=== PATIENT | female | born 1990 | race Caucasian/White ===

== ENCOUNTER 2018-04-11 21:37 | Observation (INO) ==
[2018-04-12] MEDS ORDERED: Ketorolac Inj 30 MG/ML (IVP) Vial IV.PUSH ONE (01:54)
[2018-04-12 01:55] LABS: Baso # (Auto) 0.1 th/mm3 (0.0-0.2); Baso % (Auto) 0.9 % (0.0-2.0); Eos # (Auto) 0.1 th/mm3 (0.0-0.4); Eos % (Auto) 0.9 % (0.0-4.0); Hematocrit 30.9 % (35.0-46.0); Hemoglobin 10.7 gm/dL (11.6-15.3); Lymph # (Auto) 2.2 th/mm3 (1.0-4.8); Lymph % (Auto) 29.2 % (9.0-44.0); Mean Corpuscular HGB Conc 34.5 % (32.0-36.0); Mean Corpuscular Volume 81.4 fL (80.0-100.0); Mean Platelet Volume 7.1 fL (7.0-11.0); Mono # (Auto) 0.7 th/mm3 (0.0-0.9); Mono % (Auto) 9.7 % (0.0-8.0); Neut # (Auto) 4.4 th/mm3 (1.8-7.7); Neut % (Auto) 59.3 % (16.0-70.0); Platelet Count 302 th/mm3 (150-450); Red Cell Distribution Width 14.7 % (11.6-17.2); White Blood Count 7.4 th/mm3 (4.0-11.0)
[2018-04-12] MEDS ORDERED: Vancomycin Inj 1,000 MG in Sodium Chlor 0.9% Inj 250 ML IV.SIG PRN (02:00)
[2018-04-12] MEDS ORDERED: Vancomycin Inj 1 GM/200 ML PIGGYBACK IV.SIG SCH (02:00)
[2018-04-12 02:12] LABS: Activated Partial Thrombo Time 31.5 sec (24.3-30.1); Prothrombin Time 10.3 sec (9.8-11.6)
[2018-04-12 02:18] LABS: Anion Gap 5 meq/L (5-15); Blood Urea Nitrogen 12 mg/dL (7-18); Calcium 8.4 mg/dL (8.5-10.1); Carbon Dioxide 33.3 meq/L (21.0-32.0); Chloride 105 meq/L (98-107); Glomerular Filtration Rate Greater Than 89 mL/min (>89); Glucose,Random 97 mg/dL (74-106); Potassium 3.6 meq/L (3.5-5.1); Sodium 143 meq/L (136-145)
--- NOTE | 2018-04-12 03:11 | ED ---
HPI General Chief complaint: Extremity Injury, Lower Stated complaint: L Leg Complaint Time Seen by Provider: 04/12/18 01:22 Source: patient Mode of arrival: ambulatory History of Present Illness HPI narrative: Patient is a 28-year-old female that came because of abscess and cellulitis of her left inner thigh. She did not state anything regarding a DVT initially but apparently she did say that to the triage nurse. She was [facility] and left AMA because she was not being treated correctly per her assessment. She stated that she was on 2 antibiotics and she is not sure what they were but she does remember 1 of them was vancomycin. She has history of IV drug use. MD complaint: rash Associated symptoms: denies other symptoms Related Data Home Medications Medication Instructions Recorded Confirmed lamotrigine [Lamictal XR] 400 mg PO DAILY 04/12/18 04/12/18 quetiapine [Seroquel] 400 mg PO BID 04/12/18 04/12/18 trazodone 100 mg PO HS 04/12/18 04/12/18 Allergies Allergy/AdvReac Type Severity Reaction Status Date / Time No Known Allergies Allergy Unverified 04/11/18 22:23 Review of Systems ROS: all other systems reviewed are negative Integumentary/Breasts Comments: Redness cellulitis and areas of induration of left inner thigh. [facility] Medical History Medical History History of hysterectomy (Acute) Anxiety and depression (Acute) Arthritis, rheumatoid (Acute) Asthma (Acute) Hepatitis C (Acute) Social History Social History Substance History: Active Abuse Second Hand Smoke Exposure: Yes Smoking Status: Current every day smoker Tobacco Type: Cigarettes How Often Do You Have a Drink Containing Alcohol: Monthly or less Recent Travel in [facility] within the Last 8 Weeks: No Recent Out of Country Travel within the Last 8 Weeks: No Immunization History Tetanus Immunization: Unsure Course Initial Documented Vital Signs Temperature 98.8 F 04/11/18 22:23 Pulse Rate 102 H 04/11/18 22:23 Respiratory Rate 16 04/11/18 22:23 Blood Pressure 133/79 04/11/18 22:23 Pulse Oximetry 100 04/11/18 22:23 Last Documented Vital Signs Temperature 98.7 F 04/12/18 23:44 Pulse Rate 90 04/12/18 23:44 Respiratory Rate 16 04/12/18 23:44 Blood Pressure 106/62 04/12/18 23:44 Pulse Oximetry 98 08/17/18 23:44 Medical Decision Making MDM Narrative Medical decision making narrative: Patient with cellulitis and multiple indurations on the left inner thigh. She will be admitted for IV antibiotics and further consultation. Blood cultures were obtained and we also requested fax from [facility] for her cultures with the results being equivocal since she had some with yeast growth some without any growth and they were repeated prior to her coming to our facility. She was given Vancomycin was admitted for further evaluation and consultation. Medical Screen Exam Complete: Yes Emergency Medical Condition: Yes Lab Data Lab results reviewed: Yes I reviewed the patient's lab results. Result diagrams: 04/12/18 01:40 04/12/18 01:40 Lab Results 04/12/18 04/12/18 04/12/18 Range/Units 01:40 01:40 01:40 WBC 7.4 (4.0-11.0) th/mm3 RBC 3.80 L (4.00-5.30) mil/mm3 Hgb 10.7 L (11.6-15.3) gm/dL Hct 30.9 L (35.0-46.0) % MCV 81.4 (80.0-100.0) fL MCH 28.0 (27.0-34.0) pg MCHC 34.5 (32.0-36.0) % RDW 14.7 (11.6-17.2) % Plt Count 302 (150-450) th/mm3 MPV 7.1 (7.0-11.0) fL Neut % (Auto) 59.3 (16.0-70.0) % Lymph % (Auto) 29.2 (9.0-44.0) % Bay % (Auto) 9.7 H (0.0-8.0) % Eos % (Auto) 0.9 (0.0-4.0) % Baso % (Auto) 0.9 (0.0-2.0) % Neut # (Auto) 4.4 (1.8-7.7) th/mm3 Lymph # (Auto) 2.2 (1.0-4.8) th/mm3 Bay # (Auto) 0.7 (0.0-0.9) th/mm3 Eos # (Auto) 0.1 (0.0-0.4) th/mm3 Baso # (Auto) 0.1 (0.0-0.2) th/mm3 WBC Differential . Differential Comment Auto diff final ESR (0-20) mm/hr PT 10.3 (9.8-11.6) sec INR 1.0 Ratio APTT 31.5 H (24.3-30.1) sec Sodium 143 (136-145) meq/L Potassium 3.6 (3.5-5.1) meq/L Chloride 105 (98-107) meq/L Carbon Dioxide 33.3 H (21.0-32.0) meq/L Anion Gap 5 (5-15) meq/L BUN 12 (7-18) mg/dL Creatinine 0.64 (0.50-1.00) mg/dL Estimated GFR Greater than 89 (>89) mL/min Random Glucose 97 (74-106) mg/dL Lactic Acid (0.4-2.0) mmol/L Calcium 8.4 L (8.5-10.1) mg/dL 04/12/18 04/12/18 Range/Units 01:40 01:40 WBC (4.0-11.0) th/mm3 RBC (4.00-5.30) mil/mm3 Hgb (11.6-15.3) gm/dL Hct (35.0-46.0) % MCV (80.0-100.0) fL MCH (27.0-34.0) pg MCHC (32.0-36.0) % RDW (11.6-17.2) % Plt Count (150-450) th/mm3 MPV (7.0-11.0) fL Neut % (Auto) (16.0-70.0) % Lymph % (Auto) (9.0-44.0) % Bay % (Auto) (0.0-8.0) % Eos % (Auto) (0.0-4.0) % Baso % (Auto) (0.0-2.0) % Neut # (Auto) (1.8-7.7) th/mm3 Lymph # (Auto) (1.0-4.8) th/mm3 Bay # (Auto) (0.0-0.9) th/mm3 Eos # (Auto) (0.0-0.4) th/mm3 Baso # (Auto) (0.0-0.2) th/mm3 WBC Differential Differential Comment ESR 69 H (0-20) mm/hr PT (9.8-11.6) sec INR Ratio APTT (24.3-30.1) sec Sodium (136-145) meq/L Potassium (3.5-5.1) meq/L Chloride (98-107) meq/L Carbon Dioxide (21.0-32.0) meq/L Anion Gap (5-15) meq/L BUN (7-18) mg/dL Creatinine (0.50-1.00) mg/dL Estimated GFR (>89) mL/min Random Glucose (74-106) mg/dL Lactic Acid 0.6 (0.4-2.0) mmol/L Calcium (8.5-10.1) mg/dL Imaging Data Radiologist's impression: Chest X-Ray 04/12/18 00:00 CONCLUSION: Likely perihilar infiltrate on the right. Follow-up to normalization would be recommended. Discharge Plan Discharge Disposition Patient Disposition: 28 Still Patient Discharge Condition Condition: Good Discharge Details Diagnosis: Cellulitis and abscess of left leg, Drug abuse, IV Physicians Team ED Provider: Jensen Grigsby Primary Care Provider: Primary Care Do Neri Attending Provider: Ramesh Covarrubais Discharge Interventions Interventions: ED Discharge Assessment Last Done: 04/12/18 08:07 Vital Signs Last Done: 04/12/18 01:53 Status ED Status: Left Department Discharge Information Discharge Date/Time: 04/12/18 08:08
[2018-04-12] MEDS ORDERED: Acetaminophen 325 MG Tablet PO PRN (04:45)
[2018-04-12] MEDS ORDERED: Bisacodyl 10 MG Supp RECTAL PRN ×2 (04:45)
[2018-04-12] MEDS ORDERED: Temazepam 15 MG Capsule PO PRN (04:45)
[2018-04-12] MEDS: Sod Chloride 0.9% Inj 1,000 ML IV.CONT SCH ×2 (04:49→15:56)
[2018-04-12] MEDS: Senna/Docusate Sodium 8.6/50 MG Tablet PO SCH ×2 (08:12→20:24)
[2018-04-12] MEDS: Acetaminophen 325 MG Tablet PO PRN (08:12)
[2018-04-12] MEDS ORDERED: Senna/Docusate Sodium 8.6/50 MG Tablet PO SCH (09:00)
--- NOTE | 2018-04-12 09:04 | XR ---
EXAM DATE: 04/12/2018 9:01 AM EDT AGE/SEX: 28 years / Female INDICATIONS: Pain with breathing. CLINICAL DATA: This is the patient's initial encounter. Patient reports that signs and symptoms have been present for 1 day and indicates a pain score of 2/10. MEDICAL/SURGICAL HISTORY: None. None. COMPARISON: No prior exams available for comparison. FINDINGS: There is focal opacity in the right perihilar and right suprahilar region, likely inflammatory infilt rate. Left lung is clear. No effusion is present. Cardiac contours are satisfactory. CONCLUSION: Likely perihilar infiltrate on the right. Follow-up to normalization would be recommended. Electronically signed by: Larry Christopher MD 04/12/2018 9:03 AM EDT
[2018-04-12] MEDS: Piperacil/Tazo 3.375 GM Premix 50 ML IV.SIG SCH ×2 (10:15→18:04)
[2018-04-12] MEDS: Enoxaparin Inj 40 MG/0.4 ML Syringe SQ SCH (11:12)
--- NOTE | 2018-04-12 17:32 | P.HP ---
History of Present Illness Service: Hospitalist Primary Care Physician: No Primary Care Physician Chief Complaint: Infection in leg History of Present Illness: Patient is a 28-year-old female who presented to the emergency room on 04/12/18 with a complaint of infection in her left leg. Past medical history includes asthma, rheumatoid arthritis, depression and hepatitis C (not treated; low count). She was recently a patient at [facility] where she was being treated for the infection. Per her report she was getting vancomycin plus another antibiotic that she does not know the name of. Infection had been improving. She also reports that they told her she had a superficial blood clot in that leg. She left because she was not happy with how they were taking care of her. She also reports that she had a prior infection in February in her right breast that was treated with I&D and Bactrim plus Cipro. That infection has resolved per her report. She is seen lying in bed. She complains of a bad headache. She has also complaining of right-sided back/chest pain. Some pain with inspiration. No cough or sputum production. Denies any history of respiratory problems other than asthma. She does not take anything for her asthma other than occasional use of an albuterol inhaler. Denies any nausea vomiting or diarrhea. No fever or chills. She is noted to have multiple small skin lesions and scars over her legs and arms bilaterally. 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 She has recently quit that job as of February. Review of Systems All other systems reviewed negative except as stated in HPI PMFSH - History History Provided By: Patient - Medical History Medical History: Medical History (Last Updated 04/12/18 @ 17:09 by MARK Herron) History of hysterectomy (Acute) Anxiety and depression Arthritis, rheumatoid Asthma Hepatitis C - Family History Family History: Family History (Last Reviewed 04/12/18 @ 17:09 by MARK Herron) Grandparent Myocardial infarct Grandparent Pulmonary fibrosis Mother Non-Hodgkin lymphoma - Tobacco History Second Hand Smoke Exposure: Yes Tobacco Use In Past 30 Days: Yes Smoking Status: Current every day smoker Tobacco Type: Cigarettes - Alcohol History How Often Do You Have a Drink Containing Alcohol: Monthly or less - Substance Use History Substance History: Active Abuse - Travel History Recent Travel in the [place] Within the Last 8 Weeks: No Recent Travel Out of the Country Within the Last 8 Weeks: No - Immunization History Tetanus Immunization: Unsure Medications and Allergies Active Medications: Active Medications Acetaminophen (Tylenol) 650 mg PO Q4H PRN PRN Reason: PAIN 1-10 OR TEMP > 100.4 F Last Admin: 04/12/18 08:12 Dose: 650 mg Al Hydroxide/Mg Hydroxide (Milk Of Magnesia Liq) 30 ml PO Q12H PRN PRN Reason: Mild Constipation Bisacodyl (Dulcolax Supp) 10 mg RECTAL DAILY PRN PRN Reason: SEVERE CONSITIPATION Enoxaparin Sodium (Lovenox Inj) 40 mg SQ DAILY [facility] Last Admin: 04/12/18 11:12 Dose: Not Given Vancomycin HCl 1,000 mg/ (Sodium Chloride) 250 mls @ 250 mls/hr IV.SIG HAZMAT CDL A DRIVER PRN PRN Reason: SEE LABEL COMMENTS Last Infusion: 04/12/18 07:31 Dose: Infused Sodium Chloride (Ns Inj) 1,000 mls @ 100 mls/hr IV.CONT .Q10H [facility] Last Admin: 04/12/18 15:56 Dose: 100 mls/hr Piperacillin/Tazobactam/Dextrose (Zosyn 3.375 Gm Premix) 50 mls @ 100 mls/hr IV.SIG Q8H [facility] Last Infusion: 04/12/18 11:03 Dose: Infused Ketorolac Tromethamine (Toradol) 10 mg PO Q6H PRN PRN Reason: PAIN SCALE 1 TO 10 Lactulose (Lactulose Liq) 30 ml PO DAILY PRN PRN Reason: SEVERE CONSITIPATION Nicotine (Habitrol 21 Mg Patch.24 Hr) 1 patch T-DERMAL DAILY [facility] Last Admin: 04/12/18 16:32 Dose: Not Given Ondansetron HCl (Zofran Inj) 4 mg IV.PUSH Q6H PRN PRN Reason: NAUSEA OR VOMITING Patch Removal (Remove Old Patch) 1 each T-DERMAL DAILY [facility] Senna/Docusate Sodium (Stephenie-Colace) 1 tab PO BID [facility] Last Admin: 04/12/18 08:12 Dose: Not Given Sennosides (Senokot) 17.2 mg PO Q12H PRN PRN Reason: Moderate Constipation Temazepam (Restoril) 15 mg PO HS PRN PRN Reason: INSOMNIA Allergies Allergy/AdvReac Type Severity Reaction Status Date / Time No Known Allergies Allergy Unverified 04/11/18 22:23 Home Medications Medication Instructions Recorded Confirmed Type lamotrigine [Lamictal XR] 400 mg PO DAILY 04/12/18 04/12/18 History quetiapine [Seroquel] 400 mg PO BID 04/12/18 04/12/18 History trazodone 100 mg PO HS 04/12/18 04/12/18 History Exam Vital signs: Vital Signs 04/11/18 22:23 04/12/18 01:53 04/12/18 02:29 Temperature 98.8 F Pulse Rate 102 H 88 Respiratory Rate 16 16 16 Blood Pressure 133/79 123/76 Pulse Oximetry 100 98 04/12/18 04:54 04/12/18 12:01 04/12/18 16:00 Temperature 98.2 F 97.9 F Pulse Rate 65 78 70 Respiratory Rate 16 20 20 Blood Pressure 96/53 L 140/60 136/62 Pulse Oximetry 98 98 96 Intake & Output 04/11/18 04/12/18 04/12/18 18:59 06:59 18:59 Intake Total 1300 / 1300 Balance 1300 / 1300 Weight 72 kg Intake: IV 1300 / 1300 NS Inj 1,000 ML @ 100 mls/hr IV 1000 / 1000 .CONT .Q10H [facility] Rx#:[id number] Zosyn 3.375 GM Premix 50 ML @ 50 / 50 100 mls/hr IV.SIG Q8H [facility] Rx#: [id number] Vancomycin Inj 1,000 MG In NS 250 / 250 Inj 250 ML @ 250 mls/hr IV.SIG HAZMAT CDL A DRIVER PRN Rx#:[id number] Oral 0 / 0 Narrative: GENERAL: Well-nourished, well-developed adult female in no obvious distress. SKIN: Warm and dry. Multiple small lesions and scars across arms and legs bilaterally. Left leg inner thigh to knee area of erythema and mild swelling. Noted prior outline of borders -current area of infection is much smaller. No drainage. No indication of injury. HEAD: Atraumatic. Normocephalic. CARDIOVASCULAR: Regular rate and rhythm. RESPIRATORY: No accessory muscle use. Clear to auscultation. Breath sounds equal bilaterally. GASTROINTESTINAL: Abdomen soft, non-tender, distended. Positive bowel sounds. MUSCULOSKELETAL: Extremities without clubbing, cyanosis, or edema. Scoliosis. NEUROLOGICAL: Awake and alert. No obvious cranial nerve deficits. Motor grossly within normal limits. Normal speech. PSYCHIATRIC: Appropriate mood and affect; insight and judgment good. Results - Labs CBC & Chem 7: 04/12/18 01:40 04/12/18 01:40 Labs: Laboratory Results - last 24 hr 04/12/18 04/12/18 04/12/18 01:40 01:40 01:40 WBC 7.4 RBC 3.80 L Hgb 10.7 L Hct 30.9 L MCV 81.4 MCH 28.0 MCHC 34.5 RDW 14.7 Plt Count 302 MPV 7.1 Neut % (Auto) 59.3 Lymph % (Auto) 29.2 Posey % (Auto) 9.7 H Eos % (Auto) 0.9 Baso % (Auto) 0.9 Neut # (Auto) 4.4 Lymph # (Auto) 2.2 Posey # (Auto) 0.7 Eos # (Auto) 0.1 Baso # (Auto) 0.1 WBC Differential . Differential Comment Auto diff final ESR PT 10.3 INR 1.0 APTT 31.5 H Sodium 143 Potassium 3.6 Chloride 105 Carbon Dioxide 33.3 H Anion Gap 5 BUN 12 Creatinine 0.64 Estimated GFR Greater than 89 Random Glucose 97 Lactic Acid Calcium 8.4 L 04/12/18 04/12/18 01:40 01:40 WBC RBC Hgb Hct MCV MCH MCHC RDW Plt Count MPV Neut % (Auto) Lymph % (Auto) Posey % (Auto) Eos % (Auto) Baso % (Auto) Neut # (Auto) Lymph # (Auto) Posey # (Auto) Eos # (Auto) Baso # (Auto) WBC Differential Differential Comment ESR 69 H PT INR APTT Sodium Potassium Chloride Carbon Dioxide Anion Gap BUN Creatinine Estimated GFR Random Glucose Lactic Acid 0.6 Calcium - Imaging Impressions Chest X-Ray 04/12/18 00:00 CONCLUSION: Likely perihilar infiltrate on the right. Follow-up to normalization would be recommended. Caprini VTE Risk Assessment Caprini VTE Risk Assessment: No/Low Risk (score <= 1) VTE Pharmacological Exception Reason: Patient refusal VTE Mechanical Exception: LE injury/wound Caprini Risk Assessment Model: Point Value = 1 Point Value = 2 Point Value = 3 Point Value = 5 Age 41-60 Minor surgery BMI > 25 kg/m2 Swollen legs Varicose veins or History of unexplained or recurrent spontaneous Oral contraceptives or hormone replacement Sepsis (< 1 month) Serious lung disease, including pneumonia (< 1 month) Abnormal pulmonary function Acute myocardial infarction Congestive heart failure (< 1 month) History of inflammatory bowel disease Medical patient at bed rest Age 61-74 Arthroscopic surgery Major open surgery (> 45 min) Laparoscopic surgery (> 45 min) Malignancy Confined to bed (> 72 hours) Immobilizing plaster cast Central venous access Age >= 75 History of VTE Family history of VTE Factor V Leiden Prothrombin [id number] Lupus anticoagulant Anticardiolipin antibodies Elevated serum homocysteine Heparin-induced thrombocytopenia Other congenital or acquired thrombophilia Stroke (< 1 month) Elective arthroplasty Hip, pelvis, or leg fracture Acute spinal cord injury (< 1 month) Prophylaxis Regimen: Total Risk Factor Score Risk Level Prophylaxis Regimen 0-1 Low Early ambulation 2 Moderate Order ONE of the following: *Sequential Compression Device (SCD) *Heparin 5000 units SQ BID 3-4 Higher Order ONE of the following medications: *Heparin 5000 units SQ TID *Enoxaparin/Lovenox 40 mg SQ daily (WT < 150 kg, CrCl > 30 mL/min) *Enoxaparin/Lovenox 30 mg SQ daily (WT < 150 kg, CrCl > 10-29 mL/min) *Enoxaparin/Lovenox 30 mg SQ BID (WT < 150 kg, CrCl > 30 mL/min) AND/OR *Sequential Compression Device (SCD) 5 or more Highest Order ONE of the following medications: *Heparin 5000 units SQ TID (Preferred with Epidurals) *Enoxaparin/Lovenox 40 mg SQ daily (WT < 150 kg, CrCl > 30 mL/min) *Enoxaparin/Lovenox 30 mg SQ daily (WT < 150 kg, CrCl > 10-29 mL/min) *Enoxaparin/Lovenox 30 mg SQ BID (WT < 150 kg, CrCl > 30 mL/min) AND *Sequential Compression Device (SCD) Assessment and Plan - Plan Patient is a 28-year-old female who presented to the emergency room on 04/12/18 with a complaint of infection in her left leg. Past medical history includes asthma, rheumatoid arthritis, depression and hepatitis C (not treated; low count). Cellulitis-left leg -Vanco started in ED; added Zosyn -Labs grossly normal -Cultures pending; pt reports history of MRSA DVT-left leg -Reported by patient -records request from [facility] made -No associated leg pain or swelling noted; no prior history of DVT -Patient is refusing Lovenox/anticoagulant Pnx vs inflammation; Rt back/chest pain; asthma -Chest x-ray 04/12 indicated right perihilar infiltrate. -PRN Duonebs -pain could be exacerbated by underlying scoliosis; Toradol for pain control. Avoid narcotics. Anxiety/depression -Patient reports Seroquel, trazodone and Lamictal at home - continue Discussed with: Patient and nurse
[2018-04-12] MEDS ORDERED: Ketorolac 10 MG Tablet PO PRN (18:00)
[2018-04-12] MEDS: lamoTRIgine 100 MG Tablet PO SCH (20:23)
[2018-04-12] MEDS: traZODone 100 MG Tablet PO SCH (20:23)
[2018-04-13] MEDS ORDERED: Ketorolac Inj 30 MG/ML (IVP) Vial IV.PUSH ONE (00:30)
[2018-04-13] MEDS: Piperacil/Tazo 3.375 GM Premix 50 ML IV.SIG SCH ×3 (00:57→17:25)
[2018-04-13] MEDS: Sod Chloride 0.9% Inj 1,000 ML IV.CONT SCH ×2 (02:15→11:51)
[2018-04-13] MEDS ORDERED: LAMOTRIGINE 400 MG PO SCH (09:00)
[2018-04-13] MEDS: Senna/Docusate Sodium 8.6/50 MG Tablet PO SCH ×2 (09:52→21:00)
[2018-04-13] MEDS: Enoxaparin Inj 40 MG/0.4 ML Syringe SQ SCH (09:52)
[2018-04-13] MEDS: lamoTRIgine 100 MG Tablet PO SCH ×2 (09:53→20:59)
--- NOTE | 2018-04-13 15:55 | P.PN ---
Subjective Interval history: Patient is seen lying in bed. Reports that her leg feels much better and she is not having any pain in it anymore. She does wonder if she needs an echo due to the fact that she has a history of IV drug use -she was told in another facility that she might endocarditis from this. She does not have any fever. No cough. Blood cultures to date are negative. Told her at this time that there was no indication for evaluation for endocarditis. Nurse reports that patient has been refusing lab work and blood thinners as well as some other medications. Educated patient on the importance of compliance with the medical plan in order to prevent complications such as pulmonary embolism. Physical Exam Vital signs: Vital Signs 04/12/18 16:00 04/12/18 19:15 04/12/18 20:20 Temperature 97.9 F 98.5 F Pulse Rate 70 82 Respiratory Rate 20 18 16 Blood Pressure 136/62 133/76 Pulse Oximetry 96 100 04/12/18 23:44 04/13/18 03:56 04/13/18 08:27 Temperature 98.7 F 97.8 F 98.2 F Pulse Rate 90 69 68 Respiratory Rate 16 16 18 Blood Pressure 106/62 96/58 L 100/40 L Pulse Oximetry 98 100 98 04/13/18 12:38 Temperature 96.8 F L Pulse Rate 78 Respiratory Rate 18 Blood Pressure 110/60 Pulse Oximetry 98 Intake & Output 04/12/18 04/13/18 04/13/18 18:59 06:59 18:59 Intake Total 1350 / 1350 1050 / 1050 50 / 50 Balance 1350 / 1350 1050 / 1050 50 / 50 Intake: IV 1350 / 1350 1050 / 1050 50 / 50 NS Inj 1,000 ML @ 100 mls/hr IV 1000 / 1000 1000 / 1000 .CONT .Q10H [facility] Rx#:[id number] Zosyn 3.375 GM Premix 50 ML @ 100 / 100 50 / 50 50 / 50 100 mls/hr IV.SIG Q8H [facility] Rx#: [id number] Vancomycin Inj 1,000 MG In NS 250 / 250 Inj 250 ML @ 250 mls/hr IV.SIG [employer]ELOPMENT MANAGER PRN Rx#:[id number] Oral 0 / 0 Narrative: GENERAL: Well-nourished, well-developed adult female in no obvious distress. SKIN: Warm and dry. Multiple small lesions and scars across arms and legs bilaterally. Left leg inner thigh to knee area of erythema and mild swelling. Noted prior outline of borders -current area of infection is much smaller. No drainage. No indication of injury. HEAD: Atraumatic. Normocephalic. CARDIOVASCULAR: Regular rate and rhythm. RESPIRATORY: No accessory muscle use. Clear to auscultation. Breath sounds equal bilaterally. GASTROINTESTINAL: Abdomen soft, non-tender, distended. Positive bowel sounds. MUSCULOSKELETAL: Extremities without clubbing, cyanosis, or edema. Scoliosis. NEUROLOGICAL: Awake and alert. No obvious cranial nerve deficits. Motor grossly within normal limits. Normal speech. PSYCHIATRIC: Appropriate mood and affect; insight and judgment good. Results - Labs CBC & Chem 7: 04/12/18 01:40 04/12/18 01:40 Microbiology 04/12/18 01:45 Blood - Peripheral Aerobic Blood Culture - Preliminary No growth in 1 day 04/12/18 01:45 Blood - Peripheral Anaerobic Blood Culture - Preliminary No growth in 1 day 04/12/18 01:40 Blood - Peripheral Aerobic Blood Culture - Preliminary No growth in 1 day 04/12/18 01:40 Blood - Peripheral Anaerobic Blood Culture - Preliminary No growth in 1 day Assessment and Plan - Plan Patient is a 28-year-old female who presented to the emergency room on 04/12/18 with a complaint of infection in her left leg. Past medical history includes asthma, rheumatoid arthritis, depression and hepatitis C (not treated; low count). Cellulitis-left leg -Vanco started in ED; added Zosyn. Per patient she received IV vancomycin at [facility] for 4 days prior to being admitted at [place]. -Labs grossly normal -Cultures pending; pt reports history of MRSA; 04/13 no growth in 1 day DVT-left leg -Reported by patient -records request from [facility] made -No associated leg pain or swelling noted; no prior history of DVT Noncompliance with medical plan -Patient is refusing Lovenox/anticoagulant -Education provided Pnx vs inflammation; Rt back/chest pain; asthma -Chest x-ray 04/12 indicated right perihilar infiltrate. -PRN Duonebs -pain could be exacerbated by underlying scoliosis; Toradol for pain control. Avoid narcotics. Anxiety/depression -Patient reports Seroquel, trazodone and Lamictal at home - continue Discussed with: Patient and nurse
[2018-04-13] MEDS: Ketorolac Inj 30 MG/ML (IVP) Vial IV.PUSH PRN (17:25)
[2018-04-13 18:25] LABS: Baso # (Auto) 0.1 th/mm3 (0.0-0.2); Baso % (Auto) 0.9 % (0.0-2.0); Eos # (Auto) 0.2 th/mm3 (0.0-0.4); Eos % (Auto) 2.7 % (0.0-4.0); Hematocrit 31.3 % (35.0-46.0); Hemoglobin 10.4 gm/dL (11.6-15.3); Lymph # (Auto) 2.1 th/mm3 (1.0-4.8); Lymph % (Auto) 33.2 % (9.0-44.0); Mean Corpuscular HGB Conc 33.2 % (32.0-36.0); Mean Corpuscular Hemoglobin 27.6 pg (27.0-34.0); Mean Corpuscular Volume 83.1 fL (80.0-100.0); Mean Platelet Volume 8.1 fL (7.0-11.0); Mono # (Auto) 0.6 th/mm3 (0.0-0.9); Mono % (Auto) 9.5 % (0.0-8.0); Neut # (Auto) 3.4 th/mm3 (1.8-7.7); Neut % (Auto) 53.7 % (16.0-70.0); Platelet Count 298 th/mm3 (150-450); Red Blood Count 3.77 mil/mm3 (4.00-5.30); Red Cell Distribution Width 14.4 % (11.6-17.2); White Blood Count 6.3 th/mm3 (4.0-11.0)
[2018-04-13 18:49] LABS: Alanine Aminotransferase 37 U/L (10-53); Albumin 2.4 g/dL (3.4-5.0); Anion Gap 6 meq/L (5-15); Aspartate Aminotransferase 32 U/L (15-37); Blood Urea Nitrogen 11 mg/dL (7-18); Calcium 8.5 mg/dL (8.5-10.1); Carbon Dioxide 31.5 meq/L (21.0-32.0); Chloride 104 meq/L (98-107); Glomerular Filtration Rate Greater Than 89 mL/min (>89); Glucose,Random 73 mg/dL (74-106); Sodium 141 meq/L (136-145)
[2018-04-13 18:51] LABS: Alkaline Phosphatase 87 U/L (45-117); Total Protein 7.2 g/dL (6.4-8.2)
[2018-04-13] MEDS: traZODone 100 MG Tablet PO SCH (21:00)
[2018-04-14] MEDS: Piperacil/Tazo 3.375 GM Premix 50 ML IV.SIG SCH ×3 (02:21→16:13)
[2018-04-14] MEDS: lamoTRIgine 100 MG Tablet PO SCH ×2 (11:13→20:32)
[2018-04-14] MEDS: Enoxaparin Inj 40 MG/0.4 ML Syringe SQ SCH (11:14)
[2018-04-14] MEDS: Senna/Docusate Sodium 8.6/50 MG Tablet PO SCH ×2 (11:14→21:01)
[2018-04-14] MEDS: Ketorolac Inj 30 MG/ML (IVP) Vial IV.PUSH PRN ×2 (11:15→20:28)
--- NOTE | 2018-04-14 15:48 | P.PN ---
Subjective Interval history: Patient is seen lying quietly in bed. She denies any fever or chills. No nausea vomiting or diarrhea. No new leg pain or swelling. Physical Exam Vital signs: Vital Signs 04/13/18 17:55 04/13/18 19:23 04/13/18 23:16 Temperature 98.2 F 98.7 F 99.2 F Pulse Rate 68 83 92 H Respiratory Rate 20 16 16 Blood Pressure 130/80 115/69 106/53 L Pulse Oximetry 96 100 97 04/14/18 03:46 04/14/18 08:00 04/14/18 12:00 Temperature 99 F 98.5 F 99.0 F Pulse Rate 85 78 78 Respiratory Rate 16 16 16 Blood Pressure 107/57 L 110/73 121/71 Pulse Oximetry 100 98 98 Intake & Output 04/13/18 04/14/18 04/14/18 18:59 06:59 18:59 Intake Total 100 / 100 50 / 50 50 / 50 Balance 100 / 100 50 / 50 50 / 50 Intake: IV 100 / 100 50 / 50 50 / 50 Zosyn 3.375 GM Premix 50 ML @ 100 / 100 50 / 50 50 / 50 100 mls/hr IV.SIG Q8H [facility] Rx#: [id number] Narrative: GENERAL: Well-nourished, well-developed adult female in no obvious distress. SKIN: Warm and dry. Multiple small lesions and scars across arms and legs bilaterally. Left leg inner thigh to knee area of erythema and mild swelling has almost completely resolved. No drainage. No indication of injury. HEAD: Atraumatic. Normocephalic. CARDIOVASCULAR: Regular rate and rhythm. RESPIRATORY: No accessory muscle use. Clear to auscultation. Breath sounds equal bilaterally. GASTROINTESTINAL: Abdomen soft, non-tender, distended. Positive bowel sounds. MUSCULOSKELETAL: Extremities without clubbing, cyanosis, or edema. Scoliosis. NEUROLOGICAL: Awake and alert. No obvious cranial nerve deficits. Motor grossly within normal limits. Normal speech. PSYCHIATRIC: Appropriate mood and affect; insight and judgment good. Results - Labs CBC & Chem 7: 04/13/18 17:12 04/13/18 17:12 Laboratory Results - last 24 hr 04/13/18 04/13/18 17:12 17:12 WBC 6.3 RBC 3.77 L Hgb 10.4 L Hct 31.3 L MCV 83.1 MCH 27.6 MCHC 33.2 RDW 14.4 Plt Count 298 MPV 8.1 Neut % (Auto) 53.7 Lymph % (Auto) 33.2 [place] % (Auto) 9.5 H Eos % (Auto) 2.7 Baso % (Auto) 0.9 Neut # (Auto) 3.4 Lymph # (Auto) 2.1 [place] # (Auto) 0.6 Eos # (Auto) 0.2 Baso # (Auto) 0.1 WBC Differential . Differential Comment Auto diff final Sodium 141 Potassium 4.0 Chloride 104 Carbon Dioxide 31.5 Anion Gap 6 BUN 11 Creatinine 0.70 Estimated GFR Greater than 89 Random Glucose 73 L Calcium 8.5 Total Bilirubin 0.1 L AST 32 ALT 37 Alkaline Phosphatase 87 Total Protein 7.2 Albumin 2.4 L Microbiology 04/12/18 01:45 Blood - Peripheral Aerobic Blood Culture - Preliminary No growth in 2 days 04/12/18 01:45 Blood - Peripheral Anaerobic Blood Culture - Preliminary No growth in 2 days 04/12/18 01:40 Blood - Peripheral Aerobic Blood Culture - Preliminary No growth in 2 days 04/12/18 01:40 Blood - Peripheral Anaerobic Blood Culture - Preliminary No growth in 2 days Assessment and Plan - Plan Patient is a 28-year-old female who presented to the emergency room on 04/12/18 with a complaint of infection in her left leg. Past medical history includes asthma, rheumatoid arthritis, depression and hepatitis C (not treated; low count). Cellulitis-left leg -Vanco started in ED; added Zosyn. Per patient she received IV vancomycin at [facility] for 4 days prior to being admitted at [place]. -Labs grossly normal -Cultures pending; pt reports history of MRSA; 04/14 no growth in 2 day DVT-left leg -Reported by patient -records request from [facility] NSB made -No associated leg pain or swelling noted; no prior history of DVT Noncompliance with medical plan -Patient is refusing Lovenox/anticoagulant -Education provided Pnx vs inflammation; Rt back/chest pain; asthma -Chest x-ray 04/12 indicated right perihilar infiltrate. -PRN Duonebs -pain could be exacerbated by underlying scoliosis; Toradol for pain control. Avoid narcotics. Anxiety/depression -Patient reports Seroquel, trazodone and Lamictal at home - continue Discussed with: Patient and nurse Discharge planning: Will likely discharge home tomorrow on Bactrim and Augmentin if cultures remain negative
[2018-04-14] MEDS: Acetaminophen 325 MG Tablet PO PRN (16:15)
--- NOTE | 2018-04-14 17:44 | US ---
EXAM DATE: 04/14/2018 5:41 PM EDT AGE/SEX: 28 years / Female INDICATIONS: Left leg pain. CLINICAL DATA: This is the patient's initial encounter. Patient reports that signs and symptoms have been present for 2 days and indicates a pain score of 3/10. MEDICAL/SURGICAL HISTORY: Asthma. Hepatitis C. Rheumatoid arthritis. Hysterectomy. COMPARISON: No prior exams available for comparison. TECHNIQUE: Venous ultrasound of both lower extremities was performed from the inguinal ligament to t he proximal calf. Real-time, color Doppler and spectral tracing, compression and augmentation techni ques were used. FINDINGS: Normal compression of the deep venous system from the inguinal region to the proximal calf . No echogenic clot is seen. Normal response of the venous system to augmentation and respiration. A sonographically normal-appearing lymph node is seen in the left groin measuring 2.3 x 1.5 x 0.4 cm. CONCLUSION: 1. The study is negative for lower extremity deep venous thrombosis. Electronically signed by: Porter Schmidt MD 04/14/2018 5:43 PM EDT
[2018-04-14] MEDS: traZODone 100 MG Tablet PO SCH (20:29)
[2018-04-15] MEDS: Piperacil/Tazo 3.375 GM Premix 50 ML IV.SIG SCH ×2 (01:17→09:32)
[2018-04-15 04:57] VITALS: PULSE 72; RESP 16
--- NOTE | 2018-04-15 07:42 | P.PN ---
Subjective Interval history: Patient is seen lying quietly in bed. Denies any chest pain or shortness of breath. No nausea vomiting or diarrhea. She tells me she is ready to go home. Physical Exam Vital signs: Vital Signs 04/14/18 08:00 04/14/18 12:00 04/14/18 16:00 Temperature 98.5 F 99.0 F 98.7 F Pulse Rate 78 78 83 Respiratory Rate 16 16 16 Blood Pressure 110/73 121/71 126/71 Pulse Oximetry 98 98 100 04/14/18 20:00 04/14/18 23:56 04/15/18 00:37 Temperature 98.8 F 97.8 F Pulse Rate 84 75 Respiratory Rate 16 16 17 Blood Pressure 115/66 105/64 Pulse Oximetry 100 100 04/15/18 04:00 Temperature 98 F Pulse Rate 72 Respiratory Rate 16 Blood Pressure 106/59 L Pulse Oximetry 99 Intake & Output 04/14/18 04/15/18 04/15/18 18:59 06:59 18:59 Intake Total 100 / 100 290 / 290 Balance 100 / 100 290 / 290 Intake: IV 100 / 100 50 / 50 Zosyn 3.375 GM Premix 50 ML @ 100 / 100 50 / 50 100 mls/hr IV.SIG Q8H [facility] Rx#: [id number] Oral 240 / 240 Other: # Voids 4 Narrative: GENERAL: Well-nourished, well-developed adult female in no obvious distress. SKIN: Warm and dry. Multiple small lesions and scars across arms and legs bilaterally. Left leg inner thigh to knee area of erythema and mild swelling has resolved. No drainage. No indication of injury. HEAD: Atraumatic. Normocephalic. CARDIOVASCULAR: Regular rate and rhythm. RESPIRATORY: No accessory muscle use. Clear to auscultation. Breath sounds equal bilaterally. GASTROINTESTINAL: Abdomen soft, non-tender, distended. Positive bowel sounds. MUSCULOSKELETAL: Extremities without clubbing, cyanosis, or edema. Scoliosis. NEUROLOGICAL: Awake and alert. No obvious cranial nerve deficits. Motor grossly within normal limits. Normal speech. PSYCHIATRIC: Appropriate mood and affect; insight and judgment good. Results - Labs CBC & Chem 7: 04/13/18 17:12 04/13/18 17:12 Microbiology 04/12/18 01:45 Blood - Peripheral Aerobic Blood Culture - Preliminary No growth in 2 days 04/12/18 01:45 Blood - Peripheral Anaerobic Blood Culture - Preliminary No growth in 2 days 04/12/18 01:40 Blood - Peripheral Aerobic Blood Culture - Preliminary No growth in 2 days 04/12/18 01:40 Blood - Peripheral Anaerobic Blood Culture - Preliminary No growth in 2 days - Imaging Impressions Venous Doppler Study 04/14/18 00:00 CONCLUSION: 1. The study is negative for lower extremity deep venous thrombosis. Assessment and Plan - Plan Patient is a 28-year-old female who presented to the emergency room on 04/12/18 with a complaint of infection in her left leg. Past medical history includes asthma, rheumatoid arthritis, depression and hepatitis C (not treated; low count). Cellulitis-left leg -Vanco started in ED; added Zosyn. Per patient she received IV vancomycin at [facility] for 4 days prior to being admitted at [place]. Will discharge home with Augmentin and Bactrim. -Labs grossly normal -Cultures pending; pt reports history of MRSA; 04/14 no growth in 2 day DVT-left leg -Reported by patient -records request from [facility] NSB made. Unable to obtain records. Repeat ultrasound 04/15 showed no DVT. -No associated leg pain or swelling noted; no prior history of DVT Noncompliance with medical plan -Patient is refusing Lovenox/anticoagulant -Education provided Pnx vs inflammation; Rt back/chest pain; asthma -Chest x-ray 04/12 indicated right perihilar infiltrate. -PRN Duonebs -pain could be exacerbated by underlying scoliosis; Toradol for pain control. Avoid narcotics. Anxiety/depression -Patient reports Seroquel, trazodone and Lamictal at home - continue Discussed with: Patient and nurse Discharge planning: Discharge home today
--- NOTE | 2018-04-15 07:46 | P.DS ---
Date of admission: 04/12/18 04:44 Primary care physician: No Primary Care Physician Attending physician on discharge: Ramesh Covarrubias Anticipated date of discharge: 04/15/18 Brief History from admission: Patient is a 28-year-old female who presented to the emergency room on 04/12/18 with a complaint of infection in her left leg. Past medical history includes asthma, rheumatoid arthritis, depression and hepatitis C (not treated; low count). She was recently a patient at [facility] where she was being treated for the infection. Per her report she was getting vancomycin plus another antibiotic that she does not know the name of. Infection had been improving. She also reports that they told her she had a superficial blood clot in that leg. She left because she was not happy with how they were taking care of her. She also reports that she had a prior infection in February in her right breast that was treated with I&D and Bactrim plus Cipro. That infection has resolved per her report. She is seen lying in bed. She complains of a bad headache. She has also complaining of right-sided back/chest pain. Some pain with inspiration. No cough or sputum production. Denies any history of respiratory problems other than asthma. She does not take anything for her asthma other than occasional use of an albuterol inhaler. Denies any nausea vomiting or diarrhea. No fever or chills. She is noted to have multiple small skin lesions and scars over her legs and arms bilaterally. 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 She has recently quit that job as of February. DS: Diagnosis - Discharge Diagnosis (1) Cellulitis and abscess of left leg Status: Acute DS: Medications - Discharge Medications Prescriptions: amoxicillin-pot clavulanate 1 tab PO Q12HR #14 tab sulfamethoxazole-trimethoprim 1 tab PO Q12HR #14 tab DS: Summary Hospital Course: Patient is a 28-year-old female who presented to the emergency room on 04/12/18 with a complaint of infection in her left leg. Past medical history includes asthma, rheumatoid arthritis, depression and hepatitis C (not treated; low count). Pt reports history of MRSA in left breast abscess treated earlier this year. Diagnosis of Cellulitis-left leg. Treated with both IV Vanco and Zosyn. Per patient she received IV vancomycin at [facility] for 4 days prior to being admitted at [place]. Discharge home with Augmentin and Bactrim for additional coverage based on history. Labs grossly normal during stay. Cultures no growth for 72 hours. Patient also had a complaint of DVT-left leg which she said was initially diagnosed in [facility]. They told her it was superficial. Records request from [facility] NSB made. Unable to obtain records. Repeat ultrasound 04/15 showed no DVT. No associated leg pain or swelling noted; no prior history of DVT. Patient was noted to be noncompliant with medical plan during her stay. Consistently refused Lovenox despite education. - Time Spent with Patient Total time spent providing and/or coordinating discharge services: Less than 30 minutes - Quality: VTE Deep Vein Thrombosis/Pulmonary Embolism Present on Admission: No Exam Vital signs: Vital Signs 04/14/18 08:00 04/14/18 12:00 04/14/18 16:00 Temperature 98.5 F 99.0 F 98.7 F Pulse Rate 78 78 83 Respiratory Rate 16 16 16 Blood Pressure 110/73 121/71 126/71 Pulse Oximetry 98 98 100 04/14/18 20:00 04/14/18 23:56 04/15/18 00:37 Temperature 98.8 F 97.8 F Pulse Rate 84 75 Respiratory Rate 16 16 17 Blood Pressure 115/66 105/64 Pulse Oximetry 100 100 04/15/18 04:00 Temperature 98 F Pulse Rate 72 Respiratory Rate 16 Blood Pressure 106/59 L Pulse Oximetry 99 Intake & Output 04/14/18 04/15/18 04/15/18 18:59 06:59 18:59 Intake Total 100 / 100 290 / 290 Balance 100 / 100 290 / 290 Intake: IV 100 / 100 50 / 50 Zosyn 3.375 GM Premix 50 ML @ 100 / 100 50 / 50 100 mls/hr IV.SIG Q8H [facility] Rx#: [id number] Oral 240 / 240 Other: # Voids 4 Narrative: GENERAL: Well-nourished, well-developed adult female in no obvious distress. SKIN: Warm and dry. Multiple small lesions and scars across arms and legs bilaterally. Left leg inner thigh to knee area of erythema and mild swelling has resolved. No drainage. No indication of injury. HEAD: Atraumatic. Normocephalic. CARDIOVASCULAR: Regular rate and rhythm. RESPIRATORY: No accessory muscle use. Clear to auscultation. Breath sounds equal bilaterally. GASTROINTESTINAL: Abdomen soft, non-tender, distended. Positive bowel sounds. MUSCULOSKELETAL: Extremities without clubbing, cyanosis, or edema. Scoliosis. NEUROLOGICAL: Awake and alert. No obvious cranial nerve deficits. Motor grossly within normal limits. Normal speech. PSYCHIATRIC: Appropriate mood and affect; insight and judgment good. Results Procedures completed during hospitalization: none Labs on day of discharge: Preliminary micro results at discharge 04/12/18 01:45 Aerobic Blood Culture - Preliminary Blood - Peripheral No growth in 2 days Anaerobic Blood Culture - Preliminary No growth in 2 days 04/12/18 01:40 Aerobic Blood Culture - Preliminary Blood - Peripheral No growth in 2 days Anaerobic Blood Culture - Preliminary No growth in 2 days - Impressions ITS Impressions Chest X-Ray 04/12/18 00:00 CONCLUSION: Likely perihilar infiltrate on the right. Follow-up to normalization would be recommended. Venous Doppler Study 04/14/18 00:00 CONCLUSION: 1. The study is negative for lower extremity deep venous thrombosis. Discharge Plan - Discharge Disposition Patient Disposition: Discharge Home - Discharge Condition Condition: Good - Discharge Order Discharge Orders: Discharge Order (Routine); Ordered 04/15/18 Ordered By: Flori Almanzar - Physicians Team Primary Care Provider: Primary Care [place],Do Attending Provider: Ramesh Covarrubias
[2018-04-15 08:45] VITALS: BP 120/75; TEMP 97.6; O2SAT 100
[2018-04-15] MEDS ORDERED: Amoxicillin/Clavulanate 875/125 MG Tablet PO SCH (09:00)
[2018-04-15] MEDS: lamoTRIgine 100 MG Tablet PO SCH (10:02)
[2018-04-15] MEDS: Enoxaparin Inj 40 MG/0.4 ML Syringe SQ SCH (10:02)
[2018-04-15] MEDS: Senna/Docusate Sodium 8.6/50 MG Tablet PO SCH (10:25)
== END 2018-04-15 10:59 | disposition home or self-care (01) ==
LOC: NEPC 21:37 → NEPGCP 21:37 → NEDA 21:37 → NEPGCP 04-12 07:24
PROVIDERS: ADMIT Hospitalist; ATTEND Hospitalist

== ENCOUNTER 2018-06-18 09:34 | Inpatient (IN) ==
[2018-06-18] MEDS ORDERED: Acetaminophen 325 MG Tablet PO ONE (11:20)
[2018-06-18] MEDS ORDERED: Ketorolac Inj 30 MG/ML (IVP) Vial IV.PUSH ONE (11:20)
[2018-06-18] MEDS ORDERED: Sod Chloride 0.9% Inj 1,000 ML IV.SIG SCH ×2 (11:30→13:15)
--- NOTE | 2018-06-18 12:08 | XR ---
EXAM DATE: 06/18/2018 11:20 AM EDT AGE/SEX: 28 years / Female INDICATIONS: Fever and left leg pain. CLINICAL DATA: This is the patient's initial encounter. Patient reports that signs and symptoms have been present for 1 day and indicates a pain score of 5/10. MEDICAL/SURGICAL HISTORY: . Asthma. Hepatitis C. Rheumatoid arthritis. Hysterectomy. COMPARISON: [facility] [place], CHEST 1V SINGLE AP, 04/12/2018. . FINDINGS: Focal rounded infiltrate or mass in the left midlung. Resolution of right perihilar parenchymal proce ss. No evidence of effusion. Cardiac contours are stable and satisfactory. CONCLUSION: Left lung presumed infiltrate. Follow-up to resolution recommended Electronically signed by: Larry Christopher MD 06/18/2018 12:07 PM EDT
[2018-06-18 12:29] LABS: Baso # (Auto) 0.1 th/mm3 (0.0-0.2); Baso % (Auto) 0.4 % (0.0-2.0); Eos # (Auto) 0.1 th/mm3 (0.0-0.4); Eos % (Auto) 0.4 % (0.0-4.0); Hematocrit 34.1 % (35.0-46.0); Hemoglobin 11.3 gm/dL (11.6-15.3); Lymph # (Auto) 2.4 th/mm3 (1.0-4.8); Lymph % (Auto) 11.2 % (9.0-44.0); Mean Corpuscular HGB Conc 33.2 % (32.0-36.0); Mean Corpuscular Hemoglobin 27.5 pg (27.0-34.0); Mean Corpuscular Volume 82.8 fL (80.0-100.0); Mean Platelet Volume 7.2 fL (7.0-11.0); Mono # (Auto) 1.8 th/mm3 (0.0-0.9); Mono % (Auto) 8.3 % (0.0-8.0); Neut % (Auto) 79.7 % (16.0-70.0); Platelet Count 332 th/mm3 (150-450); Red Blood Count 4.12 mil/mm3 (4.00-5.30); Red Cell Distribution Width 15.4 % (11.6-17.2); White Blood Count 21.4 th/mm3 (4.0-11.0)
--- NOTE | 2018-06-18 12:33 | ED ---
HPI General Chief complaint: Extremity Problem,Nontraumatic Stated complaint: Poss Blood Clot Time Seen by Provider: 06/18/18 11:14 Source: patient Mode of arrival: ambulatory Limitations: no limitations History of Present Illness HPI Narrative: 28-year-old female with a history of IV drug use presents to the emergency department evaluation of left lower extremity pain that has worsened over the last couple of days. Patient states Sunday she was watching TV when she started having pain in the left thigh. She says she thought she hit her thigh however, the pain is worsened and decided to come in today for evaluation. She states that she has felt feverish and had chills. Her pain in the leg is worse with movement and palpation described as aching. Patient states she takes Subutex but he used IV Dilaudid prior to come to the emergency department today to relieve some of her pain. She states that she has injected into the left leg previously and has multiple injection points. She says that she was here in the emergency department, admitted and discharged Bactrim and Cipro but patient did not take this medication because she could not obtain the medication free of charge. MD Complaint: Reports extremity pain Onset (ago): day(s) Pain Consistency: constant Location: Reports left Quality: Reports aching Radiation: Reports none Relieving factors: nothing Exacerbating factors: weight bearing, walking and palpation Associated symptoms: Reports fever and myalgias; Denies chest pain, shortness of breath and rash Related Data Home Medications Medication Instructions Recorded Confirmed lamotrigine [Lamictal XR] 400 mg PO DAILY 04/12/18 06/18/18 quetiapine [Seroquel] 400 mg PO BID 04/12/18 06/18/18 trazodone 100 mg PO HS 04/12/18 06/18/18 Allergies Allergy/AdvReac Type Severity Reaction Status Date / Time telithromycin [From Ketek] Allergy Hives Verified 06/18/18 09:52 Review of Systems ROS: all other systems reviewed are negative [facility] Medical History Medical History History of hysterectomy (Acute) Anxiety and depression (Acute) Arthritis, rheumatoid (Acute) Asthma (Acute) Hepatitis C (Acute) Social History Social History Substance History: Active Abuse Second Hand Smoke Exposure: Yes Smoking Status: Current every day smoker Tobacco Type: Cigarettes How Often Do You Have a Drink Containing Alcohol: Monthly or less Recent Travel in [facility] within the Last 8 Weeks: No Recent Out of Country Travel within the Last 8 Weeks: No Substance Abuse Detail Opiates: Substance Use Status: Active Route Used Substance Abuse: Intravenously Substance Frequency: daily Immunization History Tetanus Immunization: >5 Years Exam Narrative Exam Narrative: GENERAL: Well-developed, well-nourished in mild distress, anxious and sad appearing SKIN: Focused skin assessment warm/dry. Multiple superficial ulcerations to the upper and lower extremities. Left lower extremity-tenderness to palpation of the thigh, focused in the left groin with questionable enlargement of a lymph node. Lower anterior mid thigh with apparent lymphangitis. No edema or erythema to leg. HEAD: Atraumatic. Normocephalic. EYES: Pupils equal and round. No scleral icterus. No injection or drainage. ENT: No nasal bleeding or discharge. Mucous membranes pink and moist. NECK: Trachea midline. No JVD. CARDIOVASCULAR: Regular rate and rhythm. No murmur appreciated. RESPIRATORY: No accessory muscle use. Breath sounds equal bilaterally. Diffuse rhonchi present GASTROINTESTINAL: Abdomen soft, non-tender, nondistended. Hepatic and splenic margins not palpable. No CVA tenderness MUSCULOSKELETAL: No obvious deformities. No clubbing. No cyanosis. No edema. NEUROLOGICAL: Awake and alert. No obvious cranial nerve deficits. Motor grossly within normal limits. Normal speech. PSYCHIATRIC: Appropriate mood and affect; insight and judgment normal. Course Initial Documented Vital Signs Temperature 100.2 F H 06/18/18 09:49 Pulse Rate 114 H 06/18/18 09:49 Respiratory Rate 15 06/18/18 09:49 Blood Pressure 149/79 H 06/18/18 09:49 Pulse Oximetry 98 06/18/18 09:49 Last Documented Vital Signs Temperature 99.3 F 06/18/18 13:26 Pulse Rate 107 H 06/18/18 10:07 Respiratory Rate 17 06/18/18 10:07 Blood Pressure 137/77 06/18/18 10:07 Pulse Oximetry 100 06/18/18 10:07 Medical Decision Making MDM Narrative Medical decision making narrative: 28-year-old female presents to the emergency department for evaluation of left lower extremity pain that is been worsening since Sunday. Patient denies trauma to the area but thought she may bumped it because of the pain. She says the pain is worsened she decided to come in today for evaluation. She says she took IV Dilaudid prior to come to the emergency department today to relieve some of her pain. Patient stated that she has a history of a DVT however, there is no evidence of this and [place] record. Patient was admitted and administered antibiotics for an apparent infection in the left leg. DVT was ruled out at this time. Vital signs: Heart rate 107, temperature 100.7, blood pressure 137/77, 100% on room air. Physical exam findings are unconvincing of a DVT but rather thrombophlebitis. Rhonchi present diffusely in the lung manzano. She denies shortness of breath or chest pain at this time. Chest x-ray shows left lung presumed infiltrate. EKG sinus tachycardia without STEMI changes. No previous EKG for comparison. Labs are notable for white blood cell 21.4, neutrophil percentage 79.7, sodium 134, potassium 4.0, chloride 100, lactic acid 1.2. 2 L normal saline initiated IV. Toradol and Tylenol administered for pain and developing fever. I spoke my attending about this patient who agreed this patient should be admitted with IV abx. Vancomycin initiated. I spoke with the patient about the admission and plan for treatment. She asked if me if she would be able to fly to [place] to see her children but I could not assure her of this. I asked her to discuss with the admission physician and advised against leaving [place] as this could result in . She agreed to stay in the hospital for evaluation and discuss with the admitting physician. I spoke with Dr. Sierra who agreed to the admission. Medical Screen Exam Complete: Yes Emergency Medical Condition: Yes Differential Diagnosis Differential Diagnosis: Sepsis, thrombophlebitis, bacteremia Lab Data Result diagrams: 06/18/18 12:04 06/18/18 12:04 Lab Results 06/18/18 06/18/18 06/18/18 Range/Units 12:04 12:04 12:04 WBC 21.4 H (4.0-11.0) th/mm3 RBC 4.12 (4.00-5.30) mil/mm3 Hgb 11.3 L (11.6-15.3) gm/dL Hct 34.1 L (35.0-46.0) % MCV 82.8 (80.0-100.0) fL MCH 27.5 (27.0-34.0) pg MCHC 33.2 (32.0-36.0) % RDW 15.4 (11.6-17.2) % Plt Count 332 (150-450) th/mm3 MPV 7.2 (7.0-11.0) fL Neut % (Auto) 79.7 H (16.0-70.0) % Lymph % (Auto) 11.2 (9.0-44.0) % Bailey % (Auto) 8.3 H (0.0-8.0) % Eos % (Auto) 0.4 (0.0-4.0) % Baso % (Auto) 0.4 (0.0-2.0) % Neut # (Auto) 17.0 H (1.8-7.7) th/mm3 Lymph # (Auto) 2.4 (1.0-4.8) th/mm3 Bailey # (Auto) 1.8 H (0.0-0.9) th/mm3 Eos # (Auto) 0.1 (0.0-0.4) th/mm3 Baso # (Auto) 0.1 (0.0-0.2) th/mm3 WBC Differential . Differential Comment Auto diff final PT 11.6 (9.8-11.6) sec INR 1.1 Ratio APTT 38.9 H (24.3-30.1) sec Sodium 134 L (136-145) meq/L Potassium 4.0 (3.5-5.1) meq/L Chloride 100 (98-107) meq/L Carbon Dioxide 26.6 (21.0-32.0) meq/L Anion Gap 7 (5-15) meq/L BUN 9 (7-18) mg/dL Creatinine 0.66 (0.50-1.00) mg/dL Estimated GFR Greater than 89 (>89) mL/min Random Glucose 106 (74-106) mg/dL Lactic Acid (0.4-2.0) mmol/L Calcium 8.7 (8.5-10.1) mg/dL Magnesium 1.8 (1.5-2.5) mg/dL Total Bilirubin 0.3 (0.2-1.0) mg/dL AST 16 (15-37) U/L ALT 35 (10-53) U/L Alkaline Phosphatase 99 (45-117) U/L Total Protein 8.5 H (6.4-8.2) g/dL Albumin 2.7 L (3.4-5.0) g/dL 06/18/18 Range/Units 12:04 WBC (4.0-11.0) th/mm3 RBC (4.00-5.30) mil/mm3 Hgb (11.6-15.3) gm/dL Hct (35.0-46.0) % MCV (80.0-100.0) fL MCH (27.0-34.0) pg MCHC (32.0-36.0) % RDW (11.6-17.2) % Plt Count (150-450) th/mm3 MPV (7.0-11.0) fL Neut % (Auto) (16.0-70.0) % Lymph % (Auto) (9.0-44.0) % Bailey % (Auto) (0.0-8.0) % Eos % (Auto) (0.0-4.0) % Baso % (Auto) (0.0-2.0) % Neut # (Auto) (1.8-7.7) th/mm3 Lymph # (Auto) (1.0-4.8) th/mm3 Bailey # (Auto) (0.0-0.9) th/mm3 Eos # (Auto) (0.0-0.4) th/mm3 Baso # (Auto) (0.0-0.2) th/mm3 WBC Differential Differential Comment PT (9.8-11.6) sec INR Ratio APTT (24.3-30.1) sec Sodium (136-145) meq/L Potassium (3.5-5.1) meq/L Chloride (98-107) meq/L Carbon Dioxide (21.0-32.0) meq/L Anion Gap (5-15) meq/L BUN (7-18) mg/dL Creatinine (0.50-1.00) mg/dL Estimated GFR (>89) mL/min Random Glucose (74-106) mg/dL Lactic Acid 1.2 (0.4-2.0) mmol/L Calcium (8.5-10.1) mg/dL Magnesium (1.5-2.5) mg/dL Total Bilirubin (0.2-1.0) mg/dL AST (15-37) U/L ALT (10-53) U/L Alkaline Phosphatase (45-117) U/L Total Protein (6.4-8.2) g/dL Albumin (3.4-5.0) g/dL Imaging Data Radiologist's impression: Chest X-Ray 06/18/18 11:20 CONCLUSION: Left lung presumed infiltrate. Follow-up to resolution recommended Discharge Plan Discharge Disposition Patient Disposition: 28 Still Patient Discharge Condition Condition: Stable Discharge Details Diagnosis: Drug abuse, IV, Sepsis Physicians Team ED Provider: Prem Hanson ED Midlevel Provider: Carmen Ledezma Primary Care Provider: Primary Care Do Neri Attending Provider: Emperatriz Sierra Status ED Status: Admitted Patient
[2018-06-18 12:43] LABS: Alanine Aminotransferase 35 U/L (10-53); Albumin 2.7 g/dL (3.4-5.0); Anion Gap 7 meq/L (5-15); Aspartate Aminotransferase 16 U/L (15-37); Blood Urea Nitrogen 9 mg/dL (7-18); Calcium 8.7 mg/dL (8.5-10.1); Carbon Dioxide 26.6 meq/L (21.0-32.0); Chloride 100 meq/L (98-107); Glomerular Filtration Rate Greater Than 89 mL/min (>89); Glucose,Random 106 mg/dL (74-106); Magnesium 1.8 mg/dL (1.5-2.5); Sodium 134 meq/L (136-145)
[2018-06-18 12:46] LABS: Activated Partial Thrombo Time 38.9 sec (24.3-30.1); Alkaline Phosphatase 99 U/L (45-117); INR 1.1 Ratio; Prothrombin Time 11.6 sec (9.8-11.6); Total Protein 8.5 g/dL (6.4-8.2)
[2018-06-18] MEDS ORDERED: Vancomycin Inj 1,250 MG in Sodium Chlor 0.9% Inj 250 ML IV.SIG ONE (13:11)
[2018-06-18] MEDS ORDERED: Bisacodyl 10 MG Supp RECTAL PRN (13:51)
[2018-06-18] MEDS ORDERED: Naloxone Inj 0.4 MG/ML Vial IV.PUSH PRN ×2 (13:53→16:12)
[2018-06-18] MEDS ORDERED: Enoxaparin Inj 40 MG/0.4 ML Syringe SQ SCH (14:00)
[2018-06-18] MEDS ORDERED: Vancomycin Consult Pharmacy 1 EACH OTHER SCH (14:00)
[2018-06-18 15:24] LABS: Bacteria,Urine Rare /hpf; Bilirubin,Urine Negative (Negative); Clarity,Urine Hazy (Clear); Color,Urine Yellow (Yellw/Straw); Glucose,Urine (UA) Negative (Negative); Leukocyte Esterase,Urine Negative (Negative); Mucus,Urine Few /lpf (Occasional); Nitrite,Urine Negative (Negative); Squamous Epithelial Cell,Urine 20 /hpf (0-5)
[2018-06-18] MEDS ORDERED: Ketorolac Inj 30 MG/ML (IVP) Vial IV.PUSH PRN (16:12)
--- NOTE | 2018-06-18 16:34 | P.HPIM ---
History of Present Illness Service: [facility] Primary Care Physician: No Primary Care Physician Chief Complaint: Mild left leg hurts. History of Present Illness: 28-year-old white female with a history of polysubstance abuse on Subutex for chronic back pain presents to the emergency room due to 2-day history of intermittent chills of fever and increased left upper leg pain. She states that she injected IV Dilaudid earlier today and states that this is the first time she is use IV Dilaudid. She also admits to using meth and marijuana. She also reports a 1 day history of acute onset of bilateral chest pain worse when she takes a deep breath. She denies any shortness of breath nor any coughing. She was admitted here back in March for left lower leg cellulitis and superficial femoral phlebitis. She is refusing Lovenox injections for DVT prophylaxis at this time. She denies any nausea or vomiting. She denies any abdominal pain nor any constipation or diarrhea. She denies any symptoms of dysuria or frequency or urgency. - Diagnosis (1) Drug abuse, IV (2) Sepsis Inpatient Certification: I certify that the inpatient services were ordered in accordance with Medicare regulations governing the order. This includes certification that hospital inpatient services are reasonable and necessary and in the case of services not specified as inpatient-only under 42 CFR 419.22(n), that they are appropriately provided as inpatient services in accordance to with the 2-midnight benchmark under 43 CFR 412.3(e) Estimated Total Length of Stay (Days): 3 Plans for Post Hospital Care: Home Review of Systems All other systems reviewed negative except as stated in [facility] - History History Provided By: Patient - Medical History Medical History: Medical History (Last Reviewed 06/18/18 @ 16:25 by Emperatriz Sierra MD) History of hysterectomy (Acute) Anxiety and depression Arthritis, rheumatoid Asthma Hepatitis C - Surgical History Surgical History: Surgical History (Last Updated 06/18/18 @ 16:26 by Emperatriz Sierra MD) History of hysterectomy (Acute) - Family History Family History: Family History (Last Reviewed 06/18/18 @ 16:26 by Emperatriz Sierra MD) Grandparent Myocardial infarct Grandparent Pulmonary fibrosis Mother Non-Hodgkin lymphoma - Social History I have reviewed the patient's Social History: Yes - Tobacco History Second Hand Smoke Exposure: Yes Tobacco Use In Past 30 Days: Yes Smoking Status: Current every day smoker Tobacco Type: Cigarettes - Alcohol History How Often Do You Have a Drink Containing Alcohol: Monthly or less - Substance Use History Substance History: Active Abuse - Substance Use Type Opiates Type: METH Status: Active Route Used: Inhalation Frequency: daily Marijuana Status: Active Route Used: Inhalation Reason for Use: Calm Down - Travel History Recent Travel in the [place] Within the Last 8 Weeks: No Recent Travel Out of the Country Within the Last 8 Weeks: No - Immunization History Tetanus Immunization: Unsure Hx Influenza Vaccine This Season: No Medications and Allergies Active Medications: Active Medications Acetaminophen (Tylenol) 650 mg PO Q6HR PRN PRN Reason: PAIN SCALE 1 TO 2 Al Hydroxide/Mg Hydroxide (Milk Of Magnesia Liq) 30 ml PO Q12H PRN PRN Reason: Mild Constipation Bisacodyl (Dulcolax Supp) 10 mg RECTAL DAILY PRN PRN Reason: SEVERE CONSITIPATION Enoxaparin Sodium (Lovenox Inj) 40 mg SQ Q24H CHASIDY Sodium Chloride (Ns Inj) 1,000 mls @ 0 mls/hr IV.SIG BOLUS CHASIDY Last Infusion: 06/18/18 13:25 Dose: Infused Sodium Chloride (Ns Inj) 1,000 mls @ 0 mls/hr IV.SIG BOLUS CHASIDY Last Infusion: 06/18/18 16:16 Dose: Infused Pharmacy Profile Note (Vancomycin Consult Pharmacy) 0 mls @ 0 mls/hr OTHER UNSCH CHASIDY Vancomycin HCl 1,000 mg/ (Sodium Chloride) 250 mls @ 250 mls/hr IV.SIG Q12H CHASIDY Piperacillin/Tazobactam/Dextrose (Zosyn 3.375 Gm Premix) 50 mls @ 100 mls/hr IV.SIG Q6H CHASIDY Ketorolac Tromethamine (Toradol Inj) 30 mg IV.PUSH Q6H PRN PRN Reason: PAIN 6-10;IF UNABLE TO TAKE PO Stop: 06/23/18 16:11 Ketorolac Tromethamine (Toradol Inj) 15 mg IV.PUSH Q6H PRN PRN Reason: PAIN 3-5; IF UABLE TO TAKE PO Stop: 06/23/18 16:11 Lactulose (Lactulose Liq) 30 ml PO DAILY PRN PRN Reason: SEVERE CONSITIPATION Methadone HCl (Dolophine) 10 mg PO Q12HR CHASIDY Naloxone HCl (Narcan Inj) 0.4 mg IV.PUSH UNSCH PRN PRN Reason: SEE LABEL COMMENTS Naloxone HCl (Narcan Inj) 0.4 mg IV.PUSH UNSCH PRN PRN Reason: SEE LABEL COMMENTS Ondansetron HCl (Zofran Inj) 4 mg IV.PUSH Q6H PRN PRN Reason: NAUSEA OR VOMITING Senna/Docusate Sodium (Stephenie-Colace) 1 tab PO BID [facility] Sennosides (Senokot) 17.2 mg PO Q12H PRN PRN Reason: Moderate Constipation Allergies Allergy/AdvReac Type Severity Reaction Status Date / Time telithromycin [From Ketek] Allergy Hives Verified 06/18/18 09:52 Home Medications Medication Instructions Recorded Confirmed Type lamotrigine [Lamictal XR] 400 mg PO DAILY 04/12/18 06/18/18 History quetiapine [Seroquel] 400 mg PO BID 04/12/18 06/18/18 History trazodone 100 mg PO HS 04/12/18 06/18/18 History Exam Vital signs: Vital Signs 06/18/18 09:49 06/18/18 10:07 06/18/18 13:26 Temperature 100.2 F H 99.3 F Pulse Rate 114 H 107 H Respiratory Rate 15 17 Blood Pressure 149/79 H 137/77 Pulse Oximetry 98 100 06/18/18 15:37 Temperature Pulse Rate 76 Respiratory Rate 17 Blood Pressure 105/64 Pulse Oximetry 98 Intake & Output 06/17/18 06/18/18 06/18/18 18:59 06:59 18:59 Intake Total 2262.5 / 2262.5 Balance 2262.5 / 2262.5 Weight 56.699 kg Intake: IV 2262.5 / 2262.5 NS Inj 1,000 ML @ Wide Open IV. 1999 SIG BOLUS CHASIDY Rx#:[id number] Vancomycin Inj 1,250 MG In NS 262.5 / 262.5 Inj 250 ML @ 250 mls/hr IV.SIG ONCE ONE Rx#:[id number] Other: Date of Last Bowel Movement 06/16/18 Narrative: GENERAL: Well-nourished well-developed white female in no acute distress SKIN: Warm and dry. Multiple track michel bilateral upper extremities. Bilateral lower extremity with crust-like lesions left upper, inner thigh revealed a area of redness and induration with pain and warmth on touch. Patient with also superficial thrombophlebitis changes in the left upper thigh HEAD: Atraumatic. Normocephalic. EYES: Pupils equal and round. No scleral icterus. No injection or drainage. ENT: No nasal bleeding or discharge. Mucous membranes pink and moist. NECK: Trachea midline. No JVD. CARDIOVASCULAR: Tachycardiac rate and regular rhythm. RESPIRATORY: No accessory muscle use. Clear to auscultation. Breath sounds equal bilaterally. GASTROINTESTINAL: Abdomen soft, non-tender, nondistended. Hepatic and splenic margins not palpable. Normoactive bowel sounds MUSCULOSKELETAL: Extremities without clubbing, cyanosis, or edema. No obvious deformities. NEUROLOGICAL: Awake and alert. No obvious cranial nerve deficits. Motor grossly within normal limits. Five out of 5 muscle strength in the arms and legs. Normal speech. PSYCHIATRIC: Appropriate mood and affect; Results - Labs CBC & Chem 7: 06/18/18 12:04 06/18/18 12:04 Labs: Short CBC 06/18/18 Range/Units 12:04 WBC 21.4 H (4.0-11.0) th/mm3 Hgb 11.3 L (11.6-15.3) gm/dL Hct 34.1 L (35.0-46.0) % Plt Count 332 (150-450) th/mm3 BMP 06/18/18 12:04 Sodium 134 L Potassium 4.0 Chloride 100 Carbon Dioxide 26.6 BUN 9 Creatinine 0.66 Calcium 8.7 Liver Function 06/18/18 Range/Units 12:04 Total Bilirubin 0.3 (0.2-1.0) mg/dL AST 16 (15-37) U/L ALT 35 (10-53) U/L Alkaline Phosphatase 99 (45-117) U/L Albumin 2.7 L (3.4-5.0) g/dL Urine 06/18/18 Range/Units 15:03 Urine Color Yellow (Yellw/Straw) Urine Clarity Hazy H (Clear) Urine pH 6.0 (5.0-8.5) Ur Specific [place] 1.020 (1.002-1.035) Urine Protein Negative (Neg-Trace) mg/dL Urine Glucose (UA) Negative (Negative) mg/dL - Imaging Impressions Chest X-Ray 06/18/18 11:20 CONCLUSION: Left lung presumed infiltrate. Follow-up to resolution recommended Caprini VTE Risk Assessment Caprini VTE Risk Assessment: Moderate/High Risk (score >= 2) Caprini Risk Assessment Model: Point Value = 1 Point Value = 2 Point Value = 3 Point Value = 5 Age 41-60 Minor surgery BMI > 25 kg/m2 Swollen legs Varicose veins or History of unexplained or recurrent spontaneous Oral contraceptives or hormone replacement Sepsis (< 1 month) Serious lung disease, including pneumonia (< 1 month) Abnormal pulmonary function Acute myocardial infarction Congestive heart failure (< 1 month) History of inflammatory bowel disease Medical patient at bed rest Age 61-74 Arthroscopic surgery Major open surgery (> 45 min) Laparoscopic surgery (> 45 min) Malignancy Confined to bed (> 72 hours) Immobilizing plaster cast Central venous access Age >= 75 History of VTE Family history of VTE Factor V Leiden Prothrombin [id number] Lupus anticoagulant Anticardiolipin antibodies Elevated serum homocysteine Heparin-induced thrombocytopenia Other congenital or acquired thrombophilia Stroke (< 1 month) Elective arthroplasty Hip, pelvis, or leg fracture Acute spinal cord injury (< 1 month) Prophylaxis Regimen: Total Risk Factor Score Risk Level Prophylaxis Regimen 0-1 Low Early ambulation 2 Moderate Order ONE of the following: *Sequential Compression Device (SCD) *Heparin 5000 units SQ BID 3-4 Higher Order ONE of the following medications: *Heparin 5000 units SQ TID *Enoxaparin/Lovenox 40 mg SQ daily (WT < 150 kg, CrCl > 30 mL/min) *Enoxaparin/Lovenox 30 mg SQ daily (WT < 150 kg, CrCl > 10-29 mL/min) *Enoxaparin/Lovenox 30 mg SQ BID (WT < 150 kg, CrCl > 30 mL/min) AND/OR *Sequential Compression Device (SCD) 5 or more Highest Order ONE of the following medications: *Heparin 5000 units SQ TID (Preferred with Epidurals) *Enoxaparin/Lovenox 40 mg SQ daily (WT < 150 kg, CrCl > 30 mL/min) *Enoxaparin/Lovenox 30 mg SQ daily (WT < 150 kg, CrCl > 10-29 mL/min) *Enoxaparin/Lovenox 30 mg SQ BID (WT < 150 kg, CrCl > 30 mL/min) AND *Sequential Compression Device (SCD) Assessment and Plan - Assessment (1) Drug abuse, IV Code(s): F19.10 - Other psychoactive substance abuse, uncomplicated Status: Acute (2) Sepsis Code(s): A41.9 - Sepsis, unspecified organism Status: Acute - Plan 28-year-old white female with a history of anxiety depression, asthma, active IV polysubstance abuse with recent IV Dilaudid use just prior to coming to the emergency room with 1. Sepsis present on admission with leukocytosis and tachycardiasource likely due to left leg cellulitis, suspect bacteremia due to active polysubstance abuse Patient started on broad-spectrum IV antibiotics with vancomycin and Zosyn. Will obtain ID consult. Follow-up with blood cultures. Check for 2D echo to rule out endocarditis. 2. Chest pain- Rule out underlying septic emboli, chest x-ray revealed infiltrate, obtain a CTA pulmonary. 3. Left lower leg pain likely due to cellulitis versus superficial femoral phlebitiswill obtain Doppler ultrasound to rule out DVT. Continue pain control and IV antibiotics. 4. Active IV polysubstance abusecessation counseling provided. 5. Chronic pain syndrome will initiate methadone; Toradol IV for breakthrough pain. 6. DVT prophylaxispatient refusing Lovenox, will initiate Xarelto. H&P: Quality - VTE Deep Vein Thrombosis/Pulmonary Embolism Present on Admission: Yes (2) Sepsis Qualifiers: Sepsis type: sepsis due to unspecified organism Qualified Code(s): A41.9 - Sepsis, unspecified organism
[2018-06-18] MEDS: Piperacil/Tazo 3.375 GM Premix 50 ML IV.SIG SCH (17:24)
[2018-06-18] MEDS: Ketorolac Inj 30 MG/ML (IVP) Vial IV.PUSH PRN (17:31)
--- NOTE | 2018-06-18 18:41 | P.CONID ---
History of Present Illness Service: ID Consult date: 06/18/18 Requesting Physician: Emperatriz Sierra Reason for Consult: sepsis IVDU Primary Care Provider: No Primary Care Physician Chief Complaint: Mild left leg hurts. History of Present Illness: 28 F IVDU dvelopped pain in L thigh where she was shooting IV drugs before Pain was going on for couple days then got better and today became much worse to the point of unbearable She also developped fevers and chills and with above complaints she presented to ER Her WBC is 20K pain is severe and she cant move her leg 2/2 pain Hemodynamically she is stable Review of Systems All other systems reviewed negative except as stated in HPI PMFSH - History History Provided By: Patient - Medical History Medical History: Medical History (Last Reviewed 06/18/18 @ 21:16 by Pippa Grande MD) Anxiety and depression Arthritis, rheumatoid Asthma Hepatitis C - Surgical History Surgical History: Surgical History (Last Reviewed 06/18/18 @ 21:16 by Pippa Grande MD) History of hysterectomy (Acute) - Family History Family History: Family History (Last Reviewed 06/18/18 @ 21:16 by Pippa Grande MD) Grandparent Myocardial infarct Grandparent Pulmonary fibrosis Mother Non-Hodgkin lymphoma - Social History I have reviewed the patient's Social History: Yes - Tobacco History Second Hand Smoke Exposure: Yes Tobacco Use In Past 30 Days: Yes Smoking Status: Current every day smoker Tobacco Type: Cigarettes - Alcohol History How Often Do You Have a Drink Containing Alcohol: Monthly or less - Substance Use History Substance History: Active Abuse - Substance Use Type Opiates Type: METH Status: Active Route Used: Inhalation Frequency: daily Marijuana Status: Active Route Used: Inhalation Reason for Use: Calm Down - Travel History Recent Travel in the [place] Within the Last 8 Weeks: No Recent Travel Out of the Country Within the Last 8 Weeks: No - Immunization History Tetanus Immunization: Unsure Hx Influenza Vaccine This Season: No Medications and Allergies Active Medications: Active Medications Acetaminophen (Tylenol) 650 mg PO Q6HR PRN PRN Reason: PAIN SCALE 1 TO 2 Al Hydroxide/Mg Hydroxide (Milk Of Magnesia Liq) 30 ml PO Q12H PRN PRN Reason: Mild Constipation Bisacodyl (Dulcolax Supp) 10 mg RECTAL DAILY PRN PRN Reason: SEVERE CONSITIPATION Sodium Chloride (Ns Inj) 1,000 mls @ 0 mls/hr IV.SIG BOLUS [facility] Last Infusion: 06/18/18 13:25 Dose: Infused Sodium Chloride (Ns Inj) 1,000 mls @ 0 mls/hr IV.SIG BOLUS CHASIDY Last Infusion: 06/18/18 16:16 Dose: Infused Pharmacy Profile Note (Vancomycin Consult Pharmacy) 0 mls @ 0 mls/hr OTHER UNSCH [facility] Piperacillin/Tazobactam/Dextrose (Zosyn 3.375 Gm Premix) 50 mls @ 100 mls/hr IV.SIG Q6H [facility] Last Infusion: 06/18/18 17:52 Dose: Infused Vancomycin HCl 1,150 mg/ (Sodium Chloride) 261.5 mls @ 250 mls/hr IV.SIG Q12H [facility] Ketorolac Tromethamine (Toradol Inj) 30 mg IV.PUSH Q6H PRN PRN Reason: PAIN 6-10;IF UNABLE TO TAKE PO Stop: 06/23/18 16:11 Last Admin: 06/18/18 17:31 Dose: 30 mg Ketorolac Tromethamine (Toradol Inj) 15 mg IV.PUSH Q6H PRN PRN Reason: PAIN 3-5; IF UABLE TO TAKE PO Stop: 06/23/18 16:11 Lactulose (Lactulose Liq) 30 ml PO DAILY PRN PRN Reason: SEVERE CONSITIPATION Methadone HCl (Dolophine) 10 mg PO Q12HR [facility] Miscellaneous Information ([facility] Ordered Lab Info) 0 each OTHER ONCE ONE Stop: 06/20/18 14:46 Naloxone HCl (Narcan Inj) 0.4 mg IV.PUSH UNSCH PRN PRN Reason: SEE LABEL COMMENTS Naloxone HCl (Narcan Inj) 0.4 mg IV.PUSH UNSCH PRN PRN Reason: SEE LABEL COMMENTS Ondansetron HCl (Zofran Inj) 4 mg IV.PUSH Q6H PRN PRN Reason: NAUSEA OR VOMITING Rivaroxaban (Xarelto) 10 mg PO DAILY [facility] Senna/Docusate Sodium (Stephenie-Colace) 1 tab PO BID [facility] Sennosides (Senokot) 17.2 mg PO Q12H PRN PRN Reason: Moderate Constipation Allergies Allergy/AdvReac Type Severity Reaction Status Date / Time telithromycin [From Ketek] Allergy Hives Verified 06/18/18 09:52 Home Medications Medication Instructions Recorded Confirmed Type lamotrigine [Lamictal XR] 400 mg PO DAILY 04/12/18 06/18/18 History quetiapine [Seroquel] 400 mg PO BID 04/12/18 06/18/18 History trazodone 100 mg PO HS 04/12/18 06/18/18 History Exam Vital signs: Vital Signs 06/18/18 09:49 06/18/18 10:07 06/18/18 13:26 Temperature 100.2 F H 99.3 F Pulse Rate 114 H 107 H Respiratory Rate 15 17 Blood Pressure 149/79 H 137/77 Pulse Oximetry 98 100 06/18/18 15:37 06/18/18 16:00 06/18/18 18:24 Temperature 99.6 F 100.8 F H Pulse Rate 76 105 H Respiratory Rate 17 20 Blood Pressure 105/64 114/65 Pulse Oximetry 98 100 Intake & Output 06/17/18 06/18/18 06/18/18 18:59 06:59 18:59 Intake Total 2552.5 / 2552.5 Output Total Balance 2551.5 / 2551.5 Weight 56.699 kg Intake: IV 2312.5 / 2312.5 Zosyn 3.375 GM Premix 50 ML @ 50 / 50 100 mls/hr IV.SIG Q6H [facility] Rx#: [id number] NS Inj 1,000 ML @ Wide Open IV. 1999 / 1999 SIG BOLUS [facility] Rx#:[id number] Vancomycin Inj 1,250 MG In NS 262.5 / 262.5 Inj 250 ML @ 250 mls/hr IV.SIG ONCE ONE Rx#:[id number] Oral 240 / 240 Output: Urine Other: Date of Last Bowel Movement 06/16/18 - Constitutional mild distress (pain) - Routine HEENT Exam Head: Present: normocephalic, atraumatic Eye: Present: EOMI, PERRL ENT: Present: mucous membranes moist, oropharynx clear - Routine Neck Exam Present: supple. Absent: JVD, lymphadenopathy - Routine Respiratory Exam Present: CTA bilaterally. Absent: accessory muscle use, respiratory distress, rhonchi - Routine Cardiovascular Exam Present: RRR, S1, S2. Absent: murmur, gallop, rubs - Routine Abdominal Exam Present: soft, normoactive bowel sounds. Absent: tenderness, distended, organomegaly, mass - Routine Extremities Exam Absent: cyanosis, clubbing Comments: STATUS LOCALIS: ill defined sizable edema of the L thigh Pian, tenderness out of proportion of skin findings no skin changes extremely decreased ROM 2/2 pain no mottling - Routine Skin Exam Present: dry, warm, lesions (multiple crusted lesions in various stages of healing). Absent: jaundice - Routine Neurological Exam Present: alert, oriented X3, CN II-XII intact, normal speech. Absent: sensory deficit, motor deficit - Routine Psychiatric Exam Present: cooperative, anxious Results - Labs CBC & Chem 7: 06/18/18 12:04 06/18/18 12:04 Labs: Laboratory Results - last 24 hr 06/18/18 06/18/18 06/18/18 12:04 12:04 12:04 WBC 21.4 H RBC 4.12 Hgb 11.3 L Hct 34.1 L MCV 82.8 MCH 27.5 MCHC 33.2 RDW 15.4 Plt Count 332 MPV 7.2 Neut % (Auto) 79.7 H Lymph % (Auto) 11.2 Hudspeth % (Auto) 8.3 H Eos % (Auto) 0.4 Baso % (Auto) 0.4 Neut # (Auto) 17.0 H Lymph # (Auto) 2.4 Hudspeth # (Auto) 1.8 H Eos # (Auto) 0.1 Baso # (Auto) 0.1 WBC Differential . Differential Comment Auto diff final PT 11.6 INR 1.1 APTT 38.9 H Sodium 134 L Potassium 4.0 Chloride 100 Carbon Dioxide 26.6 Anion Gap 7 BUN 9 Creatinine 0.66 Estimated GFR Greater than 89 Random Glucose 106 Lactic Acid Calcium 8.7 Magnesium 1.8 Total Bilirubin 0.3 AST 16 ALT 35 Alkaline Phosphatase 99 Total Protein 8.5 H Albumin 2.7 L Urine Color Urine Clarity Urine pH Ur Specific [place] Urine Protein Urine Glucose (UA) Urine Ketones Urine Occult Blood Urine Nitrate Urine Bilirubin Urine Urobilinogen Ur Leukocyte Esterase Urine RBC Urine WBC Ur Squamous Epith Cells Urine Bacteria Urine Mucus Micro UA Comment Ur Microscopic Review Urine Culture Comments 06/18/18 06/18/18 12:04 15:03 WBC RBC Hgb Hct MCV MCH MCHC RDW Plt Count MPV Neut % (Auto) Lymph % (Auto) Hudspeth % (Auto) Eos % (Auto) Baso % (Auto) Neut # (Auto) Lymph # (Auto) Hudspeth # (Auto) Eos # (Auto) Baso # (Auto) WBC Differential Differential Comment PT INR APTT Sodium Potassium Chloride Carbon Dioxide Anion Gap BUN Creatinine Estimated GFR Random Glucose Lactic Acid 1.2 Calcium Magnesium Total Bilirubin AST ALT Alkaline Phosphatase Total Protein Albumin Urine Color Yellow Urine Clarity Hazy H Urine pH 6.0 Ur Specific [place] 1.020 Urine Protein Negative Urine Glucose (UA) Negative Urine Ketones Negative Urine Occult Blood Negative Urine Nitrate Negative Urine Bilirubin Negative Urine Urobilinogen Less than 2 Ur Leukocyte Esterase Negative Urine RBC 1 Urine WBC 2 Ur Squamous Epith Cells 20 Urine Bacteria Rare H Urine Mucus Few H Micro UA Comment Culture not ind Ur Microscopic Review Not Reportable Urine Culture Comments Culture not ind - Imaging Impressions Chest X-Ray 06/18/18 11:20 CONCLUSION: Left lung presumed infiltrate. Follow-up to resolution recommended Chest CTA 06/18/18 00:00 CONCLUSION: 1. No pulmonary emboli. 2. Left lower lobe infiltrate with small area of nodularity involving the right upper lobe and small pneumatocele involving the right lower lobe which contains an air-fluid level. Overall these findings suggest infectious etiology. I would suggest a follow-up CT scan to document complete resolution. Femur MRI 06/18/18 00:00 CONCLUSION: Cellulitis/myositis in the upper medial left thigh as above. No findings of an abscess at this time. Chest X-Ray 06/18/18 11:20 CONCLUSION: Left lung presumed infiltrate. Follow-up to resolution recommended Assessment and Plan - Plan Sepsis Source: LLE. Estensive myositis, cellulitis ? undelying nec fasc I ordered urgent MRI and it just recently resulted Findings were rosanna Valencia; she has extensive edema extending to nuerovascular bundle surrounding fem artery and vein - STAT ortho consult was placed concerning nec fasc: rosanna Mcknight over the phone - cont IV abx Erik Chaudhry
--- NOTE | 2018-06-18 18:42 | P.PNADD ---
Addendum to Inpatient Note Additional information: Pt seen @ 1830 full note to follow MR w/wo bijal echeverria
--- NOTE | 2018-06-18 19:37 | ECG ---
Date Performed: 06/18/2018 Time Performed: 12:18:43 PTAGE: 28 years EKG: SINUS TACHYCARDIA WITH SHORT ME INTERVAL POSSIBLE RIGHT VENTRICULAR CONDUCTION DELAY ABNORM AL RHYTHM ECG NO PREVIOUS TRACING DOCTOR: Benigno Carreon Interpretating Date/Time 06/18/2018 19:36:00
[2018-06-18] MEDS ORDERED: Gadobutrol PF 7.5 MMOL/7.5 ML Vial (for RAD) IV.SIG ONE (19:52)
--- NOTE | 2018-06-18 20:28 | CT ---
EXAM DATE: 06/18/2018 7:27 PM EDT AGE/SEX: 28 years / Female INDICATIONS: Chest pain. CLINICAL DATA: This is the patient's initial encounter. Patient reports that signs and symptoms have been present for 1 day and indicates a pain score of 5/10. MEDICAL/SURGICAL HISTORY: Asthma. Hepatitis C. Rheumatoid arthritis. Hysterectomy. RADIATION DOSE: 5.56 CTDI (mGy) COMPARISON: No prior exams available for comparison. TECHNIQUE: Volumetric scanning was performed using a multi-row detector CT scanner during bolus infu salina of 75 ml Omnipaque 350 (iohexol) nonionic water-soluble contrast as a single exam dose. The timi a was post processed with a variety of visualization algorithms including full volume maximum intensi ty projection and sliding thin slab reformation. Using automated exposure control and adjustment of t he mA and/or kV according to patient size, radiation dose was kept as low as reasonably achievable to obtain optimal diagnostic quality images. DICOM format image data is available electronically for r eview and comparison. FINDINGS: Pulmonary Arteries: No filling defects are seen in the pulmonary arteries out to the subsegmental ve ssels. The left and right pulmonary arteries are normal in diameter. Lung: There is a 5.3 cm in diameter area of consolidation involving the left lower lobe. Air broncho grams are noted. A small pneumatocele is seen within the right lower lobe posteriorly. This contains a small air-fluid level. There is mild irregularity involving the wall but no discrete soft tissue no dule. A 5 mm nodular density is seen within the right upper lobe posteriorly. No bronchiectasis. Stephenie bronchial thickening noted particularly involving the left lower lobe.. Effusion: None. Mediastinum: No evidence of mediastinal or hilar adenopathy. Other: The axilla is unremarkable. CONCLUSION: 1. No pulmonary emboli. 2. Left lower lobe infiltrate with small area of nodularity involving the right upper lobe and small pneumatocele involving the right lower lobe which contains an air-fluid level. Overall these finding s suggest infectious etiology. I would suggest a follow-up CT scan to document complete resolution. Electronically signed by: Porter Milton MD 06/18/2018 8:27 PM EDT
--- NOTE | 2018-06-18 20:52 | MR ---
EXAM DATE: 06/18/2018 7:03 PM EDT AGE/SEX: 28 years / Female INDICATIONS: Pain in the medial mid-upper region of thigh IVDU. CLINICAL DATA: This is the patient's initial encounter. Patient reports that signs and symptoms have been present for 3 days and indicates a pain score of 9/10. MEDICAL/SURGICAL HISTORY: Carcinoma, cervical. Rheumatoid arthritis. Prior blood clot, Asthma. Hysterectomy. COMPARISON: No prior exams available for comparison. TECHNIQUE: Multiplanar, multisequence MRI examination was performed without and with 6 ml Gadavist ( gadobutrol) contrast as single exam dose. FINDINGS: Edema is identified in the subcutaneous tissues of the left upper medial thigh extending into the edgar rovascular bundle, surrounding the femoral artery and vein. The edema continues into the septum betwe en the muscle bellies of the thigh. Edema also identified in the sartorius muscle and portions of the adductor muscles. Findings are characteristic of a extensive cellulitis/myositis. There are no findi ngs of abscess formation at this time.. CONCLUSION: Cellulitis/myositis in the upper medial left thigh as above. No findings of an abscess at this time. Electronically signed by: Grzegorz Valencia MD 06/18/2018 8:51 PM EDT
--- NOTE | 2018-06-18 21:38 | ECHRPT ---
Indication: SEPSIS POSS ENDOCARDITIS CONCLUSIONS Normal left ventricular size and wall thickness. The left ventricular systolic function is normal wi th an estimated ejection fraction in the range of 60-65%. No definite regional wall motion abnormalities. There is trace tricuspid valve regurgitation. The aortic valve is not well visualized. BP: / HR: Rhythm: Sinus MEASUREMENTS (Male / Female) Normal Values Technical Quality:Technically difficult study 2D ECHO LV Diastolic Diameter PLAX 4.4 cm 4.2 - 5.9 / 3.9 - 5.3 cm LV Systolic Diameter PLAX 3.2 cm IVS Diastolic Thickness 0.8 cm 0.6 - 1.0 / 0.6 - 0.9 cm LVPW Diastolic Thickness 0.9 cm 0.6 - 1.0 / 0.6 - 0.9 cm LV Relative Wall Thickness 0.4 RV Internal Dim ED PLAX 1.6 cm LA Systolic Diameter LX 2.5 cm 3.0 - 4.0 / 2.7 - 3.8 cm M-MODE AV Cusp Separation MM 1.7 cm DOPPLER AV Peak Velocity 160.0 cm/s AV Peak Gradient 10.2 mmHg LVOT Peak Velocity 108.0 cm/s LVOT Peak Gradient 4.7 mmHg Mitral E Point Velocity 88.8 cm/s Mitral A Point Velocity 61.7 cm/s Mitral E to A Ratio 1.4 LV E' Lateral Velocity 14.3 cm/s Mitral E to LV E' Lateral Ratio 6.2 LV E' Septal Velocity 12.4 cm/s Mitral E to LV E' Septal Ratio 7.2 TR Peak Velocity 294.0 cm/s TR Peak Gradient 34.6 mmHg Right Atrial Pressure 10.0 mmHg Pulmonary Artery Systolic Pressu 44.6 mmHg Right Ventricular Systolic Press 44.6 mmHg FINDINGS LEFT VENTRICLE Normal left ventricular size and wall thickness. The left ventricular systolic function is normal wi th an estimated ejection fraction in the range of 60-65%. No definite regional wall motion abnormalities. RIGHT VENTRICLE Normal right ventricular size and systolic function. LEFT ATRIUM The left atrial size is normal. RIGHT ATRIUM The right atrial size is normal. ATRIAL SEPTUM Normal atrial septal thickness without atrial level shunting by limited color doppler interrogation. AORTA The aortic root and proximal ascending aorta are not well visualized. MITRAL VALVE Structurally normal mitral valve. No mitral valve stenosis or regurgitation. AORTIC VALVE The aortic valve is not well visualized. TRICUSPID VALVE There is trace tricuspid valve regurgitation. PULMONARY VALVE The pulmonary valve is not well visualized. VESSELS The inferior vena cava is normal in size. PERICARDIUM No pericardial effusion. Lamont Mcfarlane MD (Electronically Signed) Final Date:18 June 2018 21:37
[2018-06-18] MEDS ORDERED: Chlorhexidine Gluconate 2% 1 Pack (2 Cloths) TOPICAL ONE (21:47)
[2018-06-18] MEDS ORDERED: Sodium Chlor 0.9% Inj 500 ML IV.SIG SCH (22:00)
[2018-06-18] MEDS ORDERED: Lidocaine PF 1% Inj 5 ML Syringe OTHER ONE ×2 (22:09)
[2018-06-18] MEDS ORDERED: Phenylephrine/NS 1000 MCG/10ML Syringe IV.PUSH ONE ×2 (22:09)
[2018-06-18] MEDS ORDERED: Succinylcholine Inj 100 MG/5 ML Syringe IV.PUSH ONE ×2 (22:09)
[2018-06-18] MEDS ORDERED: SUFentanil Inj 250 MCG/5 ML Ampul ONE (22:46)
--- NOTE | 2018-06-18 22:47 | MB ---
cc: Bryan Mcknight MD DATE: 06/18/2018 REASON FOR CONSULTATION: Necrotizing fasciitis, left thigh and lower extremity. HISTORY OF PRESENT ILLNESS: A 28-year-old female with history of chronic recurrent IV drug abuse, who developed left thigh swelling for the last several days. She states she has been shooting IV drugs including heroin and also shooting her Suboxone. She states the pain has gotten severe and is constant. She developed fevers and chills. She did present to the emergency room at [place] with a white blood cell count of 20,000. She was hemodynamically stable. She was admitted to the medical service. Infectious disease was initially consulted and she did have an MRI performed. I was consulted and contacted personally by Dr. Grande from infectious disease at approximately 9:00 tonight to inform me of this patient's status and notify me of the consult personally. After discussion, I did come to the hospital emergently. I have contacted the operating room for emergent limb and life threatening surgical intervention for necrotizing fasciitis and from her IV drug abuse and severe infection. PAST MEDICAL HISTORY: Positive hepatitis C, asthma, rheumatoid arthritis, anxiety, depression, IV drug abuse. She has a history of a hysterectomy. FAMILY HISTORY: Reviewed, noncontributory. SOCIAL HISTORY: She does smoke, uses IV drugs including methamphetamines, heroin, suboxone, marijuana. REVIEW OF SYSTEMS: She has had fevers, chills, malaise, left thigh pain. All other review of systems negative for 10 systems. HOME MEDICATIONS: Include Seroquel, Lamictal and Trazodone. ALLERGIES: Erythromycin. PHYSICAL EXAMINATION: VITAL SIGNS: Temperature at admission at 100.2, pulse of 114, blood pressure 149/79, pulse of 114, respiration rate is 15, blood pressure is 149/79, saturating 98% on room air. HEENT: Normocephalic, atraumatic. Pupils round. Extraocular muscles intact. NECK: Supple. LUNGS: Clear. HEART: Regular rate and rhythm. ABDOMEN: Soft, nontender. EXTREMITIES: Left thigh swelling, tenderness to palpation. There is some evidence of fluctuance along the superior portion left thigh. She has multiple needle michel and tracks. Compartments are soft. She can flex her ankle and toes distally. White blood cell count of 21.4, hemoglobin 11, hematocrit 34, platelet 332. Creatinine 0.66, glucose 106, potassium 4.0. Chest x-ray shows a left lung infiltrate. CTA of the chest shows no pulmonary embolism. MRI of the femur shows myositis and cellulitis consistent with necrotizing fasciitis. No findings of abscess. IMPRESSION: A 28-year-old female with IV drug abuse, necrotizing fasciitis, severe cellulitis and myositis infection of the left upper thigh. PLAN: I have come into the operating room and have seen the patient emergently. I discussed the findings with the patient and it is my recommendation the patient undergo emergent irrigation, debridement surgery after each application of wound VAC. This is a limb and life-threatening infection. The patient understands the above. She has given consent and does wish to proceed with surgery as outlined above. We are taking the patient to the operating room emergently for emergency surgery to try to save her leg and her life from the severe infection. MD ANNALISE Yu/rodríguez , 10:15 PM , 10:25 PM
[2018-06-18] MEDS ORDERED: fentaNYL Citrate Inj 100 MCG/2 ML Ampul ONE (22:53)
--- NOTE | 2018-06-19 00:02 | MP ---
cc: Bryan Mcknight MD DATE OF OPERATION: 06/18/2018 PREOPERATIVE DIAGNOSIS: Necrotizing fasciitis infection of left thigh. POSTOPERATIVE DIAGNOSIS: Necrotizing fasciitis infection of left thigh. PROCEDURE: Incision, drainage, irrigation and debridement of necrotizing fasciitis infection, left thigh, 25 cm to include excisional debridement of skin, subcutaneous tissue, muscle, tendon fascia and exploration of the neurovascular bundle. SURGEON: Bryan Mcknight MD CYLINDER BLOCK HOLE RELINER: LITZY Flaherty. ANESTHESIA: General. ESTIMATED BLOOD LOSS: 100 mL. COMPLICATIONS: None. JUSTIFICATION: The patient is a 28-year-old female with IV drug abuse. She has been shooting heroin and Suboxone and has developed a severe infection of the left thigh with presentation upon admission to the emergency room with tachycardia and sepsis. MRI confirmed the above-named findings. Orthopedic surgery was consulted and I came in to see the patient emergently in the middle of the night, taking the patient to the operating room emergently for an incision, drainage, irrigation and debridement of this limb and life-threatening infection. PROCEDURE IN DETAIL: Written consent was obtained. The patient was identified by name, taken to the operating room and placed supine on the operating room table. General anesthesia was administered to the patient. She has received IV antibiotic therapy from the emergency room and within the hospital. She had the left lower extremity prepped and draped using isopropyl alcohol followed by a 2-stage Betadine prep solution. After a timeout was performed, a longitudinal incision was made over the anterior aspect of the left thigh, approximately 25 cm in length. There was evidence of a small abscess pocket superficially, which was incised, debrided and cultured. A deep debridement was performed to include exploration of the fascia. There was some evidence of necrotic muscle, which was debrided as well as fascia. The infection appeared to follow the neurovascular bundle, to include the femoral artery, femoral vein and femoral nerve. I did consult the vascular surgeon chemical economist to come in and assist me as potentially needed. Once a complete excisional debridement was performed, I performed an irrigation with 9 liters of sterile saline pulse with antibiotic-impregnated solution. The vascular surgeon did come and evaluate the patient in the operating room, but at this stage, my portion of the procedure was done with no intraoperative vascular complications noted. At this point, the incision was closed with 3-0 nylon suture. Sterile dressing was applied. The patient tolerated the procedure well with no intraoperative complications noted. MD ANNALISE Yu/chang , 11:14 PM , 11:20 PM
[2018-06-19] MEDS: Piperacil/Tazo 3.375 GM Premix 50 ML IV.SIG SCH ×5 (00:47→23:47)
[2018-06-19] MEDS: Ketorolac Inj 30 MG/ML (IVP) Vial IV.PUSH PRN ×4 (00:53→20:06)
[2018-06-19] MEDS: Methadone 10 MG Tablet PO SCH ×3 (01:50→23:14)
[2018-06-19] MEDS: Senna/Docusate Sodium 8.6/50 MG Tablet PO SCH ×3 (01:53→23:14)
[2018-06-19] MEDS ORDERED: Vancomycin Inj 1,000 MG in Sodium Chlor 0.9% Inj 250 ML IV.SIG SCH (02:00)
[2018-06-19] MEDS ORDERED: Vancomycin Inj 1,150 MG in Sodium Chlor 0.9% Inj 250 ML IV.SIG SCH (03:00)
[2018-06-19] MEDS: Clindamycin 900 mg/NS Premix 900 MG/50 ML PIGGYBACK IV.SIG SCH ×3 (06:42→23:46)
[2018-06-19] MEDS: Rivaroxaban 10 MG Tablet PO SCH (08:00)
--- NOTE | 2018-06-19 09:38 | P.PN ---
Subjective Interval history: Follow up for sepsis left thigh necrotizing fascitis/cellulitis/myositis, active IVDU. The patient is seen sitting upright in bed. She reports diffuse pain throughout her left thigh with radiation down the entire leg. Afebrile overnight. Denies any chest pain or shortness of breath. Denies any other medical complaints at this time. Physical Exam Vital signs: Vital Signs 06/18/18 09:49 06/18/18 10:07 06/18/18 13:26 Temperature 100.2 F H 99.3 F Pulse Rate 114 H 107 H Respiratory Rate 15 17 Blood Pressure 149/79 H 137/77 Pulse Oximetry 98 100 06/18/18 15:37 06/18/18 16:00 06/18/18 18:24 Temperature 99.6 F 100.8 F H Pulse Rate 76 105 H Respiratory Rate 17 20 Blood Pressure 105/64 114/65 Pulse Oximetry 98 100 06/18/18 20:00 06/18/18 21:00 06/18/18 23:25 Temperature 98.2 F 97.7 F Pulse Rate 109 H 132 H Respiratory Rate 19 15 Blood Pressure 104/55 L 108/71 Pulse Oximetry 99 98 100 06/18/18 23:30 06/18/18 23:35 06/18/18 23:45 Temperature 98.2 F Pulse Rate 101 H 132 H 99 H Respiratory Rate 15 15 15 Blood Pressure 115/70 138/71 Pulse Oximetry 100 100 06/18/18 23:55 06/19/18 04:00 06/19/18 04:15 Temperature 98.1 F Pulse Rate 85 90 Respiratory Rate 15 20 Blood Pressure 98/54 L Pulse Oximetry 98 06/19/18 07:00 06/19/18 08:00 06/19/18 09:00 Temperature 97.7 F Pulse Rate 86 96 H Respiratory Rate 12 20 Blood Pressure 92/55 L Pulse Oximetry 98 Intake & Output 06/18/18 06/19/18 06/19/18 18:59 06:59 18:59 Intake Total 2552.5 / 2552.5 1100 / 1100 311.5 / 311.5 Output Total Balance 2551.5 / 2551.5 1075 / 1075 311.5 / 311.5 Weight 56.699 kg 56.6 kg Intake: IV 2312.5 / 2312.5 500 / 500 311.5 / 311.5 Cleocin 900 mg/NS Premix 900 mg 50 / 50 In 50 ml @ 100 mls/hr IV.SIG Q8H [facility] Rx#:[id number] LR 1000 mL Inj 1,000 ML @ 125 400 / 400 mls/hr IV.SIG .Q8H [facility] Rx#: [id number] Zosyn 3.375 GM Premix 50 ML @ 50 / 50 100 / 100 100 mls/hr IV.SIG Q6H [facility] Rx#: [id number] NS Inj 1,000 ML @ Wide Open IV. 1999 SIG BOLUS [facility] Rx#:[id number] Vancomycin Inj 1,150 MG In NS 262.5 / 262.5 261.5 / 261.5 Inj 250 ML @ 250 mls/hr IV.SIG Q12H [facility] Rx#:[id number] Oral 240 / 240 Anesthesia Amount 600 / 600 Output: Urine Estimated Blood Loss 25 / 25 Other: # Voids 2 Date of Last Bowel Movement 06/16/18 06/17/18 Narrative: GENERAL: Well-nourished, well-developed young female patient in [facility]. SKIN: Warm and dry. No rash. HEENT: Normocephalic. Atraumatic. Pupils equal and round. Mucous membranes pink and moist. CARDIOVASCULAR: Regular rate and rhythm. No murmur appreciated. RESPIRATORY: No accessory muscle use. Clear to auscultation. Breath sounds equal bilaterally. GASTROINTESTINAL: Abdomen soft, non-tender, nondistended. Normoactive bowel sounds x4. MUSCULOSKELETAL: No obvious deformities. Extremities without clubbing, cyanosis , or edema. Left proximal anterior thigh with large surgical wound with sutures , minimal bloody drainage on dressing, feels warm, with minimal surrounding erythema. NEUROLOGICAL: Awake and alert. No obvious cranial nerve deficits. Motor grossly within normal limits. Moving all extremities spontaneously. Normal speech. PSYCHIATRIC: Appropriate mood and affect; insight and judgment normal. Results - Labs CBC & Chem 7: 06/19/18 10:10 06/19/18 10:10 Laboratory Results - last 24 hr 06/18/18 06/18/18 06/18/18 12:04 12:04 12:04 WBC 21.4 H RBC 4.12 Hgb 11.3 L Hct 34.1 L MCV 82.8 MCH 27.5 MCHC 33.2 RDW 15.4 Plt Count 332 MPV 7.2 Neut % (Auto) 79.7 H Lymph % (Auto) 11.2 [place] % (Auto) 8.3 H Eos % (Auto) 0.4 Baso % (Auto) 0.4 Neut # (Auto) 17.0 H Lymph # (Auto) 2.4 [place] # (Auto) 1.8 H Eos # (Auto) 0.1 Baso # (Auto) 0.1 WBC Differential . Differential Comment Auto diff final PT 11.6 INR 1.1 APTT 38.9 H Sodium 134 L Potassium 4.0 Chloride 100 Carbon Dioxide 26.6 Anion Gap 7 BUN 9 Creatinine 0.66 Estimated GFR Greater than 89 Random Glucose 106 Lactic Acid Calcium 8.7 Magnesium 1.8 Total Bilirubin 0.3 AST 16 ALT 35 Alkaline Phosphatase 99 Total Protein 8.5 H Albumin 2.7 L Urine Color Urine Clarity Urine pH Ur Specific [place] Urine Protein Urine Glucose (UA) Urine Ketones Urine Occult Blood Urine Nitrate Urine Bilirubin Urine Urobilinogen Ur Leukocyte Esterase Urine RBC Urine WBC Ur Squamous Epith Cells Urine Bacteria Urine Mucus Micro UA Comment Ur Microscopic Review Urine Culture Comments 06/18/18 06/18/18 12:04 15:03 WBC RBC Hgb Hct MCV MCH MCHC RDW Plt Count MPV Neut % (Auto) Lymph % (Auto) [place] % (Auto) Eos % (Auto) Baso % (Auto) Neut # (Auto) Lymph # (Auto) [place] # (Auto) Eos # (Auto) Baso # (Auto) WBC Differential Differential Comment PT INR APTT Sodium Potassium Chloride Carbon Dioxide Anion Gap BUN Creatinine Estimated GFR Random Glucose Lactic Acid 1.2 Calcium Magnesium Total Bilirubin AST ALT Alkaline Phosphatase Total Protein Albumin Urine Color Yellow Urine Clarity Hazy H Urine pH 6.0 Ur Specific [place] 1.020 Urine Protein Negative Urine Glucose (UA) Negative Urine Ketones Negative Urine Occult Blood Negative Urine Nitrate Negative Urine Bilirubin Negative Urine Urobilinogen Less than 2 Ur Leukocyte Esterase Negative Urine RBC 1 Urine WBC 2 Ur Squamous Epith Cells 20 Urine Bacteria Rare H Urine Mucus Few H Micro UA Comment Culture not ind Ur Microscopic Review Not Reportable Urine Culture Comments Culture not ind Microbiology 06/18/18 11:50 Blood - Peripheral Anaerobic Blood Culture - Preliminary gram positive cocci 06/18/18 12:00 Blood - Peripheral Anaerobic Blood Culture - Preliminary gram positive cocci - Imaging Impressions Chest CTA 06/18/18 00:00 CONCLUSION: 1. No pulmonary emboli. 2. Left lower lobe infiltrate with small area of nodularity involving the right upper lobe and small pneumatocele involving the right lower lobe which contains an air-fluid level. Overall these findings suggest infectious etiology. I would suggest a follow-up CT scan to document complete resolution. Femur MRI 06/18/18 00:00 CONCLUSION: Cellulitis/myositis in the upper medial left thigh as above. No findings of an abscess at this time. Chest X-Ray 06/18/18 11:20 CONCLUSION: Left lung presumed infiltrate. Follow-up to resolution recommended - Procedures 06/18/18by Dr. Mcknight: Incision, drainage, irrigation and debridement of necrotizing fasciitis infection, left thigh, 25 cm to include excisional debridement of skin, subcutaneous tissue, muscle, tendon fascia and exploration of the neurovascular bundle. Assessment and Plan - Assessment (1) Drug abuse, IV Code(s): F19.10 - Other psychoactive substance abuse, uncomplicated Status: Acute (2) Sepsis Code(s): A41.9 - Sepsis, unspecified organism Status: Acute - Plan 28-year-old white female with a history of anxiety, depression, asthma, active IV polysubstance abuse with recent IV Dilaudid/Suboxone use just prior to coming to the emergency room with: Sepsis with L Thigh necrotizing fascitis/cellulitis/myositis with Bacteremia: acute. Meets sepsis criteria with +leukocytosis 21K, tachycardia HR 132, fever Tmax 100.8, source left leg infection, also suspect bacteremia due to active IV drug use -Continue on broad-spectrum IV antibiotics with vancomycin and Zosyn. -L Femur MRI reviewed, shows extensive Cellulitis/myositis in the upper medial left thigh -Blood cultures collected, preliminary with group A strep and gram positive cocci -Checked 2d Echo, unremarkable for any vegetations or endocarditis -Consulted ID, appreciate recommendations -Orthopedics consulted, performed I&D of necrotizing fascitis L thigh, 25cm excisional debridement of skin/subcutaneous tissue/muscle/fascia -Pain control with IV toradol Chest pain: atypical -Rule out underlying septic emboli -chest x-ray revealed infiltrate -CTA pulmonary showed No PE; LLL infiltrate with small area of nodularity involving the RUL and small pneumatocele involving the RLL which contains an air -fluid level. Overall these findings suggest infectious etiology -ID on board as above -Continue broad spectrum antibiotics Active IV polysubstance abuse -cessation counseling provided. -case management to provide resources for [facility] and drug rehab upon discharge -monitor for withdrawal Chronic pain syndrome -methadone 10mg bid has been initiated by admitting physician -Toradol IV for breakthrough pain. DVT prophylaxispatient refusing Lovenox, initiated Xarelto. (2) Sepsis Qualifiers: Sepsis type: sepsis due to unspecified organism Qualified Code(s): A41.9 - Sepsis, unspecified organism
[2018-06-19 10:53] LABS: Baso % (Auto) 0.1 % (0.0-2.0); Hematocrit 31.4 % (35.0-46.0); Hemoglobin 10.3 gm/dL (11.6-15.3); Lymph # (Auto) 1.7 th/mm3 (1.0-4.8); Lymph % (Auto) 9.6 % (9.0-44.0); Mean Corpuscular HGB Conc 32.8 % (32.0-36.0); Mean Corpuscular Hemoglobin 27.2 pg (27.0-34.0); Mean Corpuscular Volume 82.8 fL (80.0-100.0); Mean Platelet Volume 7.9 fL (7.0-11.0); Mono # (Auto) 0.9 th/mm3 (0.0-0.9); Mono % (Auto) 5.3 % (0.0-8.0); Neut # (Auto) 14.7 th/mm3 (1.8-7.7); Platelet Count 286 th/mm3 (150-450); Red Blood Count 3.79 mil/mm3 (4.00-5.30); Red Cell Distribution Width 15.6 % (11.6-17.2); White Blood Count 17.3 th/mm3 (4.0-11.0)
[2018-06-19 11:29] LABS: Anion Gap 6 meq/L (5-15); Blood Urea Nitrogen 7 mg/dL (7-18); Calcium 8.5 mg/dL (8.5-10.1); Carbon Dioxide 29.1 meq/L (21.0-32.0); Chloride 105 meq/L (98-107); Glomerular Filtration Rate Greater Than 89 mL/min (>89); Glucose,Random 163 mg/dL (74-106); Sodium 140 meq/L (136-145)
--- NOTE | 2018-06-19 13:00 | P.PNOP ---
Subjective Interval history: L hip sore/painful. Physical Exam Vital signs: Vital Signs 06/18/18 13:26 06/18/18 15:37 06/18/18 16:00 Temperature 99.3 F 99.6 F Pulse Rate 76 105 H Respiratory Rate 17 20 Blood Pressure 105/64 114/65 Pulse Oximetry 98 100 06/18/18 18:24 06/18/18 20:00 06/18/18 21:00 Temperature 100.8 F H 98.2 F Pulse Rate 109 H Respiratory Rate 19 Blood Pressure 104/55 L Pulse Oximetry 99 98 06/18/18 23:25 06/18/18 23:30 06/18/18 23:35 Temperature 97.7 F Pulse Rate 132 H 101 H 132 H Respiratory Rate 15 15 15 Blood Pressure 108/71 115/70 Pulse Oximetry 100 100 06/18/18 23:45 06/18/18 23:55 06/19/18 04:00 Temperature 98.2 F 98.1 F Pulse Rate 99 H 85 Respiratory Rate 15 15 20 Blood Pressure 138/71 98/54 L Pulse Oximetry 100 98 06/19/18 04:15 06/19/18 07:00 06/19/18 08:00 Temperature 97.7 F Pulse Rate 90 86 Respiratory Rate 12 20 Blood Pressure 92/55 L Pulse Oximetry 98 06/19/18 09:00 06/19/18 11:07 06/19/18 12:00 Temperature 98.2 F Pulse Rate 96 H 87 Respiratory Rate 12 20 Blood Pressure 93/54 L Pulse Oximetry 98 06/19/18 12:41 Temperature Pulse Rate 92 H Respiratory Rate Blood Pressure Pulse Oximetry Intake & Output 06/18/18 06/19/18 06/19/18 18:59 06:59 18:59 Intake Total 2552.5 / 2552.5 1100 / 1100 361.5 / 361.5 Output Total Balance 2551.5 / 2551.5 1075 / 1075 361.5 / 361.5 Weight 56.699 kg 56.6 kg Intake: IV 2312.5 / 2312.5 500 / 500 361.5 / 361.5 Cleocin 900 mg/NS Premix 900 mg 50 / 50 In 50 ml @ 100 mls/hr IV.SIG Q8H [facility] Rx#:[id number] LR 1000 mL Inj 1,000 ML @ 125 400 / 400 mls/hr IV.SIG .Q8H [facility] Rx#: [id number] Zosyn 3.375 GM Premix 50 ML @ 50 / 50 100 / 100 50 / 50 100 mls/hr IV.SIG Q6H [facility] Rx#: [id number] NS Inj 1,000 ML @ Wide Open IV. 1999 SIG BOLUS [facility] Rx#:[id number] Vancomycin Inj 1,150 MG In NS 262.5 / 262.5 261.5 / 261.5 Inj 250 ML @ 250 mls/hr IV.SIG Q12H [facility] Rx#:[id number] Oral 240 / 240 Anesthesia Amount 600 / 600 Output: Urine Estimated Blood Loss Other: # Voids 2 Date of Last Bowel Movement 06/16/18 06/17/18 Narrative: L hip incision with mild bloody drainage. soft neg homans nvi Results - Labs CBC & Chem 7: 06/19/18 10:10 06/19/18 10:10 Laboratory Results - last 24 hr 06/18/18 06/19/18 06/19/18 15:03 10:10 10:10 WBC 17.3 H RBC 3.79 L Hgb 10.3 L Hct 31.4 L MCV 82.8 MCH 27.2 MCHC 32.8 RDW 15.6 Plt Count 286 MPV 7.9 Neut % (Auto) 85.0 H Lymph % (Auto) 9.6 [place] % (Auto) 5.3 Eos % (Auto) 0.0 Baso % (Auto) 0.1 Neut # (Auto) 14.7 H Lymph # (Auto) 1.7 [place] # (Auto) 0.9 Eos # (Auto) 0.0 Baso # (Auto) 0.0 WBC Differential . Differential Comment Auto diff final Sodium 140 Potassium 4.0 Chloride 105 Carbon Dioxide 29.1 Anion Gap 6 BUN 7 Creatinine 0.70 Estimated GFR Greater than 89 Random Glucose 163 H Calcium 8.5 Urine Color Yellow Urine Clarity Hazy H Urine pH 6.0 Ur Specific [place] 1.020 Urine Protein Negative Urine Glucose (UA) Negative Urine Ketones Negative Urine Occult Blood Negative Urine Nitrate Negative Urine Bilirubin Negative Urine Urobilinogen Less than 2 Ur Leukocyte Esterase Negative Urine RBC 1 Urine WBC 2 Ur Squamous Epith Cells 20 Urine Bacteria Rare H Urine Mucus Few H Micro UA Comment Culture not ind Ur Microscopic Review Not Reportable Urine Culture Comments Culture not ind Microbiology 06/18/18 11:50 Blood - Peripheral Aerobic Blood Culture - Preliminary No growth in 1 day 06/18/18 11:50 Blood - Peripheral Anaerobic Blood Culture - Preliminary Group A beta Strep 06/18/18 12:00 Blood - Peripheral Aerobic Blood Culture - Preliminary No growth in 1 day 06/18/18 12:00 Blood - Peripheral Anaerobic Blood Culture - Preliminary gram positive cocci 06/18/18 22:45 Wound - Thigh Fungal Smear - Final No fungal elements seen 06/18/18 22:43 Wound - Thigh Fungal Smear - Final Rare budding yeast 06/18/18 22:45 Wound - Thigh Gram Stain - Final 06/18/18 22:43 Wound - Thigh Gram Stain - Final - Imaging Impressions Chest CTA 06/18/18 00:00 CONCLUSION: 1. No pulmonary emboli. 2. Left lower lobe infiltrate with small area of nodularity involving the right upper lobe and small pneumatocele involving the right lower lobe which contains an air-fluid level. Overall these findings suggest infectious etiology. I would suggest a follow-up CT scan to document complete resolution. Femur MRI 06/18/18 00:00 CONCLUSION: Cellulitis/myositis in the upper medial left thigh as above. No findings of an abscess at this time. Assessment and Plan - Ortho Post Op Day # 1 - Assessment and Plan s/p L hip/thigh I&D wbat daily dressing changes IV abx per ID follow cultures
[2018-06-19] MEDS: Vancomycin Inj 1,250 MG in Sodium Chlor 0.9% Inj 250 ML IV.SIG SCH (14:59)
--- NOTE | 2018-06-19 19:57 | P.PNADD ---
Addendum to Inpatient Note Additional information: pt seen around 1900 full note to follow
--- NOTE | 2018-06-19 22:34 | P.PNID ---
Subjective Remarks: Yday MR showed myosytis, infammatory involvment of neurovascular bundle , nec fasc was suspected and pt went for emergent debridement muscle necrosis note in [place] She has 2/2 blod clx + for GAS today pain improved markedly vss stable, abebrile Antibiotics: zosyn vanco clindamycin Allergies/Adverse Reactions: Allergies telithromycin [From Ketek] Allergy (Verified 06/18/18 09:52) Hives Objective Vital Signs 06/18/18 23:25 06/18/18 23:30 06/18/18 23:35 Temperature 97.7 F Pulse Rate 132 H 101 H 132 H Respiratory Rate 15 15 15 Blood Pressure 108/71 115/70 Pulse Oximetry 100 100 06/18/18 23:45 06/18/18 23:55 06/19/18 04:00 Temperature 98.2 F 98.1 F Pulse Rate 99 H 85 Respiratory Rate 15 15 20 Blood Pressure 138/71 98/54 L Pulse Oximetry 100 98 06/19/18 04:15 06/19/18 07:00 06/19/18 08:00 Temperature 97.7 F Pulse Rate 90 86 Respiratory Rate 12 20 Blood Pressure 92/55 L Pulse Oximetry 98 06/19/18 09:00 06/19/18 11:07 06/19/18 12:00 Temperature 98.2 F Pulse Rate 96 H 87 Respiratory Rate 12 20 Blood Pressure 93/54 L Pulse Oximetry 98 06/19/18 12:41 06/19/18 15:17 06/19/18 15:33 Temperature 97.6 F Pulse Rate 92 H 90 Respiratory Rate 12 20 Blood Pressure 100/60 Pulse Oximetry 98 06/19/18 17:04 06/19/18 20:00 Temperature 98.5 F Pulse Rate 90 Respiratory Rate 12 20 Blood Pressure 105/56 L Pulse Oximetry 97 Intake & Output 06/19/18 06/19/18 06/20/18 06:59 18:59 06:59 Intake Total 1100 / 1100 964.0 / 964.0 Output Total Balance 1075 / 1075 964.0 / 964.0 Weight 56.6 kg Intake: IV 500 / 500 724.0 / 724.0 Cleocin 900 mg/NS Premix 900 mg 100 / 100 In 50 ml @ 100 mls/hr IV.SIG Q8H [facility] Rx#:[id number] LR 1000 mL Inj 1,000 ML @ 125 400 / 400 mls/hr IV.SIG .Q8H [facility] Rx#: [id number] Zosyn 3.375 GM Premix 50 ML @ 100 / 100 100 / 100 100 mls/hr IV.SIG Q6H [facility] Rx#: [id number] Vancomycin Inj 1,250 MG In NS 524.0 / 524.0 Inj 250 ML @ 250 mls/hr IV.SIG Q12H [facility] Rx#:[id number] Oral 240 / 240 Anesthesia Amount 600 / 600 Output: Estimated Blood Loss Other: # Voids 2 Date of Last Bowel Movement 06/17/18 06/18/18 11:50 Blood - Peripheral Aerobic Blood Culture - Preliminary gram positive cocci 06/18/18 11:50 Blood - Peripheral Anaerobic Blood Culture - Preliminary Group A beta Strep 06/18/18 12:00 Blood - Peripheral Aerobic Blood Culture - Preliminary No growth in 1 day 06/18/18 12:00 Blood - Peripheral Anaerobic Blood Culture - Preliminary gram positive cocci 06/18/18 22:45 Wound - Thigh Fungal Smear - Final No fungal elements seen 06/18/18 22:45 Wound - Thigh Fungal Culture - Pending 06/18/18 22:43 Wound - Thigh Fungal Smear - Final Rare budding yeast 06/18/18 22:43 Wound - Thigh Fungal Culture - Pending 06/18/18 22:45 Wound - Thigh Gram Stain - Final 06/18/18 22:45 Wound - Thigh Wound Culture - Pending 06/18/18 22:43 Wound - Thigh Gram Stain - Final 06/18/18 22:43 Wound - Thigh Wound Culture - Pending 06/18/18 22:45 Wound - Thigh Acid Fast Bacilli Smear - Pending 06/18/18 22:45 Wound - Thigh Mycobacterial Culture - Pending 06/18/18 22:43 Wound - Thigh Acid Fast Bacilli Smear - Pending 06/18/18 22:43 Wound - Thigh Mycobacterial Culture - Pending Lab - Hematology Results 06/18/18 06/19/18 12:04 10:10 WBC 21.4 H 17.3 H RBC 4.12 3.79 L Hgb 11.3 L 10.3 L Hct 34.1 L 31.4 L MCV 82.8 82.8 MCH 27.5 27.2 MCHC 33.2 32.8 RDW 15.4 15.6 Plt Count 332 286 MPV 7.2 7.9 Neut % (Auto) 79.7 H 85.0 H Lymph % (Auto) 11.2 9.6 [place] % (Auto) 8.3 H 5.3 Eos % (Auto) 0.4 0.0 Baso % (Auto) 0.4 0.1 Neut # (Auto) 17.0 H 14.7 H Lymph # (Auto) 2.4 1.7 [place] # (Auto) 1.8 H 0.9 Eos # (Auto) 0.1 0.0 Baso # (Auto) 0.1 0.0 WBC Differential . . Differential Comment Auto diff final Auto diff final Lab - Chemistry Results 06/18/18 06/18/18 06/19/18 12:04 12:04 10:10 Sodium 134 L 140 Potassium 4.0 4.0 Chloride 100 105 Carbon Dioxide 26.6 29.1 Anion Gap 7 6 BUN 9 7 Creatinine 0.66 0.70 Estimated GFR Greater than 89 Greater than 89 Random Glucose 106 163 H Lactic Acid 1.2 Calcium 8.7 8.5 Magnesium 1.8 Total Bilirubin 0.3 AST 16 ALT 35 Alkaline Phosphatase 99 Total Protein 8.5 H Albumin 2.7 L Imaging: ITS Impressions Chest CTA 06/18/18 00:00 CONCLUSION: 1. No pulmonary emboli. 2. Left lower lobe infiltrate with small area of nodularity involving the right upper lobe and small pneumatocele involving the right lower lobe which contains an air-fluid level. Overall these findings suggest infectious etiology. I would suggest a follow-up CT scan to document complete resolution. Femur MRI 06/18/18 00:00 CONCLUSION: Cellulitis/myositis in the upper medial left thigh as above. No findings of an abscess at this time. Chest X-Ray 06/18/18 11:20 CONCLUSION: Left lung presumed infiltrate. Follow-up to resolution recommended Physical Exam: GENERAL: NAD SKIN: Warm and dry. Multiple crusted lesions HEAD: Atraumatic. Normocephalic. EYES: Pupils equal and round. No scleral icterus. No injection or drainage. ENT: No nasal bleeding or discharge. Mucous membranes pink and moist. NECK: Trachea midline. No JVD. CARDIOVASCULAR: Regular rate and rhythm. RESPIRATORY: No accessory muscle use. Clear to auscultation. Breath sounds equal bilaterally. GASTROINTESTINAL: Abdomen soft, non-tender, nondistended. Hepatic and splenic margins not palpable. MUSCULOSKELETAL: Extremities without clubbing, cyanosis, or edema. L thigh much softer, less edematous dressin gin lace over anterior thifh NEUROLOGICAL: Awake and alert. Non focal PSYCHIATRIC: Appropriate mood and affect; insight and judgment normal. Assessment and Plan - Plan Sepsis, GAS form L thigh nec fasc sp emergent debridement LLE. Estensive myositis, cellulitis nec fasc L thigh TV ndocarditis suspected, 2D echo nl Pulmonary lesion susp for septic emboli cont current abx ortho ff for the need for further debridement fu P blood clx untill final
[2018-06-20] MEDS: Methadone 10 MG Tablet PO SCH ×3 (00:15→21:12)
[2018-06-20] MEDS: Vancomycin Inj 1,250 MG in Sodium Chlor 0.9% Inj 250 ML IV.SIG SCH ×2 (03:06→17:28)
[2018-06-20] MEDS: Piperacil/Tazo 3.375 GM Premix 50 ML IV.SIG SCH ×3 (05:27→18:43)
[2018-06-20] MEDS: Clindamycin 900 mg/NS Premix 900 MG/50 ML PIGGYBACK IV.SIG SCH ×2 (06:08→16:12)
--- NOTE | 2018-06-20 08:13 | P.PNOP ---
Subjective Interval history: soreness thigh Physical Exam Vital signs: Vital Signs 06/19/18 09:00 06/19/18 11:07 06/19/18 12:00 Temperature 98.2 F Pulse Rate 96 H 87 Respiratory Rate 12 20 Blood Pressure 93/54 L Pulse Oximetry 98 06/19/18 12:41 06/19/18 15:17 06/19/18 15:33 Temperature 97.6 F Pulse Rate 92 H 90 Respiratory Rate 12 20 Blood Pressure 100/60 Pulse Oximetry 98 06/19/18 17:04 06/19/18 20:00 06/20/18 00:00 Temperature 98.5 F 98.3 F Pulse Rate 90 75 Respiratory Rate 12 20 18 Blood Pressure 105/56 L 107/55 L Pulse Oximetry 97 96 06/20/18 04:00 Temperature 97.9 F Pulse Rate 77 Respiratory Rate 20 Blood Pressure 104/58 L Pulse Oximetry 98 Intake & Output 06/19/18 06/20/18 06/20/18 18:59 06:59 18:59 Intake Total 964.0 / 964.0 462.5 / 462.5 Balance 964.0 / 964.0 462.5 / 462.5 Intake: IV 724.0 / 724.0 462.5 / 462.5 Cleocin 900 mg/NS Premix 900 mg 100 / 100 100 / 100 In 50 ml @ 100 mls/hr IV.SIG Q8H [facility] Rx#:[id number] Zosyn 3.375 GM Premix 50 ML @ 100 / 100 100 / 100 100 mls/hr IV.SIG Q6H [facility] Rx#: [id number] Vancomycin Inj 1,250 MG In NS 524.0 / 524.0 262.5 / 262.5 Inj 250 ML @ 250 mls/hr IV.SIG Q12H [facility] Rx#:[id number] Oral 240 / 240 Other: # Voids 2 Date of Last Bowel Movement 06/17/18 Narrative: in bed, nad dressing changed incision no erythema, no drainage, soft neg homans nvi Results - Labs CBC & Chem 7: 06/19/18 10:10 06/19/18 10:10 Laboratory Results - last 24 hr 06/19/18 06/19/18 10:10 10:10 WBC 17.3 H RBC 3.79 L Hgb 10.3 L Hct 31.4 L MCV 82.8 MCH 27.2 MCHC 32.8 RDW 15.6 Plt Count 286 MPV 7.9 Neut % (Auto) 85.0 H Lymph % (Auto) 9.6 [place] % (Auto) 5.3 Eos % (Auto) 0.0 Baso % (Auto) 0.1 Neut # (Auto) 14.7 H Lymph # (Auto) 1.7 [place] # (Auto) 0.9 Eos # (Auto) 0.0 Baso # (Auto) 0.0 WBC Differential . Differential Comment Auto diff final Sodium 140 Potassium 4.0 Chloride 105 Carbon Dioxide 29.1 Anion Gap 6 BUN 7 Creatinine 0.70 Estimated GFR Greater than 89 Random Glucose 163 H Calcium 8.5 Microbiology 06/18/18 11:50 Blood - Peripheral Aerobic Blood Culture - Preliminary gram positive cocci 06/18/18 11:50 Blood - Peripheral Anaerobic Blood Culture - Preliminary Group A beta Strep 06/18/18 12:00 Blood - Peripheral Aerobic Blood Culture - Preliminary No growth in 1 day 06/18/18 12:00 Blood - Peripheral Anaerobic Blood Culture - Preliminary gram positive cocci 06/18/18 22:45 Wound - Thigh Fungal Smear - Final No fungal elements seen 06/18/18 22:43 Wound - Thigh Fungal Smear - Final Rare budding yeast 06/18/18 22:45 Wound - Thigh Gram Stain - Final 06/18/18 22:43 Wound - Thigh Gram Stain - Final - Procedures 06/18/18by Dr. Mcknight: Incision, drainage, irrigation and debridement of necrotizing fasciitis infection, left thigh, 25 cm to include excisional debridement of skin, subcutaneous tissue, muscle, tendon fascia and exploration of the neurovascular bundle. Assessment and Plan - Ortho Post Op Day # 2 - Assessment and Plan s/p L hip/thigh I&D wbat daily dressing changes - I changed today no erythema, no drainage from incision IV abx per ID follow cultures
[2018-06-20] MEDS: Senna/Docusate Sodium 8.6/50 MG Tablet PO SCH ×2 (08:57→21:12)
[2018-06-20] MEDS: Rivaroxaban 10 MG Tablet PO SCH (08:57)
[2018-06-20] MEDS: Ketorolac Inj 30 MG/ML (IVP) Vial IV.PUSH PRN ×3 (09:01→21:16)
--- NOTE | 2018-06-20 09:53 | P.PN ---
Subjective Interval history: Follow up for sepsis left thigh necrotizing fascitis/cellulitis/myositis, active IVDU. The patient is seen sleeping in her room, easily awakens. She reports continued constant throbbing left leg pain, unchanged compared to yesterday. Denies fevers/chills but does report sweats. She reports an occasional nonproductive cough, denies any chest pain or shortness of breath. Denies any abdominal pain, nausea/vomiting, or diarrhea. She is tolerating oral intake. Denies any other medical complaints at this time. Physical Exam Vital signs: Vital Signs 06/19/18 11:07 06/19/18 12:00 06/19/18 12:41 Temperature 98.2 F Pulse Rate 87 92 H Respiratory Rate 12 20 Blood Pressure 93/54 L Pulse Oximetry 98 06/19/18 15:17 06/19/18 15:33 06/19/18 17:04 Temperature 97.6 F Pulse Rate 90 Respiratory Rate 12 20 12 Blood Pressure 100/60 Pulse Oximetry 98 06/19/18 20:00 06/20/18 00:00 06/20/18 04:00 Temperature 98.5 F 98.3 F 97.9 F Pulse Rate 90 75 77 Respiratory Rate 20 18 20 Blood Pressure 105/56 L 107/55 L 104/58 L Pulse Oximetry 97 96 98 06/20/18 08:00 Temperature 98.1 F Pulse Rate 97 H Respiratory Rate 20 Blood Pressure 107/63 Pulse Oximetry 98 Intake & Output 06/19/18 06/20/18 06/20/18 18:59 06:59 18:59 Intake Total 964.0 / 964.0 462.5 / 462.5 Balance 964.0 / 964.0 462.5 / 462.5 Intake: IV 724.0 / 724.0 462.5 / 462.5 Cleocin 900 mg/NS Premix 900 mg 100 / 100 100 / 100 In 50 ml @ 100 mls/hr IV.SIG Q8H [facility] Rx#:[id number] Zosyn 3.375 GM Premix 50 ML @ 100 / 100 100 / 100 100 mls/hr IV.SIG Q6H [facility] Rx#: [id number] Vancomycin Inj 1,250 MG In NS 524.0 / 524.0 262.5 / 262.5 Inj 250 ML @ 250 mls/hr IV.SIG Q12H [facility] Rx#:[id number] Oral 240 / 240 Other: # Voids 2 Date of Last Bowel Movement 06/17/18 Narrative: GENERAL: Well-nourished, well-developed pleasant young female patient in [facility]. SKIN: Warm and dry. HEENT: Normocephalic. Atraumatic. Mucous membranes pink and moist. CARDIOVASCULAR: Regular rate and rhythm. No murmur appreciated. RESPIRATORY: No accessory muscle use. Clear to auscultation. Breath sounds equal bilaterally. GASTROINTESTINAL: Abdomen soft, non-tender, nondistended. Normoactive bowel sounds x4. MUSCULOSKELETAL: No obvious deformities. Left proximal anterior thigh with large vertical surgical wound with sutures, new dressing CDI, no drainage, feels warm with no significant surrounding erythema. NEUROLOGICAL: Awake and alert. No obvious cranial nerve deficits. Motor grossly within normal limits. Moving all extremities spontaneously. Normal speech. PSYCHIATRIC: Appropriate mood and affect; insight and judgment normal. Results - Labs CBC & Chem 7: 06/19/18 10:10 06/19/18 10:10 Laboratory Results - last 24 hr 06/19/18 06/19/18 10:10 10:10 WBC 17.3 H RBC 3.79 L Hgb 10.3 L Hct 31.4 L MCV 82.8 MCH 27.2 MCHC 32.8 RDW 15.6 Plt Count 286 MPV 7.9 Neut % (Auto) 85.0 H Lymph % (Auto) 9.6 [place] % (Auto) 5.3 Eos % (Auto) 0.0 Baso % (Auto) 0.1 Neut # (Auto) 14.7 H Lymph # (Auto) 1.7 [place] # (Auto) 0.9 Eos # (Auto) 0.0 Baso # (Auto) 0.0 WBC Differential . Differential Comment Auto diff final Sodium 140 Potassium 4.0 Chloride 105 Carbon Dioxide 29.1 Anion Gap 6 BUN 7 Creatinine 0.70 Estimated GFR Greater than 89 Random Glucose 163 H Calcium 8.5 Microbiology 06/18/18 11:50 Blood - Peripheral Aerobic Blood Culture - Preliminary gram positive cocci 06/18/18 11:50 Blood - Peripheral Anaerobic Blood Culture - Preliminary Group A beta Strep 06/18/18 12:00 Blood - Peripheral Aerobic Blood Culture - Preliminary No growth in 1 day 06/18/18 12:00 Blood - Peripheral Anaerobic Blood Culture - Preliminary gram positive cocci 06/18/18 22:45 Wound - Thigh Fungal Smear - Final No fungal elements seen 06/18/18 22:43 Wound - Thigh Fungal Smear - Final Rare budding yeast 06/18/18 22:45 Wound - Thigh Gram Stain - Final 06/18/18 22:43 Wound - Thigh Gram Stain - Final - Imaging Chest CTA 06/18/18 00:00 CONCLUSION: 1. No pulmonary emboli. 2. Left lower lobe infiltrate with small area of nodularity involving the right upper lobe and small pneumatocele involving the right lower lobe which contains an air-fluid level. Overall these findings suggest infectious etiology. I would suggest a follow-up CT scan to document complete resolution. Femur MRI 06/18/18 00:00 CONCLUSION: Cellulitis/myositis in the upper medial left thigh as above. No findings of an abscess at this time. Chest X-Ray 06/18/18 11:20 CONCLUSION: Left lung presumed infiltrate. Follow-up to resolution recommended - Procedures 06/18/18by Dr. Mcknight: Incision, drainage, irrigation and debridement of necrotizing fasciitis infection, left thigh, 25 cm to include excisional debridement of skin, subcutaneous tissue, muscle, tendon fascia and exploration of the neurovascular bundle. Assessment and Plan - Assessment (1) Drug abuse, IV Code(s): F19.10 - Other psychoactive substance abuse, uncomplicated Status: Acute (2) Sepsis Code(s): A41.9 - Sepsis, unspecified organism Status: Acute - Plan 28-year-old white female with a history of anxiety, depression, asthma, active IV polysubstance abuse with recent IV Dilaudid/Suboxone use just prior to coming to the emergency room with: Sepsis with L Thigh necrotizing fascitis/cellulitis/myositis with Bacteremia: acute. Meets sepsis criteria with +leukocytosis 21K, tachycardia HR 132, fever Tmax 100.8, source left leg infection, also suspect bacteremia due to active IV drug use -Continue on broad-spectrum IV antibiotics with vancomycin and Zosyn. -L Femur MRI reviewed, shows extensive Cellulitis/myositis in the upper medial left thigh -Blood cultures collected, preliminary with group A strep and gram positive cocci -2d Echo unremarkable for any vegetations or endocarditis -Consulted ID, appreciate recommendations -Orthopedics consulted, performed I&D of necrotizing fascitis L thigh, 25cm excisional debridement of skin/subcutaneous tissue/muscle/fascia -Wound cultures collect in OR pending -Pain control with IV toradol Suspected septic pulmonary emboli/infiltrate: CTA pulmonary showed No PE; LLL infiltrate with small area of nodularity involving the RUL and small pneumatocele involving the RLL which contains an air-fluid level. Overall these findings suggest infectious etiology -chest x-ray revealed infiltrate -ID on board as above -Continue broad spectrum antibiotics -patient is stable on room air -Robitussin prn cough Active IV polysubstance abuse -cessation counseling provided. -case management to provide resources for [facility] and drug rehab upon discharge -monitor for withdrawal Chronic pain syndrome -methadone 10mg bid has been initiated by admitting physician -Toradol IV for breakthrough pain. DVT prophylaxispatient refusing Lovenox, initiated Xarelto. Discharge Planning: Discharge pending further clinical improvement and clearance from ID and ortho. (2) Sepsis Qualifiers: Sepsis type: sepsis due to unspecified organism Qualified Code(s): A41.9 - Sepsis, unspecified organism
[2018-06-20] MEDS ORDERED: guaiFENesin/Dextromethorphan 200 MG/20 MG 10 ML UDC PO PRN (12:00)
[2018-06-20] MEDS ORDERED: Pharmacy Ordered Lab Info OTHER ONE (14:45)
[2018-06-20] MEDS: Acetaminophen 325 MG Tablet PO PRN (18:42)
--- NOTE | 2018-06-20 19:56 | P.PNID ---
Subjective Remarks: pt co on pain, numbness and swelling LLE + low grade fever BP stable growing GNB, GAS from wound MRSA, GAS in bl clx Antibiotics: zosyn vanco clindamycin Allergies/Adverse Reactions: Allergies telithromycin [From Ketek] Allergy (Verified 06/18/18 09:52) Hives Objective Vital Signs 06/19/18 20:00 06/20/18 00:00 06/20/18 04:00 Temperature 98.5 F 98.3 F 97.9 F Pulse Rate 90 75 77 Respiratory Rate 20 18 20 Blood Pressure 105/56 L 107/55 L 104/58 L Pulse Oximetry 97 96 98 06/20/18 08:00 06/20/18 08:13 06/20/18 12:00 Temperature 98.1 F 97.7 F Pulse Rate 97 H 80 95 H Respiratory Rate 16 20 Blood Pressure 107/63 99/57 L Pulse Oximetry 98 97 06/20/18 16:00 06/20/18 19:13 Temperature 99.4 F Pulse Rate 87 Respiratory Rate 16 16 Blood Pressure 111/63 Pulse Oximetry 98 Intake & Output 06/20/18 06/20/18 06/21/18 06:59 18:59 06:59 Intake Total 462.5 / 462.5 50 / 50 312.5 / 312.5 Balance 462.5 / 462.5 50 / 50 312.5 / 312.5 Intake: IV 462.5 / 462.5 50 / 50 312.5 / 312.5 Cleocin 900 mg/NS Premix 900 mg 100 / 100 50 / 50 In 50 ml @ 100 mls/hr IV.SIG Q8H [facility] Rx#:[id number] Zosyn 3.375 GM Premix 50 ML @ 100 / 100 50 / 50 100 mls/hr IV.SIG Q6H [facility] Rx#: [id number] Vancomycin Inj 1,250 MG In NS 262.5 / 262.5 0 / 0 262.5 / 262.5 Inj 250 ML @ 250 mls/hr IV.SIG Q12H [facility] Rx#:[id number] Other: # Voids 2 Date of Last Bowel Movement 06/17/18 06/18/18 22:43 Wound - Thigh Gram Stain - Final 06/18/18 22:43 Wound - Thigh Wound Culture - Preliminary gram negative rods 06/18/18 22:45 Wound - Thigh Gram Stain - Final 06/18/18 22:45 Wound - Thigh Wound Culture - Preliminary Group A beta Strep 06/18/18 22:43 Wound - Thigh Fungal Smear - Final Rare budding yeast 06/18/18 22:43 Wound - Thigh Fungal Culture - Pending 06/18/18 22:43 Wound - Thigh Acid Fast Bacilli Smear - Final No acid fast bacilli seen 06/18/18 22:43 Wound - Thigh Mycobacterial Culture - Pending 06/18/18 22:45 Wound - Thigh Acid Fast Bacilli Smear - Final No acid fast bacilli seen 06/18/18 22:45 Wound - Thigh Mycobacterial Culture - Pending 06/18/18 11:50 Blood - Peripheral Aerobic Blood Culture - Final S. aureus MRSA 06/18/18 11:50 Blood - Peripheral Anaerobic Blood Culture - Preliminary Group A beta Strep S. aureus MRSA 06/18/18 12:00 Blood - Peripheral Aerobic Blood Culture - Preliminary No growth in 2 days 06/18/18 12:00 Blood - Peripheral Anaerobic Blood Culture - Preliminary S. aureus MRSA 06/18/18 22:45 Wound - Thigh Fungal Smear - Final No fungal elements seen 06/18/18 22:45 Wound - Thigh Fungal Culture - Pending Lab - Hematology Results 06/19/18 10:10 WBC 17.3 H RBC 3.79 L Hgb 10.3 L Hct 31.4 L MCV 82.8 MCH 27.2 MCHC 32.8 RDW 15.6 Plt Count 286 MPV 7.9 Neut % (Auto) 85.0 H Lymph % (Auto) 9.6 [place] % (Auto) 5.3 Eos % (Auto) 0.0 Baso % (Auto) 0.1 Neut # (Auto) 14.7 H Lymph # (Auto) 1.7 [place] # (Auto) 0.9 Eos # (Auto) 0.0 Baso # (Auto) 0.0 WBC Differential . Differential Comment Auto diff final Lab - Chemistry Results 06/19/18 10:10 Sodium 140 Potassium 4.0 Chloride 105 Carbon Dioxide 29.1 Anion Gap 6 BUN 7 Creatinine 0.70 Estimated GFR Greater than 89 Random Glucose 163 H Calcium 8.5 Imaging: ITS Impressions Chest CTA 06/18/18 00:00 CONCLUSION: 1. No pulmonary emboli. 2. Left lower lobe infiltrate with small area of nodularity involving the right upper lobe and small pneumatocele involving the right lower lobe which contains an air-fluid level. Overall these findings suggest infectious etiology. I would suggest a follow-up CT scan to document complete resolution. Femur MRI 06/18/18 00:00 CONCLUSION: Cellulitis/myositis in the upper medial left thigh as above. No findings of an abscess at this time. Chest X-Ray 06/18/18 11:20 CONCLUSION: Left lung presumed infiltrate. Follow-up to resolution recommended Physical Exam: GENERAL: NAD SKIN: Warm and dry. Multiple crusted lesions HEAD: Atraumatic. Normocephalic. EYES: Pupils equal and round. No scleral icterus. No injection or drainage. ENT: No nasal bleeding or discharge. Mucous membranes pink and moist. NECK: Trachea midline. No JVD. CARDIOVASCULAR: Regular rate and rhythm. RESPIRATORY: No accessory muscle use. Clear to auscultation. Breath sounds equal bilaterally. GASTROINTESTINAL: Abdomen soft, non-tender, nondistended. Hepatic and splenic margins not palpable. MUSCULOSKELETAL: Extremities without clubbing, cyanosis, or edema. L thigh much softer, + edematous incision dry, clean + area of mild erythema + decreased light touch sensation to LLE NEUROLOGICAL: Awake and alert. Non focal PSYCHIATRIC: anxious Assessment and Plan - Plan Sepsis, GAS form L thigh nec fasc mixed Gram neg/gram positive infx sp emergent debridement still quite swollen LLE. Estensive myositis, cellulitis nec fasc L thigh TV endocarditis suspected, 2D echo nl Pulmonary lesion susp for septic emboli cont current abx will repeat MR
[2018-06-20] MEDS ORDERED: Gadobutrol PF 7.5 MMOL/7.5 ML Vial (for RAD) IV.SIG ONE (21:01)
--- NOTE | 2018-06-20 21:19 | MR ---
EXAM DATE: 06/20/2018 9:00 PM EDT AGE/SEX: 28 years / Female INDICATIONS: Medial region of left thigh, post I&D procedure yesterday. CLINICAL DATA: This is the patient's initial encounter. Patient reports that signs and symptoms have been present for 2 days and indicates a pain score of 4/10. MEDICAL/SURGICAL HISTORY: Carcinoma, cervical. Rheumatoid arthritis. Prior blood clot. Hyster ectomy. I&D on left thigh. COMPARISON: [facility] [place], THIGH LEFT W & W/O CONTRAST, 06/18/2018. . TECHNIQUE: Multiplanar, multisequence MRI examination was performed without and with 6 ml Gadavist ( gadobutrol) contrast as single exam dose. FINDINGS: Comparison is made to a preoperative examination on June 18. There is some nonloculated fluid in t he subcutaneous tissues of the anterior thigh at the site of the incision characteristic of recent op erative change. Overall there is an increase in subcutaneous edema predominantly in the anterior and medial left thig h compared with June 18. There is also slight increase in edema within the thigh musculature noted especially at the medial aspect of the quadriceps musculature and extending slightly more posteriorl y into the adductor musculature. However there is no loculated fluid within the musculature to sugges t abscess. There is no significant marrow signal abnormality to suggest osteomyelitis. Trace joint fluid at the hip joint similar to prior examination. CONCLUSION: 1. Interval incision in the anterior thigh soft tissues with some nonloculated fluid near the site o f incision. 2. Overall increase in subcutaneous edema in the thigh especially anteriorly and medially with a sli ght increase in muscular edema involving the medial quadriceps musculature and adductor musculature. However no evidence for abscess within the deep thigh and no evidence for osteomyelitis. 3. Postcontrast images reveal some mild enhancement in the areas of cellulitis and myositis and some minimal enhancement around nonloculated fluid at the site of the incision. Electronically signed by: Umberto Walker MD 06/20/2018 9:17 PM EDT
[2018-06-21] MEDS: Clindamycin 900 mg/NS Premix 900 MG/50 ML PIGGYBACK IV.SIG SCH ×4 (00:04→23:48)
[2018-06-21] MEDS: Piperacil/Tazo 3.375 GM Premix 50 ML IV.SIG SCH ×3 (00:46→11:10)
[2018-06-21] MEDS: Vancomycin Inj 1,250 MG in Sodium Chlor 0.9% Inj 250 ML IV.SIG SCH ×3 (01:27→19:54)
[2018-06-21] MEDS: Ketorolac Inj 30 MG/ML (IVP) Vial IV.PUSH PRN ×4 (03:12→20:50)
--- NOTE | 2018-06-21 07:40 | P.PNOP ---
Subjective Interval history: continued pain thigh. Physical Exam Vital signs: Vital Signs 06/20/18 08:00 06/20/18 08:13 06/20/18 12:00 Temperature 98.1 F 97.7 F Pulse Rate 97 H 80 95 H Respiratory Rate 16 20 Blood Pressure 107/63 99/57 L Pulse Oximetry 98 97 06/20/18 16:00 06/20/18 19:13 06/20/18 20:00 Temperature 99.4 F 98.3 F Pulse Rate 87 93 H Respiratory Rate 16 16 20 Blood Pressure 111/63 109/60 Pulse Oximetry 98 98 06/21/18 00:00 06/21/18 04:00 Temperature 98.7 F 98.2 F Pulse Rate 95 H 87 Respiratory Rate 20 20 Blood Pressure 112/66 94/54 L Pulse Oximetry 100 96 Intake & Output 06/20/18 06/21/18 06/21/18 18:59 06:59 18:59 Intake Total 50 / 50 1225.0 / 1225.0 50 / 50 Balance 50 / 50 1225.0 / 1225.0 50 / 50 Intake: IV 50 / 50 775.0 / 775.0 50 / 50 Cleocin 900 mg/NS Premix 900 mg 100 / 100 50 / 50 In 50 ml @ 100 mls/hr IV.SIG Q8H [facility] Rx#:[id number] Zosyn 3.375 GM Premix 50 ML @ 50 / 50 150 / 150 100 mls/hr IV.SIG Q6H [facility] Rx#: [id number] Vancomycin Inj 1,250 MG In NS 0 / 0 525.0 / 525.0 Inj 250 ML @ 250 mls/hr IV.SIG Q8H [facility] Rx#:[id number] Oral 450 / 450 Other: Date of Last Bowel Movement 06/17/18 06/17/18 Narrative: in bed, nad incision - no erythema, scant bloody drainage thigh is soft neg homans nvi Results - Labs CBC & Chem 7: 06/19/18 10:10 06/19/18 10:10 Laboratory Results - last 24 hr 06/20/18 16:34 Vancomycin Trough 6.4 Microbiology 06/18/18 22:43 Wound - Thigh Gram Stain - Final 06/18/18 22:43 Wound - Thigh Wound Culture - Preliminary gram negative rods 06/18/18 22:45 Wound - Thigh Gram Stain - Final 06/18/18 22:45 Wound - Thigh Wound Culture - Preliminary Group A beta Strep 06/18/18 22:43 Wound - Thigh Fungal Smear - Final Rare budding yeast 06/18/18 22:43 Wound - Thigh Acid Fast Bacilli Smear - Final No acid fast bacilli seen 06/18/18 22:45 Wound - Thigh Acid Fast Bacilli Smear - Final No acid fast bacilli seen 06/18/18 11:50 Blood - Peripheral Aerobic Blood Culture - Final S. aureus MRSA 06/18/18 11:50 Blood - Peripheral Anaerobic Blood Culture - Preliminary Group A beta Strep S. aureus MRSA 06/18/18 12:00 Blood - Peripheral Aerobic Blood Culture - Preliminary No growth in 2 days 06/18/18 12:00 Blood - Peripheral Anaerobic Blood Culture - Preliminary S. aureus MRSA - Imaging Impressions Femur MRI 06/20/18 00:00 CONCLUSION: 1. Interval incision in the anterior thigh soft tissues with some nonloculated fluid near the site of incision. 2. Overall increase in subcutaneous edema in the thigh especially anteriorly and medially with a slight increase in muscular edema involving the medial quadriceps musculature and adductor musculature. However no evidence for abscess within the deep thigh and no evidence for osteomyelitis. 3. Postcontrast images reveal some mild enhancement in the areas of cellulitis and myositis and some minimal enhancement around nonloculated fluid at the site of the incision. - Procedures 06/18/18by Dr. Mcknight: Incision, drainage, irrigation and debridement of necrotizing fasciitis infection, left thigh, 25 cm to include excisional debridement of skin, subcutaneous tissue, muscle, tendon fascia and exploration of the neurovascular bundle. Assessment and Plan - Ortho Post Op Day # 3 - Assessment and Plan s/p L hip/thigh I&D POD#3 wbat daily dressing changes no erythema, scant bloody drainage from incision IV abx per ID follow cultures patient sent for repeat MRI by ID - awaiting results
[2018-06-21] MEDS: Senna/Docusate Sodium 8.6/50 MG Tablet PO SCH ×2 (09:32→20:51)
[2018-06-21] MEDS: Rivaroxaban 10 MG Tablet PO SCH (09:32)
[2018-06-21] MEDS: Methadone 10 MG Tablet PO SCH ×2 (09:32→20:51)
--- NOTE | 2018-06-21 11:21 | P.PN ---
Subjective Interval history: Follow-up sepsis/left thigh fasciitis/history of IVDU June 21, 2018-patient seen and examined, afebrile no acute event overnight. Stated she has not talked to anyone about her current admission Physical Exam Vital signs: Vital Signs 06/20/18 12:00 06/20/18 16:00 06/20/18 19:13 Temperature 97.7 F 99.4 F Pulse Rate 95 H 87 Respiratory Rate 20 16 16 Blood Pressure 99/57 L 111/63 Pulse Oximetry 97 98 06/20/18 20:00 06/21/18 00:00 06/21/18 04:00 Temperature 98.3 F 98.7 F 98.2 F Pulse Rate 93 H 95 H 87 Respiratory Rate 20 20 20 Blood Pressure 109/60 112/66 94/54 L Pulse Oximetry 98 100 96 06/21/18 08:00 Temperature 98.5 F Pulse Rate 78 Respiratory Rate 16 Blood Pressure 92/59 L Pulse Oximetry 96 Intake & Output 06/20/18 06/21/18 06/21/18 18:59 06:59 18:59 Intake Total 50 / 50 1225.0 / 1225.0 312.5 / 312.5 Balance 50 / 50 1225.0 / 1225.0 312.5 / 312.5 Intake: IV 50 / 50 775.0 / 775.0 312.5 / 312.5 Cleocin 900 mg/NS Premix 900 mg 100 / 100 50 / 50 In 50 ml @ 100 mls/hr IV.SIG Q8H [facility] Rx#:[id number] Zosyn 3.375 GM Premix 50 ML @ 50 / 50 150 / 150 100 mls/hr IV.SIG Q6H [facility] Rx#: [id number] Vancomycin Inj 1,250 MG In NS 0 / 0 525.0 / 525.0 262.5 / 262.5 Inj 250 ML @ 250 mls/hr IV.SIG Q8H [facility] Rx#:[id number] Oral 450 / 450 Other: Date of Last Bowel Movement 06/17/18 06/17/18 Narrative: GENERAL: NAD SKIN: Warm and dry. HEAD: Atraumatic. Normocephalic. EYES: Pupils equal and round. No scleral icterus. No injection or drainage. ENT: No nasal bleeding or discharge. Mucous membranes pink and moist. NECK: Trachea midline. No JVD. CARDIOVASCULAR: Regular rate and rhythm. RESPIRATORY: No accessory muscle use. Clear to auscultation. Breath sounds equal bilaterally. GASTROINTESTINAL: Abdomen soft, non-tender, nondistended. Hepatic and splenic margins not palpable. MUSCULOSKELETAL: Extremities without clubbing, cyanosis, or edema. No obvious deformities. NEUROLOGICAL: Awake and alert. No obvious cranial nerve deficits. Motor grossly within normal limits. Five out of 5 muscle strength in the arms and legs. Normal speech. PSYCHIATRIC: Appropriate mood and affect; insight and judgment normal. Results - Labs CBC & Chem 7: 06/19/18 10:10 06/19/18 10:10 Laboratory Results - last 24 hr 06/20/18 16:34 Vancomycin Trough 6.4 Microbiology 06/18/18 12:00 Blood - Peripheral Aerobic Blood Culture - Preliminary No growth in 3 days 06/18/18 12:00 Blood - Peripheral Anaerobic Blood Culture - Final S. aureus MRSA 06/18/18 22:45 Wound - Thigh Gram Stain - Final 06/18/18 22:45 Wound - Thigh Wound Culture - Final Group A beta Strep 06/18/18 22:43 Wound - Thigh Gram Stain - Final 06/18/18 22:43 Wound - Thigh Wound Culture - Preliminary Klebsiella pneumoniae Group A beta Strep S. aureus MRSA 06/18/18 22:43 Wound - Thigh Fungal Smear - Final Rare budding yeast 06/18/18 22:43 Wound - Thigh Acid Fast Bacilli Smear - Final No acid fast bacilli seen 06/18/18 11:50 Blood - Peripheral Aerobic Blood Culture - Final S. aureus MRSA 06/18/18 11:50 Blood - Peripheral Anaerobic Blood Culture - Final Group A beta Strep S. aureus MRSA 06/18/18 22:45 Wound - Thigh Acid Fast Bacilli Smear - Final No acid fast bacilli seen - Imaging Impressions Femur MRI 06/20/18 00:00 CONCLUSION: 1. Interval incision in the anterior thigh soft tissues with some nonloculated fluid near the site of incision. 2. Overall increase in subcutaneous edema in the thigh especially anteriorly and medially with a slight increase in muscular edema involving the medial quadriceps musculature and adductor musculature. However no evidence for abscess within the deep thigh and no evidence for osteomyelitis. 3. Postcontrast images reveal some mild enhancement in the areas of cellulitis and myositis and some minimal enhancement around nonloculated fluid at the site of the incision. - Procedures 06/18/18by Dr. Mcknight: Incision, drainage, irrigation and debridement of necrotizing fasciitis infection, left thigh, 25 cm to include excisional debridement of skin, subcutaneous tissue, muscle, tendon fascia and exploration of the neurovascular bundle. Assessment and Plan - Assessment (1) Drug abuse, IV Code(s): F19.10 - Other psychoactive substance abuse, uncomplicated Status: Acute (2) Sepsis Code(s): A41.9 - Sepsis, unspecified organism Status: Acute - Plan 28 years old female with: Sepsis with L Thigh necrotizing fascitis/cellulitis/myositis with Bacteremia: acute. -Continue on broad-spectrum IV antibiotics with vancomycin and Zosyn. -L Femur MRI reviewed, shows extensive Cellulitis/myositis in the upper medial left thigh -Blood cultures collected, preliminary with group A strep and gram positive cocci -2d Echo unremarkable for any vegetations or endocarditis -Consulted ID, appreciate recommendations -Orthopedics consulted, performed I&D of necrotizing fascitis L thigh, 25cm excisional debridement of skin/subcutaneous tissue/muscle/fascia Suspected septic pulmonary emboli/infiltrate: CTA pulmonary showed No PE -chest x-ray revealed infiltrate -ID on board as above -Continue broad spectrum antibiotics Active IV polysubstance abuse -cessation counseling provided. -case management to provide resources for [place] and drug rehab upon discharge -monitor for withdrawal Chronic pain syndrome -methadone 10mg bid has been initiated by admitting physician DVT prophylaxispatient refusing Lovenox, initiated Xarelto. (2) Sepsis Qualifiers: Sepsis type: sepsis due to unspecified organism Qualified Code(s): A41.9 - Sepsis, unspecified organism
--- NOTE | 2018-06-21 13:40 | P.PNID ---
Subjective Remarks: pt co on pain, numbness pain 7 /10 no fever BP stable growing Kleb pneumo, MRSA, GAS from wound MRSA, GAS in bl clx MRI w/o e/o abscess Antibiotics: zosyn vanco clindamycin Allergies/Adverse Reactions: Allergies telithromycin [From Ketek] Allergy (Verified 06/18/18 09:52) Hives Objective Vital Signs 06/20/18 16:00 06/20/18 19:13 06/20/18 20:00 Temperature 99.4 F 98.3 F Pulse Rate 87 93 H Respiratory Rate 16 16 20 Blood Pressure 111/63 109/60 Pulse Oximetry 98 98 06/21/18 00:00 06/21/18 04:00 06/21/18 08:00 Temperature 98.7 F 98.2 F 98.5 F Pulse Rate 95 H 87 77 Respiratory Rate 20 20 16 Blood Pressure 112/66 94/54 L 92/59 L Pulse Oximetry 100 96 96 06/21/18 12:00 Temperature 98.6 F Pulse Rate 93 H Respiratory Rate 16 Blood Pressure 111/66 Pulse Oximetry 98 Intake & Output 06/20/18 06/21/18 06/21/18 18:59 06:59 18:59 Intake Total 50 / 50 1225.0 / 1225.0 312.5 / 312.5 Balance 50 / 50 1225.0 / 1225.0 312.5 / 312.5 Intake: IV 50 / 50 775.0 / 775.0 312.5 / 312.5 Cleocin 900 mg/NS Premix 900 mg 100 / 100 50 / 50 In 50 ml @ 100 mls/hr IV.SIG Q8H [facility] Rx#:[id number] Zosyn 3.375 GM Premix 50 ML @ 50 / 50 150 / 150 100 mls/hr IV.SIG Q6H [facility] Rx#: [id number] Vancomycin Inj 1,250 MG In NS 0 / 0 525.0 / 525.0 262.5 / 262.5 Inj 250 ML @ 250 mls/hr IV.SIG Q8H [facility] Rx#:[id number] Oral 450 / 450 Other: Date of Last Bowel Movement 06/17/18 06/17/18 06/17/18 06/18/18 12:00 Blood - Peripheral Aerobic Blood Culture - Preliminary No growth in 3 days 06/18/18 12:00 Blood - Peripheral Anaerobic Blood Culture - Final S. aureus MRSA 06/18/18 22:45 Wound - Thigh Gram Stain - Final 06/18/18 22:45 Wound - Thigh Wound Culture - Final Group A beta Strep 06/18/18 22:43 Wound - Thigh Gram Stain - Final 06/18/18 22:43 Wound - Thigh Wound Culture - Preliminary Klebsiella pneumoniae Group A beta Strep S. aureus MRSA 06/18/18 22:43 Wound - Thigh Fungal Smear - Final Rare budding yeast 06/18/18 22:43 Wound - Thigh Fungal Culture - Pending 06/18/18 22:43 Wound - Thigh Acid Fast Bacilli Smear - Final No acid fast bacilli seen 06/18/18 22:43 Wound - Thigh Mycobacterial Culture - Pending 06/18/18 11:50 Blood - Peripheral Aerobic Blood Culture - Final S. aureus MRSA 06/18/18 11:50 Blood - Peripheral Anaerobic Blood Culture - Final Group A beta Strep S. aureus MRSA 06/18/18 22:45 Wound - Thigh Acid Fast Bacilli Smear - Final No acid fast bacilli seen 06/18/18 22:45 Wound - Thigh Mycobacterial Culture - Pending 06/18/18 22:45 Wound - Thigh Fungal Smear - Final No fungal elements seen 06/18/18 22:45 Wound - Thigh Fungal Culture - Pending Imaging: ITS Impressions Chest CTA 06/18/18 00:00 CONCLUSION: 1. No pulmonary emboli. 2. Left lower lobe infiltrate with small area of nodularity involving the right upper lobe and small pneumatocele involving the right lower lobe which contains an air-fluid level. Overall these findings suggest infectious etiology. I would suggest a follow-up CT scan to document complete resolution. Chest X-Ray 06/18/18 11:20 CONCLUSION: Left lung presumed infiltrate. Follow-up to resolution recommended Femur MRI 06/20/18 00:00 CONCLUSION: 1. Interval incision in the anterior thigh soft tissues with some nonloculated fluid near the site of incision. 2. Overall increase in subcutaneous edema in the thigh especially anteriorly and medially with a slight increase in muscular edema involving the medial quadriceps musculature and adductor musculature. However no evidence for abscess within the deep thigh and no evidence for osteomyelitis. 3. Postcontrast images reveal some mild enhancement in the areas of cellulitis and myositis and some minimal enhancement around nonloculated fluid at the site of the incision. Physical Exam: GENERAL: NAD SKIN: Warm and dry. Multiple crusted lesions HEAD: Atraumatic. Normocephalic. EYES: Pupils equal and round. No scleral icterus. No injection or drainage. ENT: No nasal bleeding or discharge. Mucous membranes pink and moist. NECK: Trachea midline. No JVD. CARDIOVASCULAR: Regular rate and rhythm. RESPIRATORY: No accessory muscle use. Clear to auscultation. Breath sounds equal bilaterally. GASTROINTESTINAL: Abdomen soft, non-tender, nondistended. Hepatic and splenic margins not palpable. MUSCULOSKELETAL: Extremities without clubbing, cyanosis, or edema. L thigh much softer, less edematous incision dry, clean, well approximated + area of mild erythema + decreased light touch sensation to LLE overall thigh looks better NEUROLOGICAL: Awake and alert. Non focal PSYCHIATRIC: anxious Assessment and Plan - Plan Sepsis, GAS form L thigh nec fasc mixed Gram neg/gram positive infx sp emergent debridement still quite swollen MRI with ongoing muscle edema, but no fluid collection desdpite of worsenong MRI findings, clinically improved since y LLE. Estensive myositis, cellulitis nec fasc L thigh TV endocarditis suspected, 2D echo nl Pulmonary lesion susp for septic emboli change current abx to unasyn, vancomycin and clinda
[2018-06-21] MEDS: Ampicillin/Sulbactam Inj 3 GM in Sodium Chloride 0.9% Inj 100 ML IV.SIG SCH ×2 (15:36→20:51)
[2018-06-21] MEDS ORDERED: Pharmacy Ordered Lab Info OTHER ONE (16:45)
[2018-06-21] MEDS ORDERED: Sodium Chloride 0.9% 2 ML Flush PRN IV.FLUSH (19:52)
[2018-06-21] MEDS: Sodium Chloride 0.9% 2 ML Flush BID IV.FLUSH SCH (20:55)
[2018-06-22] MEDS: Ampicillin/Sulbactam Inj 3 GM in Sodium Chloride 0.9% Inj 100 ML IV.SIG SCH ×4 (02:16→20:47)
[2018-06-22] MEDS: Ketorolac Inj 30 MG/ML (IVP) Vial IV.PUSH PRN ×4 (02:20→20:46)
[2018-06-22] MEDS: Clindamycin 900 mg/NS Premix 900 MG/50 ML PIGGYBACK IV.SIG SCH ×3 (06:23→23:39)
[2018-06-22] MEDS ORDERED: Pharmacy Ordered Lab Info OTHER ONE (07:45)
[2018-06-22] MEDS: Methadone 10 MG Tablet PO SCH ×2 (08:07→20:46)
[2018-06-22] MEDS: Sodium Chloride 0.9% 2 ML Flush BID IV.FLUSH SCH ×2 (08:08→20:47)
[2018-06-22] MEDS: Rivaroxaban 10 MG Tablet PO SCH (08:08)
[2018-06-22] MEDS: Senna/Docusate Sodium 8.6/50 MG Tablet PO SCH ×2 (08:08→20:47)
--- NOTE | 2018-06-22 11:24 | P.PNOP ---
Subjective Interval history: Patient was sleeping but was arousable. She states that her pain is well controlled and she feels better than yesterday. Physical Exam Vital signs: Vital Signs 06/21/18 12:00 06/21/18 16:00 06/21/18 20:00 Temperature 98.6 F 98.9 F 98.8 F Pulse Rate 82 96 H 88 Respiratory Rate 16 16 17 Blood Pressure 111/66 107/65 108/64 Pulse Oximetry 98 98 98 06/21/18 21:44 06/21/18 23:49 06/22/18 00:00 Temperature 98.6 F Pulse Rate 88 87 Respiratory Rate 18 18 Blood Pressure 110/65 Pulse Oximetry 98 06/22/18 01:39 06/22/18 04:22 06/22/18 06:23 Temperature 98.0 F Pulse Rate 98 H 81 Respiratory Rate 18 18 Blood Pressure 118/65 Pulse Oximetry 98 06/22/18 08:00 06/22/18 09:00 Temperature 98.9 F Pulse Rate 91 H 87 Respiratory Rate 20 Blood Pressure 118/79 Pulse Oximetry 99 Intake & Output 06/21/18 06/22/18 06/22/18 18:59 06:59 18:59 Intake Total 512.5 / 512.5 1412.5 / 1412.5 250 / 250 Balance 512.5 / 512.5 1412.5 / 1412.5 250 / 250 Intake: IV 512.5 / 512.5 412.5 / 412.5 250 / 250 Unasyn Inj 3 GM In NS Inj 100 100 / 100 100 / 100 200 / 200 ML @ 200 mls/hr IV.SIG Q6H [facility] Rx#:[id number] Cleocin 900 mg/NS Premix 900 mg 100 / 100 50 / 50 50 / 50 In 50 ml @ 100 mls/hr IV.SIG Q8H [facility] Rx#:[id number] Zosyn 3.375 GM Premix 50 ML @ 50 / 50 100 mls/hr IV.SIG Q6H [facility] Rx#: [id number] Vancomycin Inj 1,250 MG In NS 262.5 / 262.5 262.5 / 262.5 Inj 250 ML @ 250 mls/hr IV.SIG Q8H [facility] Rx#:[id number] Oral 1000 / 1000 Other: # Voids 5 Date of Last Bowel Movement 10/06/22/18 06/21/18 # Bowel Movements 2 Narrative: Left thigh dressings dry and intact, dressings slightly peeled back and incision was examined. Incision is healing well, sutures intact, no drainage, no surrounding erythema and/or signs of worsening cellulitis at this time, no calf pain, negative Homans sign, neurovascularly intact Results - Labs CBC & Chem 7: 06/19/18 10:10 06/22/18 08:15 Laboratory Results - last 24 hr 06/21/18 06/22/18 19:18 08:15 Creatinine 1.76 H Estimated GFR 34 L Vancomycin Trough 31.4 H 13.0 H Microbiology 06/18/18 12:00 Blood - Peripheral Aerobic Blood Culture - Preliminary No growth in 4 days 06/18/18 12:00 Blood - Peripheral Anaerobic Blood Culture - Final S. aureus MRSA 06/18/18 22:43 Wound - Thigh Gram Stain - Final 06/18/18 22:43 Wound - Thigh Wound Culture - Final Klebsiella pneumoniae Group A beta Strep S. aureus MRSA 06/18/18 22:45 Wound - Thigh Gram Stain - Final 06/18/18 22:45 Wound - Thigh Wound Culture - Final Group A beta Strep 06/18/18 22:43 Wound - Thigh Fungal Smear - Final Rare budding yeast 06/18/18 22:43 Wound - Thigh Acid Fast Bacilli Smear - Final No acid fast bacilli seen 06/18/18 11:50 Blood - Peripheral Aerobic Blood Culture - Final S. aureus MRSA 06/18/18 11:50 Blood - Peripheral Anaerobic Blood Culture - Final Group A beta Strep S. aureus MRSA - Procedures 06/18/18by Dr. Mcknight: Incision, drainage, irrigation and debridement of necrotizing fasciitis infection, left thigh, 25 cm to include excisional debridement of skin, subcutaneous tissue, muscle, tendon fascia and exploration of the neurovascular bundle. Assessment and Plan - Assessment and Plan s/p L hip/thigh I&D POD#4, Dr Mcknight LLE wbat daily dressing changes no erythema -incision examined IV abx per ID, changed to Unasyn, vancomycin and clindamycin Cultures positive for GABS, MRSA and Klebsiella. Dr. Mcknight did review recent MRI and found no acute changes requiring further surgical intervention at this time Orthopedics will continue to monitor
--- NOTE | 2018-06-22 11:54 | P.PN ---
Subjective Interval history: Follow-up sepsis/left thigh fasciitis/history of IVDU June 21, 2018-patient seen and examined, afebrile no acute event overnight. Stated she has not talked to anyone about her current admission June 22, 2018-patient seen and examined, she was resting and denies any lower extremity pain. Afebrile. Physical Exam Vital signs: Vital Signs 06/21/18 12:00 06/21/18 16:00 06/21/18 20:00 Temperature 98.6 F 98.9 F 98.8 F Pulse Rate 82 96 H 88 Respiratory Rate 16 16 17 Blood Pressure 111/66 107/65 108/64 Pulse Oximetry 98 98 98 06/21/18 21:44 06/21/18 23:49 06/22/18 00:00 Temperature 98.6 F Pulse Rate 88 87 Respiratory Rate 18 18 Blood Pressure 110/65 Pulse Oximetry 98 06/22/18 01:39 06/22/18 04:22 06/22/18 06:23 Temperature 98.0 F Pulse Rate 98 H 81 Respiratory Rate 18 18 Blood Pressure 118/65 Pulse Oximetry 98 06/22/18 08:00 06/22/18 09:00 Temperature 98.9 F Pulse Rate 91 H 87 Respiratory Rate 20 Blood Pressure 118/79 Pulse Oximetry 99 Intake & Output 06/21/18 06/22/18 06/22/18 18:59 06:59 18:59 Intake Total 512.5 / 512.5 1412.5 / 1412.5 250 / 250 Balance 512.5 / 512.5 1412.5 / 1412.5 250 / 250 Intake: IV 512.5 / 512.5 412.5 / 412.5 250 / 250 Unasyn Inj 3 GM In NS Inj 100 100 / 100 100 / 100 200 / 200 ML @ 200 mls/hr IV.SIG Q6H [facility] Rx#:[id number] Cleocin 900 mg/NS Premix 900 mg 100 / 100 50 / 50 50 / 50 In 50 ml @ 100 mls/hr IV.SIG Q8H [facility] Rx#:[id number] Zosyn 3.375 GM Premix 50 ML @ 50 / 50 100 mls/hr IV.SIG Q6H [facility] Rx#: [id number] Vancomycin Inj 1,250 MG In NS 262.5 / 262.5 262.5 / 262.5 Inj 250 ML @ 250 mls/hr IV.SIG Q8H [facility] Rx#:[id number] Oral 1000 / 1000 Other: # Voids 5 Date of Last Bowel Movement 06/17/18 06/22/18 06/21/18 # Bowel Movements 2 Narrative: GENERAL: NAD SKIN: Warm and dry. HEAD: Normocephalic. EYES: No scleral icterus. No injection or drainage. NECK: Supple, trachea midline. No JVD or lymphadenopathy. CARDIOVASCULAR: Regular rate and rhythm without murmurs, gallops, or rubs. RESPIRATORY: Breath sounds equal bilaterally. No accessory muscle use. GASTROINTESTINAL: Abdomen soft, non-tender, nondistended. MUSCULOSKELETAL: No cyanosis, or edema. BACK: Nontender without obvious deformity. No CVA tenderness. Results - Labs CBC & Chem 7: 06/19/18 10:10 06/22/18 08:15 Laboratory Results - last 24 hr 06/21/18 06/22/18 19:18 08:15 Creatinine 1.76 H Estimated GFR 34 L Vancomycin Trough 31.4 H 13.0 H Microbiology 06/18/18 12:00 Blood - Peripheral Aerobic Blood Culture - Preliminary No growth in 4 days 06/18/18 12:00 Blood - Peripheral Anaerobic Blood Culture - Final S. aureus MRSA 06/18/18 22:43 Wound - Thigh Gram Stain - Final 06/18/18 22:43 Wound - Thigh Wound Culture - Final Klebsiella pneumoniae Group A beta Strep S. aureus MRSA 06/18/18 22:45 Wound - Thigh Gram Stain - Final 06/18/18 22:45 Wound - Thigh Wound Culture - Final Group A beta Strep 06/18/18 22:43 Wound - Thigh Fungal Smear - Final Rare budding yeast 06/18/18 22:43 Wound - Thigh Acid Fast Bacilli Smear - Final No acid fast bacilli seen 06/18/18 11:50 Blood - Peripheral Aerobic Blood Culture - Final S. aureus MRSA 06/18/18 11:50 Blood - Peripheral Anaerobic Blood Culture - Final Group A beta Strep S. aureus MRSA - Procedures 06/18/18by Dr. Mcknight: Incision, drainage, irrigation and debridement of necrotizing fasciitis infection, left thigh, 25 cm to include excisional debridement of skin, subcutaneous tissue, muscle, tendon fascia and exploration of the neurovascular bundle. Assessment and Plan - Assessment (1) Drug abuse, IV Code(s): F19.10 - Other psychoactive substance abuse, uncomplicated Status: Acute (2) Sepsis Code(s): A41.9 - Sepsis, unspecified organism Status: Acute - Plan 28 years old female with: Sepsis with L Thigh necrotizing fascitis/cellulitis/myositis with Bacteremia: acute. -Currently on Unasyn, vancomycin and clindamycin. However secondary to elevated creatinine level vancomycin will be on hold today pending CMP . -L Femur MRI reviewed, shows extensive Cellulitis/myositis in the upper medial left thigh -Blood cultures collected, preliminary with group A strep and gram positive cocci -2d Echo unremarkable for any vegetations or endocarditis -Consulted ID, appreciate recommendations -Orthopedics consulted, performed I&D of necrotizing fascitis L thigh, 25cm excisional debridement of skin/subcutaneous tissue/muscle/fascia Suspected septic pulmonary emboli/infiltrate: CTA pulmonary showed No PE -chest x-ray revealed infiltrate -ID on board as above -Continue broad spectrum antibiotics Active IV polysubstance abuse -cessation counseling provided. -case management to provide resources for [facility] and drug rehab upon discharge -monitor for withdrawal Chronic pain syndrome -methadone 10mg bid has been initiated by admitting physician DVT prophylaxispatient refusing Lovenox, initiated Xarelto. (2) Sepsis Qualifiers: Sepsis type: sepsis due to unspecified organism Qualified Code(s): A41.9 - Sepsis, unspecified organism
[2018-06-23] MEDS: Ketorolac Inj 30 MG/ML (IVP) Vial IV.PUSH PRN ×2 (04:08→10:05)
[2018-06-23] MEDS: Ampicillin/Sulbactam Inj 3 GM in Sodium Chloride 0.9% Inj 100 ML IV.SIG SCH ×4 (04:09→21:38)
[2018-06-23] MEDS: Clindamycin 900 mg/NS Premix 900 MG/50 ML PIGGYBACK IV.SIG SCH ×3 (06:24→22:53)
[2018-06-23] MEDS: Methadone 10 MG Tablet PO SCH ×2 (09:17→21:37)
[2018-06-23] MEDS: Rivaroxaban 10 MG Tablet PO SCH (09:17)
[2018-06-23] MEDS: Senna/Docusate Sodium 8.6/50 MG Tablet PO SCH ×2 (09:17→21:39)
[2018-06-23] MEDS: Sodium Chloride 0.9% 2 ML Flush BID IV.FLUSH SCH ×2 (09:18→21:39)
--- NOTE | 2018-06-23 10:08 | P.PNOP ---
Subjective Interval history: Patient resting comfortably. No new complaints. Admits she is still in pain. Physical Exam Vital signs: Vital Signs 06/22/18 12:00 06/22/18 13:56 06/22/18 16:00 Temperature 98.7 F 98.8 F Pulse Rate 98 H 92 H 96 H Respiratory Rate 20 20 Blood Pressure 111/68 114/70 Pulse Oximetry 98 99 06/22/18 20:00 06/22/18 22:03 06/23/18 00:00 Temperature 99.4 F 98.8 F Pulse Rate 97 H 86 Respiratory Rate 18 18 18 Blood Pressure 118/79 111/69 Pulse Oximetry 100 97 06/23/18 04:00 06/23/18 04:58 06/23/18 08:00 Temperature 99.1 F 98.3 F Pulse Rate 91 H 87 Respiratory Rate 18 18 20 Blood Pressure 121/77 125/79 Pulse Oximetry 99 96 Intake & Output 06/22/18 06/23/18 06/23/18 18:59 06:59 18:59 Intake Total 1800 / 1800 250 / 250 50 / 50 Output Total 4 / 4 Balance 1796 / 1796 250 / 250 50 / 50 Weight 56.5 kg Intake: IV 400 / 400 250 / 250 50 / 50 Unasyn Inj 3 GM In NS Inj 100 300 / 300 200 / 200 ML @ 200 mls/hr IV.SIG Q6H [facility] Rx#:[id number] Cleocin 900 mg/NS Premix 900 mg 100 / 100 50 / 50 50 / 50 In 50 ml @ 100 mls/hr IV.SIG Q8H [facility] Rx#:[id number] Oral 1400 / 1400 Output: Urine 4 / 4 Other: # Voids 3 3 Date of Last Bowel Movement 06/21/18 06/21/18 06/23/18 # Bowel Movements 1 Narrative: Left thigh dressings dry and intact, dressings slightly peeled back and incision was examined. Incision is healing well, sutures intact, no drainage, no surrounding erythema and/or signs of worsening cellulitis at this time, no calf pain, negative Homans sign, neurovascularly intact Results - Labs CBC & Chem 7: 06/19/18 10:10 06/23/18 05:58 Laboratory Results - last 24 hr 06/23/18 05:58 Creatinine 1.65 H Estimated GFR 37 L Microbiology 06/18/18 12:00 Blood - Peripheral Aerobic Blood Culture - Preliminary No growth in 4 days 06/18/18 12:00 Blood - Peripheral Anaerobic Blood Culture - Final S. aureus MRSA 06/18/18 22:43 Wound - Thigh Gram Stain - Final 06/18/18 22:43 Wound - Thigh Wound Culture - Final Klebsiella pneumoniae Group A beta Strep S. aureus MRSA - Procedures 06/18/18by Dr. Mcknight: Incision, drainage, irrigation and debridement of necrotizing fasciitis infection, left thigh, 25 cm to include excisional debridement of skin, subcutaneous tissue, muscle, tendon fascia and exploration of the neurovascular bundle. Assessment and Plan - Assessment and Plan s/p L hip/thigh I&D POD#5, Dr Mcknight LLE wbat daily dressing changes no erythema/cellulitis - incision examined IV abx per ID, changed to Unasyn, vancomycin and clindamycin Cultures positive for GABS, MRSA and Klebsiella. Dr. Mcknight did review recent MRI and found no acute changes requiring further surgical intervention at this time Orthopedics will continue to monitor Discharge planning May consider repeat CBC to trend leukocytosis
--- NOTE | 2018-06-23 11:24 | P.PN ---
Subjective Interval history: Follow-up sepsis/left thigh fasciitis/history of IVDU June 21, 2018-patient seen and examined, afebrile no acute event overnight. Stated she has not talked to anyone about her current admission June 22, 2018-patient seen and examined, she was resting and denies any lower extremity pain. Afebrile. June 23, 2018-patient seen and examined, complains of multiple episode of loose stool. Denies any left lower extremity pain. Physical Exam Vital signs: Vital Signs 06/22/18 12:00 06/22/18 13:56 06/22/18 16:00 Temperature 98.7 F 98.8 F Pulse Rate 98 H 92 H 96 H Respiratory Rate 20 20 Blood Pressure 111/68 114/70 Pulse Oximetry 98 99 06/22/18 20:00 06/22/18 22:03 06/23/18 00:00 Temperature 99.4 F 98.8 F Pulse Rate 97 H 86 Respiratory Rate 18 18 18 Blood Pressure 118/79 111/69 Pulse Oximetry 100 97 06/23/18 04:00 06/23/18 04:58 06/23/18 08:00 Temperature 99.1 F 98.3 F Pulse Rate 91 H 87 Respiratory Rate 18 18 20 Blood Pressure 121/77 125/79 Pulse Oximetry 99 96 Intake & Output 06/22/18 06/23/18 06/23/18 18:59 06:59 18:59 Intake Total 1800 / 1800 250 / 250 150 / 150 Output Total 4 / 4 Balance 1796 / 1796 250 / 250 150 / 150 Weight 56.5 kg Intake: IV 400 / 400 250 / 250 150 / 150 Unasyn Inj 3 GM In NS Inj 100 300 / 300 200 / 200 100 / 100 ML @ 200 mls/hr IV.SIG Q6H [facility] Rx#:[id number] Cleocin 900 mg/NS Premix 900 mg 100 / 100 50 / 50 50 / 50 In 50 ml @ 100 mls/hr IV.SIG Q8H [facility] Rx#:[id number] Oral 1400 / 1400 Output: Urine 4 / 4 Other: # Voids 3 3 Date of Last Bowel Movement 06/21/18 06/21/18 06/23/18 # Bowel Movements 1 Narrative: GENERAL: NAD SKIN: Warm and dry. HEAD: Normocephalic. EYES: No scleral icterus. No injection or drainage. NECK: Supple, trachea midline. No JVD or lymphadenopathy. CARDIOVASCULAR: Regular rate and rhythm without murmurs, gallops, or rubs. RESPIRATORY: Breath sounds equal bilaterally. No accessory muscle use. GASTROINTESTINAL: Abdomen soft, non-tender, nondistended. MUSCULOSKELETAL: No cyanosis, or edema. Dressing over left thigh BACK: Nontender without obvious deformity. No CVA tenderness. Results - Labs CBC & Chem 7: 06/19/18 10:10 06/23/18 05:58 Laboratory Results - last 24 hr 06/23/18 05:58 Creatinine 1.65 H Estimated GFR 37 L Microbiology 06/18/18 12:00 Blood - Peripheral Aerobic Blood Culture - Final No growth in 5 days 06/18/18 12:00 Blood - Peripheral Anaerobic Blood Culture - Final S. aureus MRSA 06/18/18 22:43 Wound - Thigh Gram Stain - Final 06/18/18 22:43 Wound - Thigh Wound Culture - Final Klebsiella pneumoniae Group A beta Strep S. aureus MRSA - Procedures 06/18/18by Dr. Mcknight: Incision, drainage, irrigation and debridement of necrotizing fasciitis infection, left thigh, 25 cm to include excisional debridement of skin, subcutaneous tissue, muscle, tendon fascia and exploration of the neurovascular bundle. Assessment and Plan - Assessment (1) Drug abuse, IV Code(s): F19.10 - Other psychoactive substance abuse, uncomplicated Status: Acute (2) Sepsis Code(s): A41.9 - Sepsis, unspecified organism Status: Acute - Plan 28 years old female with: Sepsis with L Thigh necrotizing fascitis/cellulitis/myositis with Bacteremia: acute. -Currently on Unasyn, vancomycin and clindamycin. However secondary to elevated creatinine level vancomycin will be on hold today pending CMP . -L Femur MRI reviewed, shows extensive Cellulitis/myositis in the upper medial left thigh -Blood cultures collected, preliminary with group A strep and gram positive cocci -2d Echo unremarkable for any vegetations or endocarditis -Consulted ID, appreciate recommendations -Orthopedics consulted, performed I&D of necrotizing fascitis L thigh, 25cm excisional debridement of skin/subcutaneous tissue/muscle/fascia Suspected septic pulmonary emboli/infiltrate: CTA pulmonary showed No PE -chest x-ray revealed infiltrate -ID on board as above -Continue broad spectrum antibiotics Active IV polysubstance abuse -cessation counseling provided. -case management to provide resources for Alex Pineda and drug rehab upon discharge -monitor for withdrawal Chronic pain syndrome -methadone 10mg bid has been initiated by admitting physician Diarrhea Rule out C. difficile and treat accordingly June 23, 2018 DVT prophylaxispatient refusing Lovenox, initiated Xarelto. (2) Sepsis Qualifiers: Sepsis type: sepsis due to unspecified organism Qualified Code(s): A41.9 - Sepsis, unspecified organism
[2018-06-23] MEDS ORDERED: Vancomycin Inj 1,000 MG in Sodium Chlor 0.9% Inj 250 ML IV.SIG ONE (16:00)
[2018-06-23] MEDS ORDERED: Vancomycin Inj 1,000 MG in Sodium Chlor 0.9% Inj 250 ML IV.SIG SCH (16:00)
[2018-06-24] MEDS: Ampicillin/Sulbactam Inj 3 GM in Sodium Chloride 0.9% Inj 100 ML IV.SIG SCH ×4 (03:40→21:18)
[2018-06-24] MEDS: Clindamycin 900 mg/NS Premix 900 MG/50 ML PIGGYBACK IV.SIG SCH ×3 (06:10→23:31)
--- NOTE | 2018-06-24 09:37 | P.PN ---
Subjective Interval history: Follow-up sepsis/left thigh fasciitis/history of IVDU June 21, 2018-patient seen and examined, afebrile no acute event overnight. Stated she has not talked to anyone about her current admission June 22, 2018-patient seen and examined, she was resting and denies any lower extremity pain. Afebrile. June 23, 2018-patient seen and examined, complains of multiple episode of loose stool. Denies any left lower extremity pain. June 24, 2018-patient seen and examined, reports improvement of diarrheal episode. Physical Exam Vital signs: Vital Signs 06/23/18 12:00 06/23/18 12:45 06/23/18 16:00 Temperature 98.6 F 98.2 F Pulse Rate 85 87 86 Respiratory Rate 20 20 Blood Pressure 130/65 113/69 Pulse Oximetry 97 97 06/23/18 20:00 06/24/18 00:00 06/24/18 04:00 Temperature 98.4 F 99.4 F 99.6 F Pulse Rate 85 85 85 Respiratory Rate 18 18 18 Blood Pressure 126/79 130/86 105/57 L Pulse Oximetry 97 99 98 06/24/18 08:00 Temperature 98.6 F Pulse Rate 84 Respiratory Rate 18 Blood Pressure 102/61 Pulse Oximetry 97 Intake & Output 06/23/18 06/24/18 06/24/18 18:59 06:59 18:59 Intake Total 2230 / 2230 300 / 300 Output Total 5 / 5 Balance 2225 / 2225 300 / 300 Weight 56.4 kg Intake: IV 550 / 550 300 / 300 Unasyn Inj 3 GM In NS Inj 100 200 / 200 200 / 200 ML @ 200 mls/hr IV.SIG Q6H [facility] Rx#:[id number] Cleocin 900 mg/NS Premix 900 mg 100 / 100 100 / 100 In 50 ml @ 100 mls/hr IV.SIG Q8H [facility] Rx#:[id number] Vancomycin Inj 1,000 MG In NS 250 / 250 Inj 250 ML @ 250 mls/hr IV.SIG ONCE ONE Rx#:[id number] Oral 1680 / 1680 Output: Urine 4 / 4 Stool / Other: # Voids 4 2 Date of Last Bowel Movement 06/23/18 06/23/18 # Bowel Movements 3 Narrative: GENERAL: NAD SKIN: Warm and dry. HEAD: Normocephalic. EYES: No scleral icterus. No injection or drainage. NECK: Supple, trachea midline. No JVD or lymphadenopathy. CARDIOVASCULAR: Regular rate and rhythm without murmurs, gallops, or rubs. RESPIRATORY: Breath sounds equal bilaterally. No accessory muscle use. GASTROINTESTINAL: Abdomen soft, non-tender, nondistended. MUSCULOSKELETAL: No cyanosis, or edema. Dressing over left thigh BACK: Nontender without obvious deformity. No CVA tenderness. Results - Labs CBC & Chem 7: 06/19/18 10:10 06/23/18 05:58 Laboratory Results - last 24 hr 06/23/18 10:06 Stl C.difficile DNA Amp Negative St C. diff Tox Epid 027 Negative Microbiology 06/18/18 12:00 Blood - Peripheral Aerobic Blood Culture - Final No growth in 5 days 06/18/18 12:00 Blood - Peripheral Anaerobic Blood Culture - Final S. aureus MRSA - Procedures 06/18/18by Dr. Mcknight: Incision, drainage, irrigation and debridement of necrotizing fasciitis infection, left thigh, 25 cm to include excisional debridement of skin, subcutaneous tissue, muscle, tendon fascia and exploration of the neurovascular bundle. Assessment and Plan - Assessment (1) Drug abuse, IV Code(s): F19.10 - Other psychoactive substance abuse, uncomplicated Status: Acute (2) Sepsis Code(s): A41.9 - Sepsis, unspecified organism Status: Acute - Plan 28 years old female with: Sepsis with L Thigh necrotizing fascitis/cellulitis/myositis with Bacteremia: acute. -Currently on Unasyn, vancomycin and clindamycin. However secondary to elevated creatinine level vancomycin will be on hold today pending CMP . -L Femur MRI reviewed, shows extensive Cellulitis/myositis in the upper medial left thigh -Blood cultures collected, preliminary with group A strep and gram positive cocci -2d Echo unremarkable for any vegetations or endocarditis -Consulted ID, appreciate recommendations -Orthopedics consulted, performed I&D of necrotizing fascitis L thigh, 25cm excisional debridement of skin/subcutaneous tissue/muscle/fascia Suspected septic pulmonary emboli/infiltrate: CTA pulmonary showed No PE -chest x-ray revealed infiltrate -ID on board as above -Continue broad spectrum antibiotics Active IV polysubstance abuse -cessation counseling provided. -case management to provide resources for [facility] and drug rehab upon discharge -monitor for withdrawal Chronic pain syndrome -methadone 10mg bid has been initiated by admitting physician Diarrhea-improving C. difficile PCR negative DVT prophylaxispatient refusing Lovenox, initiated Xarelto. (2) Sepsis Qualifiers: Sepsis type: sepsis due to unspecified organism Qualified Code(s): A41.9 - Sepsis, unspecified organism
[2018-06-24] MEDS: Rivaroxaban 10 MG Tablet PO SCH (10:08)
[2018-06-24] MEDS: Methadone 10 MG Tablet PO SCH ×2 (10:08→21:15)
[2018-06-24] MEDS: Senna/Docusate Sodium 8.6/50 MG Tablet PO SCH ×2 (10:09→21:20)
[2018-06-24] MEDS: Sodium Chloride 0.9% 2 ML Flush BID IV.FLUSH SCH ×2 (10:09→21:19)
[2018-06-24] MEDS: Vancomycin Inj 1,000 MG in Sodium Chlor 0.9% Inj 250 ML IV.SIG SCH (23:32)
[2018-06-25] MEDS: Ampicillin/Sulbactam Inj 3 GM in Sodium Chloride 0.9% Inj 100 ML IV.SIG SCH ×4 (03:30→23:01)
[2018-06-25] MEDS: Clindamycin 900 mg/NS Premix 900 MG/50 ML PIGGYBACK IV.SIG SCH ×2 (06:55→14:47)
[2018-06-25] MEDS: Rivaroxaban 10 MG Tablet PO SCH (08:08)
[2018-06-25] MEDS: Methadone 10 MG Tablet PO SCH ×2 (08:08→21:25)
[2018-06-25] MEDS: Senna/Docusate Sodium 8.6/50 MG Tablet PO SCH ×2 (11:03→21:26)
[2018-06-25] MEDS: Sodium Chloride 0.9% 2 ML Flush BID IV.FLUSH SCH ×2 (11:03→21:26)
--- NOTE | 2018-06-25 11:15 | P.PN ---
Subjective Interval history: Follow-up sepsis/left thigh fasciitis/history of IVDU June 25, 2018-patient seen and examined, no change and she remains stable. Afebrile Physical Exam Vital signs: Vital Signs 06/24/18 11:55 06/24/18 12:00 06/24/18 16:00 Temperature 98.4 F 98.0 F Pulse Rate 89 82 81 Respiratory Rate 18 18 Blood Pressure 106/57 L 117/77 Pulse Oximetry 97 99 06/24/18 20:00 06/25/18 00:00 06/25/18 04:00 Temperature 98.9 F 98.3 F 98.1 F Pulse Rate 85 77 79 Respiratory Rate 18 18 18 Blood Pressure 124/72 96/56 L 116/67 Pulse Oximetry 100 97 97 06/25/18 08:00 Temperature 98.7 F Pulse Rate 75 Respiratory Rate 14 Blood Pressure 124/74 Pulse Oximetry 97 Intake & Output 06/24/18 06/25/18 06/25/18 18:59 06:59 18:59 Intake Total 1210 / 1210 800 / 800 150 / 150 Balance 1210 / 1210 800 / 800 150 / 150 Weight 56.4 kg Intake: IV 250 / 250 500 / 500 150 / 150 Unasyn Inj 3 GM In NS Inj 100 200 / 200 200 / 200 100 / 100 ML @ 200 mls/hr IV.SIG Q6H [facility] Rx#:[id number] Cleocin 900 mg/NS Premix 900 mg 50 / 50 50 / 50 50 / 50 In 50 ml @ 100 mls/hr IV.SIG Q8H [facility] Rx#:[id number] Vancomycin Inj 1,000 MG In NS 250 / 250 Inj 250 ML @ 250 mls/hr IV.SIG Q24H [facility] Rx#:[id number] Oral 960 / 960 300 / 300 Other: # Voids 5 3 Date of Last Bowel Movement 06/23/18 06/23/18 Narrative: GENERAL: NAD SKIN: Warm and dry. HEAD: Normocephalic. EYES: No scleral icterus. No injection or drainage. NECK: Supple, trachea midline. No JVD or lymphadenopathy. CARDIOVASCULAR: Regular rate and rhythm without murmurs, gallops, or rubs. RESPIRATORY: Breath sounds equal bilaterally. No accessory muscle use. GASTROINTESTINAL: Abdomen soft, non-tender, nondistended. MUSCULOSKELETAL: No cyanosis, or edema. Dressing over left thigh BACK: Nontender without obvious deformity. No CVA tenderness. Results - Labs CBC & Chem 7: 06/19/18 10:10 06/25/18 07:41 Laboratory Results - last 24 hr 06/24/18 06/24/18 06/25/18 16:42 20:12 07:41 Creatinine 1.71 H Estimated GFR 35 L Random Vancomycin 10.4 8.5 Microbiology 06/18/18 22:43 Wound - Thigh Fungal Smear - Final Rare budding yeast 06/18/18 22:43 Wound - Thigh Fungal Culture - Preliminary Yeast - ID to follow - Procedures 06/18/18by Dr. Mcknight: Incision, drainage, irrigation and debridement of necrotizing fasciitis infection, left thigh, 25 cm to include excisional debridement of skin, subcutaneous tissue, muscle, tendon fascia and exploration of the neurovascular bundle. Assessment and Plan - Assessment (1) Drug abuse, IV Code(s): F19.10 - Other psychoactive substance abuse, uncomplicated Status: Acute (2) Sepsis Code(s): A41.9 - Sepsis, unspecified organism Status: Acute - Plan 28 years old female with: Sepsis with L Thigh necrotizing fascitis/cellulitis/myositis with Bacteremia: acute. -Currently on Unasyn, vancomycin and clindamycin. -L Femur MRI reviewed, shows extensive Cellulitis/myositis in the upper medial left thigh -Blood cultures collected, preliminary with group A strep and gram positive cocci -2d Echo unremarkable for any vegetations or endocarditis -Consulted ID, appreciate recommendations -Orthopedics consulted, performed I&D of necrotizing fascitis L thigh, 25cm excisional debridement of skin/subcutaneous tissue/muscle/fascia Suspected septic pulmonary emboli/infiltrate: CTA pulmonary showed No PE -ID on board as above -Continue broad spectrum antibiotics Active IV polysubstance abuse -cessation counseling provided. -case management to provide resources for Alex [facility] and drug rehab upon discharge Chronic pain syndrome -methadone 10mg bid Diarrhea-improving C. difficile PCR negative DVT prophylaxisXarelto. (2) Sepsis Qualifiers: Sepsis type: sepsis due to unspecified organism Qualified Code(s): A41.9 - Sepsis, unspecified organism
[2018-06-25] MEDS ORDERED: Pharmacy Ordered Lab Info OTHER ONE (15:45)
--- NOTE | 2018-06-25 16:50 | P.PNID ---
Subjective Remarks: pt cont to co on pain no fever BP stable Antibiotics: amp/S vanco clindamycin Allergies/Adverse Reactions: Allergies telithromycin [From Ketek] Allergy (Verified 06/18/18 09:52) Hives Objective Vital Signs 06/24/18 20:00 06/25/18 00:00 06/25/18 04:00 Temperature 98.9 F 98.3 F 98.1 F Pulse Rate 85 77 79 Respiratory Rate 18 18 18 Blood Pressure 124/72 96/56 L 116/67 Pulse Oximetry 100 97 97 06/25/18 08:00 06/25/18 12:00 Temperature 98.7 F 98.5 F Pulse Rate 75 75 Respiratory Rate 14 16 Blood Pressure 124/74 119/65 Pulse Oximetry 97 98 Intake & Output 06/24/18 06/25/18 06/25/18 18:59 06:59 18:59 Intake Total 1210 / 1210 800 / 800 150 / 150 Balance 1210 / 1210 800 / 800 150 / 150 Weight 56.4 kg Intake: IV 250 / 250 500 / 500 150 / 150 Unasyn Inj 3 GM In NS Inj 100 200 / 200 200 / 200 100 / 100 ML @ 200 mls/hr IV.SIG Q6H [facility] Rx#:[id number] Cleocin 900 mg/NS Premix 900 mg 50 / 50 50 / 50 50 / 50 In 50 ml @ 100 mls/hr IV.SIG Q8H [facility] Rx#:[id number] Vancomycin Inj 1,000 MG In NS 250 / 250 Inj 250 ML @ 250 mls/hr IV.SIG Q24H [facility] Rx#:[id number] Oral 960 / 960 300 / 300 Other: # Voids 5 3 Date of Last Bowel Movement 06/23/18 06/23/18 06/18/18 22:43 Wound - Thigh Fungal Smear - Final Rare budding yeast 06/18/18 22:43 Wound - Thigh Fungal Culture - Preliminary Yeast - ID to follow 06/18/18 12:00 Blood - Peripheral Aerobic Blood Culture - Final No growth in 5 days 06/18/18 12:00 Blood - Peripheral Anaerobic Blood Culture - Final S. aureus MRSA Lab - Chemistry Results 06/25/18 07:41 Creatinine 1.71 H Estimated GFR 35 L Imaging: ITS Impressions Chest CTA 06/18/18 00:00 CONCLUSION: 1. No pulmonary emboli. 2. Left lower lobe infiltrate with small area of nodularity involving the right upper lobe and small pneumatocele involving the right lower lobe which contains an air-fluid level. Overall these findings suggest infectious etiology. I would suggest a follow-up CT scan to document complete resolution. Chest X-Ray 06/18/18 11:20 CONCLUSION: Left lung presumed infiltrate. Follow-up to resolution recommended Femur MRI 06/20/18 00:00 CONCLUSION: 1. Interval incision in the anterior thigh soft tissues with some nonloculated fluid near the site of incision. 2. Overall increase in subcutaneous edema in the thigh especially anteriorly and medially with a slight increase in muscular edema involving the medial quadriceps musculature and adductor musculature. However no evidence for abscess within the deep thigh and no evidence for osteomyelitis. 3. Postcontrast images reveal some mild enhancement in the areas of cellulitis and myositis and some minimal enhancement around nonloculated fluid at the site of the incision. Physical Exam: GENERAL: NAD SKIN: Warm and dry. Multiple crusted lesions EYES: Pupils equal and round. No scleral icterus. No injection or drainage. ENT: Mucous membranes pink and moist. CARDIOVASCULAR: Regular rate and rhythm. RESPIRATORY: No accessory muscle use. Clear to auscultation. Breath sounds equal bilaterally. GASTROINTESTINAL: Abdomen soft, non-tender, nondistended. Hepatic and splenic margins not palpable. MUSCULOSKELETAL: Extremities without clubbing, cyanosis, or edema. L thigh soft, not edematous incision dry, clean, well approximated no erythema + line tender NEUROLOGICAL: Awake and alert. Non focal PSYCHIATRIC: anxious Assessment and Plan - Plan Sepsis, GAS form L thigh nec fasc mixed Gram neg/gram positive infx sp emergent debridement still quite swollen MRI with ongoing muscle edema, but no fluid collection desdpite of worsenong MRI findings, clinically improved since yday growing yeast in the wound LLE. Extensive myositis, cellulitis nec fasc L thigh TV endocarditis suspected, 2D echo nl Pulmonary lesion susp for septic emboli will add micafungin fu yeast ID cont unasyn, vancomycin dc clindamycin
[2018-06-25] MEDS: Micafungin Inj 150 MG in Sodium Chlor 0.9% Inj 100 ML IV.SIG SCH (21:25)
[2018-06-25] MEDS: Vancomycin Inj 1,000 MG in Sodium Chlor 0.9% Inj 250 ML IV.SIG SCH (23:01)
[2018-06-26] MEDS: Ampicillin/Sulbactam Inj 3 GM in Sodium Chloride 0.9% Inj 100 ML IV.SIG SCH ×4 (02:09→22:07)
[2018-06-26] MEDS: Methadone 10 MG Tablet PO SCH ×2 (08:12→20:48)
[2018-06-26] MEDS: Rivaroxaban 10 MG Tablet PO SCH (08:12)
[2018-06-26] MEDS: Acetaminophen 325 MG Tablet PO PRN (08:14)
[2018-06-26] MEDS: Senna/Docusate Sodium 8.6/50 MG Tablet PO SCH ×2 (08:15→20:48)
[2018-06-26] MEDS: Sodium Chloride 0.9% 2 ML Flush BID IV.FLUSH SCH ×2 (08:15→20:48)
--- NOTE | 2018-06-26 11:37 | P.PN ---
Subjective Interval history: Follow-up sepsis/left thigh fasciitis/history of IVDU June 25, 2018-patient seen and examined, no change and she remains stable. Afebrile June 26, 2018-patient seen and examined, awake this morning and denies any left was limited pain. Afebrile and denies any chest pain or shortness of breath. Physical Exam Vital signs: Vital Signs 06/25/18 12:00 06/25/18 16:00 06/25/18 20:00 Temperature 98.5 F 98.0 F 98.6 F Pulse Rate 75 89 78 Respiratory Rate 16 16 18 Blood Pressure 119/65 119/80 118/78 Pulse Oximetry 98 99 99 06/26/18 00:00 06/26/18 04:00 06/26/18 08:00 Temperature 98.2 F 98.6 F 98.0 F Pulse Rate 78 66 78 Respiratory Rate 18 18 14 Blood Pressure 119/71 111/68 110/65 Pulse Oximetry 96 95 95 Intake & Output 06/25/18 06/26/18 06/26/18 18:59 06:59 18:59 Intake Total 300 / 300 100 / 100 Balance 300 / 300 100 / 100 Weight 56.4 kg Intake: IV 300 / 300 100 / 100 Unasyn Inj 3 GM In NS Inj 100 200 / 200 ML @ 200 mls/hr IV.SIG Q6H [facility] Rx#:[id number] Cleocin 900 mg/NS Premix 900 mg 100 / 100 In 50 ml @ 100 mls/hr IV.SIG Q8H [facility] Rx#:[id number] Mycamine Inj 150 MG In NS Inj 100 / 100 100 ML @ 100 mls/hr IV.SIG Q24H [facility] Rx#:[id number] Other: # Voids 3 Date of Last Bowel Movement 06/23/18 06/23/18 06/23/18 Narrative: GENERAL: NAD SKIN: Warm and dry. HEAD: Normocephalic. EYES: No scleral icterus. No injection or drainage. NECK: Supple, trachea midline. No JVD or lymphadenopathy. CARDIOVASCULAR: Regular rate and rhythm without murmurs, gallops, or rubs. RESPIRATORY: Breath sounds equal bilaterally. No accessory muscle use. GASTROINTESTINAL: Abdomen soft, non-tender, nondistended. MUSCULOSKELETAL: No cyanosis, or edema. Dressing over left thigh BACK: Nontender without obvious deformity. No CVA tenderness. Results - Labs CBC & Chem 7: 06/19/18 10:10 06/25/18 07:41 - Procedures 06/18/18by Dr. Mcknight: Incision, drainage, irrigation and debridement of necrotizing fasciitis infection, left thigh, 25 cm to include excisional debridement of skin, subcutaneous tissue, muscle, tendon fascia and exploration of the neurovascular bundle. Assessment and Plan - Assessment (1) Drug abuse, IV Code(s): F19.10 - Other psychoactive substance abuse, uncomplicated Status: Acute (2) Sepsis Code(s): A41.9 - Sepsis, unspecified organism Status: Acute - Plan 28 years old female with: Sepsis with L Thigh necrotizing fascitis/cellulitis/myositis with Bacteremia: acute. -Currently on Unasyn, vancomycin and Micafungi. -L Femur MRI reviewed, shows extensive Cellulitis/myositis in the upper medial left thigh -Blood cultures collected, preliminary with group A strep and gram positive cocci -2d Echo unremarkable for any vegetations or endocarditis -Consulted ID, appreciate recommendations -Orthopedics consulted, performed I&D of necrotizing fascitis L thigh, 25cm excisional debridement of skin/subcutaneous tissue/muscle/fascia Suspected septic pulmonary emboli/infiltrate: CTA pulmonary showed No PE -ID on board as above -Continue broad spectrum antibiotics Active IV polysubstance abuse -cessation counseling provided. -case management to provide resources for [facility] and drug re[facility] upon discharge Chronic pain syndrome -methadone 10mg bid Diarrhea-improved C. difficile PCR negative DVT prophylaxisXarelto. (2) Sepsis Qualifiers: Sepsis type: sepsis due to unspecified organism Qualified Code(s): A41.9 - Sepsis, unspecified organism
[2018-06-26] MEDS: Vancomycin Inj 1,000 MG in Sodium Chlor 0.9% Inj 250 ML IV.SIG SCH (12:23)
[2018-06-26] MEDS: Micafungin Inj 150 MG in Sodium Chlor 0.9% Inj 100 ML IV.SIG SCH (20:47)
[2018-06-27] MEDS: Ampicillin/Sulbactam Inj 3 GM in Sodium Chloride 0.9% Inj 100 ML IV.SIG SCH ×3 (03:57→19:21)
[2018-06-27] MEDS: Senna/Docusate Sodium 8.6/50 MG Tablet PO SCH ×2 (09:15→22:54)
[2018-06-27] MEDS: Rivaroxaban 10 MG Tablet PO SCH (09:17)
[2018-06-27] MEDS: Methadone 10 MG Tablet PO SCH ×2 (09:18→22:53)
[2018-06-27] MEDS: Sodium Chloride 0.9% 2 ML Flush BID IV.FLUSH SCH ×2 (09:21→22:54)
--- NOTE | 2018-06-27 11:24 | P.PN ---
Subjective Interval history: Follow-up sepsis/left thigh fasciitis/history of IVDU June 25, 2018-patient seen and examined, no change and she remains stable. Afebrile June 26, 2018-patient seen and examined, awake this morning and denies any left was limited pain. Afebrile and denies any chest pain or shortness of breath. June 27, 2018-patient seen and examined; remains stable and no acute event overnight. Physical Exam Vital signs: Vital Signs 06/26/18 16:00 06/26/18 20:00 06/26/18 20:13 Temperature 98.8 F 99.0 F Pulse Rate 81 73 82 Respiratory Rate 14 18 Blood Pressure 123/73 124/82 Pulse Oximetry 99 97 06/27/18 00:00 06/27/18 04:00 06/27/18 04:49 Temperature 99.0 F 97.6 F Pulse Rate 72 63 63 Respiratory Rate 18 18 Blood Pressure 127/77 108/62 Pulse Oximetry 98 97 06/27/18 08:00 Temperature 97.9 F Pulse Rate 57 L Respiratory Rate 18 Blood Pressure 109/62 Pulse Oximetry 98 Intake & Output 06/26/18 06/27/18 06/27/18 18:59 06:59 18:59 Intake Total 1650 / 1650 300 / 300 Balance 1650 / 1650 300 / 300 Intake: IV 450 / 450 300 / 300 Unasyn Inj 3 GM In NS Inj 100 200 / 200 200 / 200 ML @ 200 mls/hr IV.SIG Q6H [facility] Rx#:[id number] Mycamine Inj 150 MG In NS Inj 100 / 100 100 ML @ 100 mls/hr IV.SIG Q24H [facility] Rx#:[id number] Vancomycin Inj 1,000 MG In NS 250 / 250 Inj 250 ML @ 250 mls/hr IV.SIG Q24H [facility] Rx#:[id number] Oral 1200 / 1200 Other: # Voids 4 3 Date of Last Bowel Movement 06/23/18 06/23/18 06/26/18 Narrative: GENERAL: NAD SKIN: Warm and dry. HEAD: Normocephalic. EYES: No scleral icterus. No injection or drainage. NECK: Supple, trachea midline. No JVD or lymphadenopathy. CARDIOVASCULAR: Regular rate and rhythm without murmurs, gallops, or rubs. RESPIRATORY: Breath sounds equal bilaterally. No accessory muscle use. GASTROINTESTINAL: Abdomen soft, non-tender, nondistended. MUSCULOSKELETAL: No cyanosis, or edema. Dressing over left thigh BACK: Nontender without obvious deformity. No CVA tenderness. Results - Labs CBC & Chem 7: 06/19/18 10:10 06/27/18 05:23 Laboratory Results - last 24 hr 06/27/18 05:23 Creatinine 1.50 H Estimated GFR 41 L Microbiology 06/18/18 22:45 Wound - Thigh Fungal Smear - Final No fungal elements seen 06/18/18 22:45 Wound - Thigh Fungal Culture - Preliminary No growth in 1 week 06/18/18 22:45 Wound - Thigh Acid Fast Bacilli Smear - Final No acid fast bacilli seen 06/18/18 22:45 Wound - Thigh Mycobacterial Culture - Preliminary No growth in 1 week 06/18/18 22:43 Wound - Thigh Acid Fast Bacilli Smear - Final No acid fast bacilli seen 06/18/18 22:43 Wound - Thigh Mycobacterial Culture - Preliminary No growth in 1 week - Procedures 06/18/18by Dr. Mcknight: Incision, drainage, irrigation and debridement of necrotizing fasciitis infection, left thigh, 25 cm to include excisional debridement of skin, subcutaneous tissue, muscle, tendon fascia and exploration of the neurovascular bundle. Assessment and Plan - Assessment (1) Drug abuse, IV Code(s): F19.10 - Other psychoactive substance abuse, uncomplicated Status: Acute (2) Sepsis Code(s): A41.9 - Sepsis, unspecified organism Status: Acute - Plan 28 years old female with: Sepsis with L Thigh necrotizing fascitis/cellulitis/myositis with Bacteremia: acute. -Currently on Unasyn, vancomycin and Micafungi per ID -L Femur MRI reviewed, shows extensive Cellulitis/myositis in the upper medial left thigh -Blood cultures collected, preliminary with group A strep and gram positive cocci -2d Echo unremarkable for any vegetations or endocarditis -Orthopedics consulted, performed I&D of necrotizing fascitis L thigh, 25cm excisional debridement of skin/subcutaneous tissue/muscle/fascia Suspected septic pulmonary emboli/infiltrate: CTA pulmonary showed No PE -ID on board as above -Continue broad spectrum antibiotics Active IV polysubstance abuse -cessation counseling provided. -case management to provide resources for [facility] and drug rehab upon discharge Chronic pain syndrome -methadone 10mg bid Diarrhea-improved C. difficile PCR negative DVT prophylaxisXarelto. (2) Sepsis Qualifiers: Sepsis type: sepsis due to unspecified organism Qualified Code(s): A41.9 - Sepsis, unspecified organism
[2018-06-27] MEDS: Vancomycin Inj 1,000 MG in Sodium Chlor 0.9% Inj 250 ML IV.SIG SCH (13:02)
--- NOTE | 2018-06-27 13:25 | P.PNID ---
Subjective Remarks: pt cont to co on pain no fever BP stable Antibiotics: amp/S vanco micafungin Allergies/Adverse Reactions: Allergies telithromycin [From Ketek] Allergy (Verified 06/18/18 09:52) Hives Objective Vital Signs 06/26/18 16:00 06/26/18 20:00 06/26/18 20:13 Temperature 98.8 F 99.0 F Pulse Rate 81 73 82 Respiratory Rate 14 18 Blood Pressure 123/73 124/82 Pulse Oximetry 99 97 06/27/18 00:00 06/27/18 04:00 06/27/18 04:49 Temperature 99.0 F 97.6 F Pulse Rate 72 63 63 Respiratory Rate 18 18 Blood Pressure 127/77 108/62 Pulse Oximetry 98 97 06/27/18 08:00 06/27/18 12:00 Temperature 97.9 F 98.3 F Pulse Rate 57 L 75 Respiratory Rate 18 16 Blood Pressure 109/62 103/65 Pulse Oximetry 98 98 Intake & Output 06/26/18 06/27/18 06/27/18 18:59 06:59 18:59 Intake Total 1650 / 1650 300 / 300 100 / 100 Balance 1650 / 1650 300 / 300 100 / 100 Intake: IV 450 / 450 300 / 300 100 / 100 Unasyn Inj 3 GM In NS Inj 100 200 / 200 200 / 200 100 / 100 ML @ 200 mls/hr IV.SIG Q6H [facility] Rx#:[id number] Mycamine Inj 150 MG In NS Inj 100 / 100 100 ML @ 100 mls/hr IV.SIG Q24H [facility] Rx#:[id number] Vancomycin Inj 1,000 MG In NS 250 / 250 Inj 250 ML @ 250 mls/hr IV.SIG Q24H [facility]Y Rx#:[id number] Oral 1200 / 1200 Other: # Voids 4 3 Date of Last Bowel Movement 06/23/18 06/23/18 06/26/18 06/18/18 22:45 Wound - Thigh Fungal Smear - Final No fungal elements seen 06/18/18 22:45 Wound - Thigh Fungal Culture - Preliminary No growth in 1 week 06/18/18 22:45 Wound - Thigh Acid Fast Bacilli Smear - Final No acid fast bacilli seen 06/18/18 22:45 Wound - Thigh Mycobacterial Culture - Preliminary No growth in 1 week 06/18/18 22:43 Wound - Thigh Acid Fast Bacilli Smear - Final No acid fast bacilli seen 06/18/18 22:43 Wound - Thigh Mycobacterial Culture - Preliminary No growth in 1 week 06/18/18 22:43 Wound - Thigh Fungal Smear - Final Rare budding yeast 06/18/18 22:43 Wound - Thigh Fungal Culture - Preliminary Yeast - ID to follow Lab - Chemistry Results 06/27/18 05:23 Creatinine 1.50 H Estimated GFR 41 L Imaging: ITS Impressions Chest CTA 06/18/18 00:00 CONCLUSION: 1. No pulmonary emboli. 2. Left lower lobe infiltrate with small area of nodularity involving the right upper lobe and small pneumatocele involving the right lower lobe which contains an air-fluid level. Overall these findings suggest infectious etiology. I would suggest a follow-up CT scan to document complete resolution. Chest X-Ray 06/18/18 11:20 CONCLUSION: Left lung presumed infiltrate. Follow-up to resolution recommended Femur MRI 06/20/18 00:00 CONCLUSION: 1. Interval incision in the anterior thigh soft tissues with some nonloculated fluid near the site of incision. 2. Overall increase in subcutaneous edema in the thigh especially anteriorly and medially with a slight increase in muscular edema involving the medial quadriceps musculature and adductor musculature. However no evidence for abscess within the deep thigh and no evidence for osteomyelitis. 3. Postcontrast images reveal some mild enhancement in the areas of cellulitis and myositis and some minimal enhancement around nonloculated fluid at the site of the incision. Physical Exam: GENERAL: NAD SKIN: Warm and dry. Multiple crusted lesions EYES: Pupils equal and round. No scleral icterus. No injection or drainage. ENT: Mucous membranes pink and moist. CARDIOVASCULAR: Regular rate and rhythm. RESPIRATORY: No accessory muscle use. Clear to auscultation. Breath sounds equal bilaterally. GASTROINTESTINAL: Abdomen soft, non-tender, nondistended. Hepatic and splenic margins not palpable. MUSCULOSKELETAL: Extremities without clubbing, cyanosis, or edema. L thigh soft, not edematous incision dry, clean, well approximated no erythema + cat tender decreased sensation inthe thigh NEUROLOGICAL: Awake and alert. Non focal PSYCHIATRIC: anxious Assessment and Plan - Plan Sepsis, GAS, MRSA L thigh nec fasc mixed Gram neg/gram positive infx sp emergent debridement clinically improved since yday growing yeast in the wound TV endocarditis , 2D echo nl Pulmonary lesion susp for septic emboli on CT cont micafungin fu yeast ID cont unasyn, vancomycin repeat CXR dw Dr Block
[2018-06-27] MEDS ORDERED: Pharmacy Ordered Lab Info OTHER ONE (21:45)
[2018-06-27] MEDS: Micafungin Inj 150 MG in Sodium Chlor 0.9% Inj 100 ML IV.SIG SCH (22:53)
[2018-06-28] MEDS: Ampicillin/Sulbactam Inj 3 GM in Sodium Chloride 0.9% Inj 100 ML IV.SIG SCH ×5 (00:10→20:40)
--- NOTE | 2018-06-28 07:52 | XR ---
EXAM DATE: 06/28/2018 7:01 AM EDT AGE/SEX: 28 years / Female INDICATIONS: Cough, short of breath CLINICAL DATA: This is the patient's subsequent encounter. Patient reports that signs and symptoms h ave been present for 1 week and indicates a pain score of 10/10. MEDICAL/SURGICAL HISTORY: Asthma. Rheumatoid arthritis. Hysterectomy. COMPARISON: [facility] [place], CHEST 1V SINGLE AP, 06/18/2018. . FINDINGS: Consolidative changes in the left midlung are now cavitating. Right lung is clear. The heart and pulmonary vascularity are normal. The portion of the bony skeleton visualized is unrema rkable. CONCLUSION: Cavitating process left midlung stable in size. Cavitation is new. Electronically signed by: Daniel Ortega MD 06/28/2018 7:51 AM EDT
[2018-06-28] MEDS: Rivaroxaban 10 MG Tablet PO SCH (09:37)
[2018-06-28] MEDS: Methadone 10 MG Tablet PO SCH ×2 (09:37→20:39)
[2018-06-28] MEDS: Sodium Chloride 0.9% 2 ML Flush BID IV.FLUSH SCH ×2 (09:42→20:41)
[2018-06-28] MEDS: Senna/Docusate Sodium 8.6/50 MG Tablet PO SCH ×2 (09:43→20:40)
--- NOTE | 2018-06-28 12:15 | P.PN ---
Subjective Interval history: Follow-up sepsis/left thigh fasciitis/history of IVDU June 28, 2018-seen and examined, refused to do urine drug test. No chest pain or shortness of breath. Physical Exam Vital signs: Vital Signs 06/27/18 16:00 06/27/18 20:00 06/27/18 22:58 Temperature 98.1 F 98.9 F Pulse Rate 72 68 91 H Respiratory Rate 18 Blood Pressure 128/78 120/70 Pulse Oximetry 98 98 06/28/18 00:00 06/28/18 04:00 06/28/18 07:51 Temperature 98.6 F 98.6 F 98.0 F Pulse Rate 76 69 77 Respiratory Rate 18 18 18 Blood Pressure 115/56 L 109/64 114/59 L Pulse Oximetry 97 98 97 Intake & Output 06/27/18 06/28/18 06/28/18 18:59 06:59 18:59 Intake Total 830 / 830 300 / 300 Balance 830 / 830 300 / 300 Intake: IV 350 / 350 300 / 300 Unasyn Inj 3 GM In NS Inj 100 100 / 100 200 / 200 ML @ 200 mls/hr IV.SIG Q6H [facility] Rx#:[id number] Mycamine Inj 150 MG In NS Inj 100 / 100 100 ML @ 100 mls/hr IV.SIG Q24H [facility] Rx#:[id number] Vancomycin Inj 1,000 MG In NS 250 / 250 Inj 250 ML @ 250 mls/hr IV.SIG Q24H [facility] Rx#:[id number] Oral 480 / 480 Other: # Voids 4 Date of Last Bowel Movement 06/26/18 06/26/18 06/26/18 Narrative: GENERAL: NAD SKIN: Warm and dry. HEAD: Normocephalic. EYES: No scleral icterus. No injection or drainage. NECK: Supple, trachea midline. No JVD or lymphadenopathy. CARDIOVASCULAR: Regular rate and rhythm without murmurs, gallops, or rubs. RESPIRATORY: Breath sounds equal bilaterally. No accessory muscle use. GASTROINTESTINAL: Abdomen soft, non-tender, nondistended. MUSCULOSKELETAL: No cyanosis, or edema. Dressing over left thigh BACK: Nontender without obvious deformity. No CVA tenderness. Results - Labs CBC & Chem 7: 06/19/18 10:10 06/27/18 05:23 - Imaging Impressions Chest X-Ray 06/28/18 06:00 CONCLUSION: Cavitating process left midlung stable in size. Cavitation is new. - Procedures 06/18/18by Dr. Mcknight: Incision, drainage, irrigation and debridement of necrotizing fasciitis infection, left thigh, 25 cm to include excisional debridement of skin, subcutaneous tissue, muscle, tendon fascia and exploration of the neurovascular bundle. Assessment and Plan - Assessment (1) Drug abuse, IV Code(s): F19.10 - Other psychoactive substance abuse, uncomplicated Status: Acute (2) Sepsis Code(s): A41.9 - Sepsis, unspecified organism Status: Acute - Plan 28 years old female with: Sepsis with L Thigh necrotizing fascitis/cellulitis/myositis with Bacteremia: acute. -Currently on Unasyn, vancomycin and Micafungi per ID -L Femur MRI reviewed, shows extensive Cellulitis/myositis in the upper medial left thigh -Blood cultures collected, preliminary with group A strep and gram positive cocci -2d Echo unremarkable for any vegetations or endocarditis -Orthopedics consulted, performed I&D of necrotizing fascitis L thigh, 25cm excisional debridement of skin/subcutaneous tissue/muscle/fascia Suspected septic pulmonary emboli/infiltrate: CTA pulmonary showed No PE -ID on board as above -Continue broad spectrum antibiotics Active IV polysubstance abuse -cessation counseling provided. -case management to provide resources for [facility] and drug rehab upon discharge -She refused to perform repeat urine drug test Chronic pain syndrome -methadone 10mg bid Diarrhea-improved C. difficile PCR negative DVT prophylaxisXarelto. (2) Sepsis Qualifiers: Sepsis type: sepsis due to unspecified organism Qualified Code(s): A41.9 - Sepsis, unspecified organism
[2018-06-28 13:22] LABS: Amphetamine Screen,Urine Neg (Neg); Barbiturate Screen,Urine Neg (Neg); Cannabinoid Screen,Urine Neg (Neg); Cocaine Screen,Urine Neg (Neg)
[2018-06-28 13:28] LABS: Opiate Screen,Urine Neg (Neg)
[2018-06-28] MEDS: Vancomycin Inj 1,000 MG in Sodium Chlor 0.9% Inj 250 ML IV.SIG SCH (14:05)
[2018-06-28] MEDS: Micafungin Inj 150 MG in Sodium Chlor 0.9% Inj 100 ML IV.SIG SCH (20:40)
[2018-06-29] MEDS: Ampicillin/Sulbactam Inj 3 GM in Sodium Chloride 0.9% Inj 100 ML IV.SIG SCH ×4 (03:54→20:17)
[2018-06-29] MEDS: Rivaroxaban 10 MG Tablet PO SCH (09:44)
[2018-06-29] MEDS: Methadone 10 MG Tablet PO SCH ×2 (09:44→20:17)
[2018-06-29] MEDS: Sodium Chloride 0.9% 2 ML Flush BID IV.FLUSH SCH ×2 (09:45→20:18)
[2018-06-29] MEDS: Senna/Docusate Sodium 8.6/50 MG Tablet PO SCH ×2 (09:45→20:18)
[2018-06-29 10:59] LABS: Baso # (Auto) 0.1 th/mm3 (0.0-0.2); Baso % (Auto) 1.8 % (0.0-2.0); Eos # (Auto) 0.2 th/mm3 (0.0-0.4); Eos % (Auto) 3.2 % (0.0-4.0); Hematocrit 31.5 % (35.0-46.0); Hemoglobin 10.3 gm/dL (11.6-15.3); Lymph # (Auto) 2.3 th/mm3 (1.0-4.8); Lymph % (Auto) 35.2 % (9.0-44.0); Mean Corpuscular HGB Conc 32.8 % (32.0-36.0); Mean Corpuscular Hemoglobin 27.8 pg (27.0-34.0); Mean Corpuscular Volume 84.8 fL (80.0-100.0); Mean Platelet Volume 6.4 fL (7.0-11.0); Mono # (Auto) 0.6 th/mm3 (0.0-0.9); Mono % (Auto) 8.9 % (0.0-8.0); Neut # (Auto) 3.3 th/mm3 (1.8-7.7); Neut % (Auto) 50.9 % (16.0-70.0); Platelet Count 487 th/mm3 (150-450); Red Blood Count 3.71 mil/mm3 (4.00-5.30); Red Cell Distribution Width 15.2 % (11.6-17.2); White Blood Count 6.5 th/mm3 (4.0-11.0)
[2018-06-29 11:25] LABS: Glomerular Filtration Rate 43 mL/min (>89)
[2018-06-29 11:44] LABS: Anion Gap 10 meq/L (5-15); Blood Urea Nitrogen 28 mg/dL (7-18); Calcium 8.5 mg/dL (8.5-10.1); Chloride 103 meq/L (98-107); Glucose,Random 81 mg/dL (74-106); Potassium 4.2 meq/L (3.5-5.1); Sodium 140 meq/L (136-145)
[2018-06-29] MEDS ORDERED: Pharmacy Ordered Lab Info OTHER ONE (11:45)
[2018-06-29 11:48] LABS: Alanine Aminotransferase 32 U/L (10-53); Albumin 2.5 g/dL (3.4-5.0); Aspartate Aminotransferase 28 U/L (15-37)
[2018-06-29 11:50] LABS: Alkaline Phosphatase 100 U/L (45-117); Total Protein 9.1 g/dL (6.4-8.2)
[2018-06-29 12:14] LABS: Vancomycin,Trough 7.1 mcg/mL (5.0-10.0)
[2018-06-29] MEDS: Vancomycin Inj 1,000 MG in Sodium Chlor 0.9% Inj 250 ML IV.SIG SCH (12:21)
--- NOTE | 2018-06-29 12:21 | P.PN ---
Subjective Interval history: Follow-up sepsis/left thigh fasciitis/history of IVDU June 28, 2018-seen and examined, refused to do urine drug test. No chest pain or shortness of breath. June 29, 2018-patient seen and examined, urine drug test was negative. No other issues. Physical Exam Vital signs: Vital Signs 06/28/18 16:00 06/28/18 20:00 06/29/18 00:00 Temperature 98.5 F 98.0 F 98.9 F Pulse Rate 72 70 83 Respiratory Rate 18 18 18 Blood Pressure 114/74 117/62 125/78 Pulse Oximetry 97 98 99 06/29/18 04:00 06/29/18 08:00 06/29/18 09:00 Temperature 97.8 F 97.3 F L Pulse Rate 92 H 82 72 Respiratory Rate 18 17 Blood Pressure 116/78 102/54 L Pulse Oximetry 97 97 06/29/18 09:39 Temperature Pulse Rate Respiratory Rate 16 Blood Pressure Pulse Oximetry Intake & Output 06/28/18 06/29/18 06/29/18 18:59 06:59 18:59 Intake Total 450 / 450 300 / 300 100 / 100 Balance 450 / 450 300 / 300 100 / 100 Intake: IV 450 / 450 300 / 300 100 / 100 Unasyn Inj 3 GM In NS Inj 100 200 / 200 200 / 200 100 / 100 ML @ 200 mls/hr IV.SIG Q6H [facility] Rx#:[id number] Mycamine Inj 150 MG In NS Inj 100 / 100 100 ML @ 100 mls/hr IV.SIG Q24H [facility] Rx#:[id number] Vancomycin Inj 1,000 MG In NS 250 / 250 Inj 250 ML @ 250 mls/hr IV.SIG Q24H [facility] Rx#:[id number] Other: # Voids 4 1 Date of Last Bowel Movement 06/26/18 06/27/18 Narrative: GENERAL: NAD SKIN: Warm and dry. HEAD: Normocephalic. EYES: No scleral icterus. No injection or drainage. NECK: Supple, trachea midline. No JVD or lymphadenopathy. CARDIOVASCULAR: Regular rate and rhythm without murmurs, gallops, or rubs. RESPIRATORY: Breath sounds equal bilaterally. No accessory muscle use. GASTROINTESTINAL: Abdomen soft, non-tender, nondistended. MUSCULOSKELETAL: No cyanosis, or edema. Dressing over left thigh BACK: Nontender without obvious deformity. No CVA tenderness. Results - Labs CBC & Chem 7: 06/29/18 09:40 06/29/18 09:40 Laboratory Results - last 24 hr 06/28/18 06/29/18 06/29/18 09:50 09:40 09:40 WBC RBC Hgb Hct MCV MCH MCHC RDW Plt Count MPV Neut % (Auto) Lymph % (Auto) [place] % (Auto) Eos % (Auto) Baso % (Auto) Neut # (Auto) Lymph # (Auto) [place] # (Auto) Eos # (Auto) Baso # (Auto) WBC Differential Differential Comment Sodium 140 Cancelled Potassium 4.2 Cancelled Chloride 103 Cancelled Carbon Dioxide 27.0 Cancelled Anion Gap 10 Cancelled BUN 28 H Cancelled Creatinine 1.44 H Cancelled Estimated GFR 43 L Cancelled Random Glucose 81 Cancelled Calcium 8.5 Cancelled Prot Corrected Calcium Cancelled Total Bilirubin 0.2 Cancelled AST 28 Cancelled ALT 32 Cancelled Alkaline Phosphatase 100 Cancelled Total Protein 9.1 H Cancelled Albumin 2.5 L Cancelled Vancomycin Trough Cancelled Urine Opiates Screen Neg Ur Barbiturates Screen Neg Ur Amphetamines Screen Neg U Benzodiazepines Scrn Neg Urine Cocaine Screen Neg U Cannabinoids Screen Neg 06/29/18 09:40 WBC 6.5 RBC 3.71 L Hgb 10.3 L Hct 31.5 L MCV 84.8 MCH 27.8 MCHC 32.8 RDW 15.2 Plt Count 487 H D MPV 6.4 L Neut % (Auto) 50.9 Lymph % (Auto) 35.2 [place] % (Auto) 8.9 H Eos % (Auto) 3.2 Baso % (Auto) 1.8 Neut # (Auto) 3.3 Lymph # (Auto) 2.3 [place] # (Auto) 0.6 Eos # (Auto) 0.2 Baso # (Auto) 0.1 WBC Differential . Differential Comment Auto diff final Sodium Potassium Chloride Carbon Dioxide Anion Gap BUN Creatinine Estimated GFR Random Glucose Calcium Prot Corrected Calcium Total Bilirubin AST ALT Alkaline Phosphatase Total Protein Albumin Vancomycin Trough Urine Opiates Screen Ur Barbiturates Screen Ur Amphetamines Screen U Benzodiazepines Scrn Urine Cocaine Screen U Cannabinoids Screen - Procedures 06/18/18by Dr. Mcknight: Incision, drainage, irrigation and debridement of necrotizing fasciitis infection, left thigh, 25 cm to include excisional debridement of skin, subcutaneous tissue, muscle, tendon fascia and exploration of the neurovascular bundle. Assessment and Plan - Assessment (1) Drug abuse, IV Code(s): F19.10 - Other psychoactive substance abuse, uncomplicated Status: Acute (2) Sepsis Code(s): A41.9 - Sepsis, unspecified organism Status: Acute - Plan 28 years old female with: Sepsis with L Thigh necrotizing fascitis/cellulitis/myositis with Bacteremia: acute. -Currently on Unasyn, vancomycin and Micafungi per ID -L Femur MRI reviewed, shows extensive Cellulitis/myositis in the upper medial left thigh -Blood cultures collected, preliminary with group A strep and gram positive cocci -2d Echo unremarkable for any vegetations or endocarditis -Orthopedics consulted, performed I&D of necrotizing fascitis L thigh, 25cm excisional debridement of skin/subcutaneous tissue/muscle/fascia Suspected septic pulmonary emboli/infiltrate: CTA pulmonary showed No PE -ID on board as above -Continue broad spectrum antibiotics Active IV polysubstance abuse -cessation counseling provided. -case management to provide resources for [facility] and drug rehab upon discharge -repeat urine drug test negative 06/28 Chronic pain syndrome -methadone 10mg bid Diarrhea-improved C. difficile PCR negative DVT prophylaxisXarelto. (2) Sepsis Qualifiers: Sepsis type: sepsis due to unspecified organism Qualified Code(s): A41.9 - Sepsis, unspecified organism
[2018-06-29] MEDS: Micafungin Inj 150 MG in Sodium Chlor 0.9% Inj 100 ML IV.SIG SCH (20:17)
[2018-06-29] MEDS: Vancomycin Inj 750 MG in Sodium Chlor 0.9% Inj 250 ML IV.SIG SCH (23:50)
[2018-06-30] MEDS: Ampicillin/Sulbactam Inj 3 GM in Sodium Chloride 0.9% Inj 100 ML IV.SIG SCH ×4 (04:39→22:00)
[2018-06-30] MEDS: Methadone 10 MG Tablet PO SCH ×2 (09:24→22:52)
[2018-06-30] MEDS: Rivaroxaban 10 MG Tablet PO SCH (09:25)
[2018-06-30] MEDS: Senna/Docusate Sodium 8.6/50 MG Tablet PO SCH ×3 (09:25→23:36)
[2018-06-30] MEDS: Sodium Chloride 0.9% 2 ML Flush BID IV.FLUSH SCH ×2 (09:41→22:52)
--- NOTE | 2018-06-30 12:07 | P.PN ---
Subjective Interval history: Follow-up sepsis/left thigh fasciitis/history of IVDU June 30, 2018-patient seen and examined; patient is requesting that she be weaned off her Methadone Physical Exam Vital signs: Vital Signs 06/29/18 16:00 06/29/18 18:49 06/29/18 20:00 Temperature 98.1 F 98.8 F Pulse Rate 70 67 79 Respiratory Rate 17 20 Blood Pressure 118/63 117/72 Pulse Oximetry 98 98 06/30/18 00:00 06/30/18 04:00 06/30/18 08:00 Temperature 98.9 F 99.3 F 98.9 F Pulse Rate 84 84 70 Respiratory Rate 20 20 18 Blood Pressure 119/74 120/73 117/77 Pulse Oximetry 100 97 98 Intake & Output 06/29/18 06/30/18 06/30/18 19:59 06:59 18:59 Intake Total 100 / 100 Balance 100 / 100 Intake: IV 100 / 100 Unasyn Inj 3 GM In NS Inj 100 100 / 100 ML @ 200 mls/hr IV.SIG Q6H [facility] Rx#:[id number] Mycamine Inj 150 MG In NS Inj 100 ML @ 100 mls/hr IV.SIG Q24H [facility] Rx#:[id number] Vancomycin Inj 1,000 MG In NS Inj 250 ML @ 250 mls/hr IV.SIG Q24H [facility] Rx#:[id number] Vancomycin Inj 750 MG In NS Inj 250 ML @ 250 mls/hr IV.SIG Q12H [facility] Rx#:[id number] Oral Other: # Voids Date of Last Bowel Movement 06/29/18 # Bowel Movements Narrative: GENERAL: NAD SKIN: Warm and dry. HEAD: Normocephalic. EYES: No scleral icterus. No injection or drainage. NECK: Supple, trachea midline. No JVD or lymphadenopathy. CARDIOVASCULAR: Regular rate and rhythm without murmurs, gallops, or rubs. RESPIRATORY: Breath sounds equal bilaterally. No accessory muscle use. GASTROINTESTINAL: Abdomen soft, non-tender, nondistended. MUSCULOSKELETAL: No cyanosis, or edema. Dressing over left thigh BACK: Nontender without obvious deformity. No CVA tenderness. Results - Labs CBC & Chem 7: 06/29/18 09:40 06/29/18 09:40 - Procedures 06/18/18by Dr. Mcknight: Incision, drainage, irrigation and debridement of necrotizing fasciitis infection, left thigh, 25 cm to include excisional debridement of skin, subcutaneous tissue, muscle, tendon fascia and exploration of the neurovascular bundle. Assessment and Plan - Assessment (1) Drug abuse, IV Code(s): F19.10 - Other psychoactive substance abuse, uncomplicated Status: Acute (2) Sepsis Code(s): A41.9 - Sepsis, unspecified organism Status: Acute - Plan 28 years old female with: Sepsis with L Thigh necrotizing fascitis/cellulitis/myositis with Bacteremia: acute. -Currently on Unasyn, vancomycin and Micafungi per ID -L Femur MRI reviewed, shows extensive Cellulitis/myositis in the upper medial left thigh -Blood cultures collected, preliminary with group A strep and gram positive cocci -2d Echo unremarkable for any vegetations or endocarditis -Orthopedics consulted, performed I&D of necrotizing fascitis L thigh, 25cm excisional debridement of skin/subcutaneous tissue/muscle/fascia Suspected septic pulmonary emboli/infiltrate: CTA pulmonary showed No PE -ID on board as above -Continue broad spectrum antibiotics Active IV polysubstance abuse -cessation counseling provided. -case management to provide resources for [facility] and drug rehab upon discharge -repeat urine drug test negative 06/28 Chronic pain syndrome -methadone 10mg bid -Patient is requesting that she be weaned off Methadone Diarrhea-improved C. difficile PCR negative DVT prophylaxisXarelto. (2) Sepsis Qualifiers: Sepsis type: sepsis due to unspecified organism Qualified Code(s): A41.9 - Sepsis, unspecified organism
[2018-06-30] MEDS: Vancomycin Inj 750 MG in Sodium Chlor 0.9% Inj 250 ML IV.SIG SCH (12:39)
[2018-06-30] MEDS: Micafungin Inj 150 MG in Sodium Chlor 0.9% Inj 100 ML IV.SIG SCH (20:00)
[2018-07-01] MEDS: Vancomycin Inj 750 MG in Sodium Chlor 0.9% Inj 250 ML IV.SIG SCH ×3 (01:00→23:42)
[2018-07-01] MEDS: Ampicillin/Sulbactam Inj 3 GM in Sodium Chloride 0.9% Inj 100 ML IV.SIG SCH ×4 (02:04→21:54)
[2018-07-01] MEDS: Senna/Docusate Sodium 8.6/50 MG Tablet PO SCH ×2 (09:50→21:49)
[2018-07-01] MEDS: Methadone 10 MG Tablet PO SCH ×2 (09:50→21:53)
[2018-07-01] MEDS: Rivaroxaban 10 MG Tablet PO SCH (09:50)
[2018-07-01] MEDS: Sodium Chloride 0.9% 2 ML Flush BID IV.FLUSH SCH ×2 (09:59→21:54)
[2018-07-01] MEDS ORDERED: Pharmacy Ordered Lab Info OTHER ONE (11:45)
--- NOTE | 2018-07-01 17:13 | P.PNIM ---
Subjective Interval history: Pain is primary complaint today. Pain appears to be neurogenic in origin as patient's pain is at her wound which might represent neurogenic regrowth. She requests gabapentin. We discussed methadone wean and she is agreeable with this. She does not wish to be on narcotics. Physical Exam Vital signs: Vital Signs 06/30/18 20:00 07/01/18 00:00 07/01/18 04:00 Temperature 98.4 F 98.2 F 98.7 F Pulse Rate 80 65 74 Respiratory Rate 20 18 18 Blood Pressure 130/87 125/82 125/77 Pulse Oximetry 97 99 98 07/01/18 08:00 07/01/18 16:00 Temperature 97.8 F 98.3 F Pulse Rate 67 84 Respiratory Rate 20 20 Blood Pressure 96/56 L 125/85 Pulse Oximetry 99 97 Intake & Output 06/30/18 07/01/18 07/01/18 18:59 06:59 18:59 Intake Total 1257.5 / 1257.5 1037.5 / 1037.5 100 / 100 Balance 1257.5 / 1257.5 1037.5 / 1037.5 100 / 100 Intake: IV 457.5 / 457.5 557.5 / 557.5 100 / 100 Unasyn Inj 3 GM In NS Inj 100 200 / 200 200 / 200 100 / 100 ML @ 200 mls/hr IV.SIG Q6H [facility] Rx#:[id number] Mycamine Inj 150 MG In NS Inj 100 / 100 100 ML @ 100 mls/hr IV.SIG Q24H [facility] Rx#:[id number] Vancomycin Inj 750 MG In NS Inj 257.5 / 257.5 257.5 / 257.5 250 ML @ 250 mls/hr IV.SIG Q12H [facility] Rx#:[id number] Oral 800 / 800 480 / 480 Other: # Voids 4 4 Date of Last Bowel Movement 06/29/18 # Bowel Movements 1 Narrative: GENERAL: NAD, A&Ox3 HEAD: Normocephalic. NECK: Supple, trachea midline. No lymphadenopathy. EYES: No scleral icterus. No injection or drainage. CARDIOVASCULAR: Regular rate and rhythm without murmurs, gallops, or rubs. RESPIRATORY: Breath sounds equal bilaterally. No accessory muscle use. GASTROINTESTINAL: Abdomen soft, non-tender, nondistended. MUSCULOSKELETAL: No cyanosis, or edema. Left thigh has overlying bandage anteriorly. SKIN: Warm and dry. NEURO: No focal neurological deficits. Results - Labs CBC & Chem 7: 06/29/18 09:40 07/01/18 05:51 Laboratory Results - last 24 hr 07/01/18 07/01/18 05:51 12:30 Creatinine 1.13 H Estimated GFR 57 L Vancomycin Trough 17.4 H - Procedures 06/18/18by Dr. Mcknight: Incision, drainage, irrigation and debridement of necrotizing fasciitis infection, left thigh, 25 cm to include excisional debridement of skin, subcutaneous tissue, muscle, tendon fascia and exploration of the neurovascular bundle. Assessment and Plan - Assessment (1) Drug abuse, IV Code(s): F19.10 - Other psychoactive substance abuse, uncomplicated Status: Acute (2) Sepsis Code(s): A41.9 - Sepsis, unspecified organism Status: Acute - Plan 28 years old female admitted secondary to necrotizing fasciitis/cellulitis/ myositis of the left thigh Sepsis with L Thigh necrotizing fascitis/cellulitis/myositis with Bacteremia Continue Unasyn, vancomycin and Micafungi ID following Orthopedic surgeons following Gabapentin for pain Wean methadone Active IV polysubstance abuse Chronic pain syndrome Cessation recommended Wean off of methadone -cessation counseling provided. -case management to provide resources for [facility] and drug rehab upon discharge -repeat urine drug test negative 06/28 Chronic pain syndrome -methadone 10mg bid -Patient is requesting that she be weaned off Methadone Diarrhea improved DVT prophylaxis Xarelto (2) Sepsis Qualifiers: Sepsis type: sepsis due to unspecified organism Qualified Code(s): A41.9 - Sepsis, unspecified organism
[2018-07-01] MEDS: Gabapentin 100 MG Capsule PO SCH (17:39)
[2018-07-01] MEDS ORDERED: traZODone 100 MG Tablet PO SCH (21:00)
[2018-07-01] MEDS ORDERED: QUETIAPINE 400 MG PO SCH (21:00)
[2018-07-01] MEDS ORDERED: LAMOTRIGINE 400 MG PO SCH (21:00)
[2018-07-01] MEDS: Micafungin Inj 150 MG in Sodium Chlor 0.9% Inj 100 ML IV.SIG SCH (21:53)
[2018-07-02] MEDS: Ampicillin/Sulbactam Inj 3 GM in Sodium Chloride 0.9% Inj 100 ML IV.SIG SCH ×4 (03:08→22:12)
[2018-07-02] MEDS ORDERED: LAMOTRIGINE 400 MG PO SCH (09:00)
[2018-07-02] MEDS: Methadone 10 MG Tablet PO SCH (09:52)
[2018-07-02] MEDS: Senna/Docusate Sodium 8.6/50 MG Tablet PO SCH (09:53)
[2018-07-02] MEDS: Gabapentin 100 MG Capsule PO SCH ×3 (09:53→19:12)
[2018-07-02] MEDS: Rivaroxaban 10 MG Tablet PO SCH (09:53)
[2018-07-02] MEDS: Sodium Chloride 0.9% 2 ML Flush BID IV.FLUSH SCH (11:36)
[2018-07-02] MEDS: Vancomycin Inj 750 MG in Sodium Chlor 0.9% Inj 250 ML IV.SIG SCH (11:46)
--- NOTE | 2018-07-02 12:44 | P.PNIM ---
Subjective Interval history: 6 weeks of antibiotic treatments recommended from last negative culture. This is discussed with the patient. Patient willing to stay at this point. Physical Exam Vital signs: Vital Signs 07/01/18 16:00 07/01/18 19:29 07/01/18 20:00 Temperature 98.3 F 99.4 F Pulse Rate 84 67 76 Respiratory Rate 20 16 Blood Pressure 125/85 123/77 Pulse Oximetry 97 99 07/02/18 00:00 07/02/18 04:00 07/02/18 08:00 Temperature 97.8 F 98.6 F 98.2 F Pulse Rate 89 75 73 Respiratory Rate 16 16 16 Blood Pressure 127/68 101/60 114/65 Pulse Oximetry 99 99 98 Intake & Output 07/01/18 07/02/18 07/02/18 18:59 06:59 18:59 Intake Total 457.5 / 457.5 797.5 / 797.5 100 / 100 Balance 457.5 / 457.5 797.5 / 797.5 100 / 100 Intake: IV 457.5 / 457.5 557.5 / 557.5 100 / 100 Unasyn Inj 3 GM In NS Inj 100 200 / 200 200 / 200 100 / 100 ML @ 200 mls/hr IV.SIG Q6H [facility] Rx#:[id number] Mycamine Inj 150 MG In NS Inj 100 / 100 100 ML @ 100 mls/hr IV.SIG Q24H [facility] Rx#:[id number] Vancomycin Inj 750 MG In NS Inj 257.5 / 257.5 257.5 / 257.5 250 ML @ 250 mls/hr IV.SIG Q12H [facility] Rx#:[id number] Oral 240 / 240 Other: # Voids 1 Date of Last Bowel Movement 07/01/18 Narrative: GENERAL: NAD, A&Ox3 HEAD: Normocephalic. NECK: Supple, trachea midline. No lymphadenopathy. EYES: No scleral icterus. No injection or drainage. CARDIOVASCULAR: Regular rate and rhythm without murmurs, gallops, or rubs. RESPIRATORY: Breath sounds equal bilaterally. No accessory muscle use. GASTROINTESTINAL: Abdomen soft, non-tender, nondistended. MUSCULOSKELETAL: No cyanosis, or edema. Left thigh has overlying bandage anteriorly. SKIN: Warm and dry. NEURO: No focal neurological deficits. Results - Labs CBC & Chem 7: 06/29/18 09:40 07/01/18 05:51 Laboratory Results - last 24 hr 07/01/18 12:30 Vancomycin Trough 17.4 H - Procedures 06/18/18by Dr. Mcknight: Incision, drainage, irrigation and debridement of necrotizing fasciitis infection, left thigh, 25 cm to include excisional debridement of skin, subcutaneous tissue, muscle, tendon fascia and exploration of the neurovascular bundle. Assessment and Plan - Assessment (1) Drug abuse, IV Code(s): F19.10 - Other psychoactive substance abuse, uncomplicated Status: Acute (2) Sepsis Code(s): A41.9 - Sepsis, unspecified organism Status: Acute - Plan 28 years old female admitted secondary to necrotizing fasciitis/cellulitis/ myositis of the left thigh Sepsis with L Thigh necrotizing fascitis cellulitis myositis Bacteremia Infective endocarditis Septic nodules in lung 6 weeks of antibiotic treatment recommended per ID continue Unasyn, vancomycin and Micafungi ID following Orthopedic surgeons following Gabapentin for pain Wean methadone Active IV polysubstance abuse Chronic pain syndrome Cessation recommended Wean off of methadone, by 5mg every 1-2 weeks Diarrhea improved DVT prophylaxis Xarelto (2) Sepsis Qualifiers: Sepsis type: sepsis due to unspecified organism Qualified Code(s): A41.9 - Sepsis, unspecified organism
--- NOTE | 2018-07-03 09:19 | P.AMA ---
AMA Note - Diagnosis (1) Drug abuse, IV (2) Sepsis Recommended Treatment Course: Patient is recommended at least 6 weeks of IV antibiotic therapy for infective endocarditis with bacteremia, septic nodules in lungs, and left leg abscess. She was hospitalized for about 2 weeks on treatment. Patient left AMA at about 10pm on 07/02/18. AMA Statement: Patient Carmen Marley has decided to leave the hospital against medical advice. This patient has the capacity to refuse care and understands the risks of leaving, including permanent disability and/or , and has had an opportunity to ask questions about his/her condition. The patient has been informed that he/she may return for care at any time, and follow up has been arranged/advised. Discharge Disposition: Against Medical Advice Patient Condition on Discharge: Stable
--- NOTE | 2018-07-03 09:20 | P.DS ---
Date of admission: 06/18/18 13:55 Primary care physician: No Primary Care Physician Brief History from admission: 28-year-old white female with a history of polysubstance abuse on Subutex for chronic back pain presents to the emergency room due to 2-day history of intermittent chills of fever and increased left upper leg pain. She states that she injected IV Dilaudid earlier today and states that this is the first time she is use IV Dilaudid. She also admits to using meth and marijuana. She also reports a 1 day history of acute onset of bilateral chest pain worse when she takes a deep breath. She denies any shortness of breath nor any coughing. She was admitted here back in March for left lower leg cellulitis and superficial femoral phlebitis. She is refusing Lovenox injections for DVT prophylaxis at this time. She denies any nausea or vomiting. She denies any abdominal pain nor any constipation or diarrhea. She denies any symptoms of dysuria or frequency or urgency. DS: Diagnosis - Discharge Diagnosis (1) Drug abuse, IV Status: Acute (2) Sepsis Status: Acute DS: Summary Hospital Course: Admitted with sepsis related to IVDU. Patient is recommended at least 6 weeks of IV antibiotic therapy for infective endocarditis with bacteremia, septic nodules in lungs, and left leg abscess. She was hospitalized for about 2 weeks on treatment. Patient left AMA at about 10pm on 07/02/18. - Time Spent with Patient Total time spent providing and/or coordinating discharge services: Less than 30 minutes - Quality: VTE Deep Vein Thrombosis/Pulmonary Embolism Present on Admission: Yes Exam Vital signs: Vital Signs 07/02/18 12:55 07/02/18 15:20 07/02/18 20:00 Temperature 97.8 F 98.6 F 99.2 F Pulse Rate 73 76 73 Respiratory Rate 20 20 18 Blood Pressure 110/58 L 116/73 126/68 Pulse Oximetry 98 99 100 Intake & Output 07/02/18 07/03/18 07/03/18 18:59 06:59 18:59 Intake Total 697.5 / 697.5 Output Total / Balance 671.5 / 671.5 Intake: IV 457.5 / 457.5 Unasyn Inj 3 GM In NS Inj 100 200 / 200 ML @ 200 mls/hr IV.SIG Q6H [facility] Rx#:[id number] Vancomycin Inj 750 MG In NS Inj 257.5 / 257.5 250 ML @ 250 mls/hr IV.SIG Q12H [facility] Rx#:[id number] Oral 240 / 240 Output: Stool Estimated Blood Loss Other: # Voids 4 Date of Last Bowel Movement 07/01/18 # Bowel Movements 1 Results Procedures completed during hospitalization: 06/18/18by Dr. Mcknight: Incision, drainage, irrigation and debridement of necrotizing fasciitis infection, left thigh, 25 cm to include excisional debridement of skin, subcutaneous tissue, muscle, tendon fascia and exploration of the neurovascular bundle. Labs on day of discharge: Preliminary micro results at discharge 06/18/18 22:45 Fungal Culture - Preliminary Wound - Thigh No growth in 1 week 06/18/18 22:45 Mycobacterial Culture - Preliminary Wound - Thigh No growth in 1 week 06/18/18 22:43 Mycobacterial Culture - Preliminary Wound - Thigh No growth in 1 week 06/18/18 22:43 Fungal Culture - Preliminary Wound - Thigh Yeast - ID to follow - Impressions ITS Impressions Chest CTA 06/18/18 00:00 CONCLUSION: 1. No pulmonary emboli. 2. Left lower lobe infiltrate with small area of nodularity involving the right upper lobe and small pneumatocele involving the right lower lobe which contains an air-fluid level. Overall these findings suggest infectious etiology. I would suggest a follow-up CT scan to document complete resolution. Femur MRI 06/20/18 00:00 CONCLUSION: 1. Interval incision in the anterior thigh soft tissues with some nonloculated fluid near the site of incision. 2. Overall increase in subcutaneous edema in the thigh especially anteriorly and medially with a slight increase in muscular edema involving the medial quadriceps musculature and adductor musculature. However no evidence for abscess within the deep thigh and no evidence for osteomyelitis. 3. Postcontrast images reveal some mild enhancement in the areas of cellulitis and myositis and some minimal enhancement around nonloculated fluid at the site of the incision. Chest X-Ray 06/28/18 06:00 CONCLUSION: Cavitating process left midlung stable in size. Cavitation is new. Discharge Plan - Discharge Disposition Patient Disposition: Against Medical Advice - Discharge Condition Condition: Stable - Physicians Team Primary Care Provider: Primary Care Physici,No Attending Provider: Ramesh Covarrubias Other Providers: Pippa Grande MD ; Bryan Mcknight MD
[2018-07-04] MEDS ORDERED: Pharmacy Ordered Lab Info OTHER ONE (11:45)
== END 2018-07-02 22:17 | disposition left against medical advice (07) ==
LOC: NEPC 09:34 → NEDA 13:55 → N05 15:44
PROVIDERS: ADMIT Hospitalist; ATTEND Hospitalist